=== PATIENT | female | born 1960 | race Caucasian/White ===

== ENCOUNTER 2016-07-09 10:57 | Inpatient (IN) | payer OTHER ==
[~2016-07-09] VITALS: Ht 170.2 cm; Wt 74.8 kg
[~2016-07-09 10:57] MED LIST: ALBUTEROL0.09 MG/A1 INH; AUGMENTIN 875 M1 TAB PO; FLAGYL500 MG PO; LEVSIN0.125 M1 PO; OMEPRAZOLE20 MG PO; PREDNISONE 20MG20 MG PO; REGLAN10 MG PO; ROBITUSSIN W/CO10 ML PO; SEREVENT D0.046 MG/A PO; ZITHROMAX Z-PA250 M1 PO; ZOFRAN ODT4 M1 SL; ZOFRAN ODT4 MG SL; ZOLPIDEM TARTRA10 MG PO
--- NOTE | 2016-07-09 11:02 | NUR ---
IN REGISTRATION PRIOR TO TRIAGE
--- NOTE | 2016-07-09 11:07 | NUR ---
55 Y/O FEMALE REQUESTING ALCOHOL DETOX; STATES SHE DRINKS "A LOT"; PER FAMILY, ? 1 LARGE BOTTLE VODKA A DAY. PT ADMITS TO DRINKING TODAY, "LESS THAN USUAL". PT DENIES EVER DETOXING BEFORE. DENIES HX SEIZURES BUT STATES SHE DOES GET TREMULOUS. HR 100-118 IN TRIAGE. HX BREAST CANCER, L ARM RESTRICTED.
--- NOTE | 2016-07-09 11:15 | NUR ---
care of patient assumed. pt helped out of the wheelchair into the stretcher with assist. pt is unsteady on her feet. pt states she wants help. Had alcohol (vodka) prior to arrival. sister and boyfriend are at the bedside. fall risk precations in place. Pt feels nauseous when she tried to eat and feverish. Waiting for MD negron.
--- NOTE | 2016-07-09 11:20 | ED GENERAL ADULT ---
History of Present Illness General Chief Complaint: General Adult Stated Complaint: "PER SISTER ALCOHOL DETOX " Source: patient Exam Limitations: no limitations Vital Signs & Intake/Output Vital Signs & Intake/Output Vital Signs Date Time Temp Pulse Resp B/P B/P Pulse O2 O2 Flow FiO2 Mean Ox Delivery Rate 07/09 1425 98.2 121 18 116/53 07/09 1339 98.4 104 18 118/74 99 Room Air 07/09 1125 115 126/71 07/09 1104 97.1 116 16 127/86 95 Room Air Allergies Coded Allergies: NO KNOWN ALLERGIES (07/10/14) Reconcile Medications Omeprazole 40 MG CAPSULE. 1 CAP PO DAILY GERD (Reported) Zolpidem Tartrate 10 MG TABLET 1 TAB PO QPMP FOR SLEEP (Reported) Triage Note: 55 Y/O FEMALE REQUESTING ALCOHOL DETOX; STATES SHE DRINKS "A LOT"; PER FAMILY, ? 1 LARGE BOTTLE VODKA A DAY. PT ADMITS TO DRINKING TODAY, "LESS THAN USUAL". PT DENIES EVER DETOXING BEFORE. DENIES HX SEIZURES BUT STATES SHE DOES GET TREMULOUS. HR 100-118 IN TRIAGE. HX BREAST CANCER, L ARM RESTRICTED. Triage Nurses Notes Reviewed? yes Onset: Gradual Duration: week(s): Timing: recent history HPI: 07/09/16 12:36 pm 55-year-old female presents to the emergency department for alcohol intoxication. According to the patient and the family the patient recently lost her job. Since that time she's been drinking every day for the past 4 weeks. No history of DTs or seizures. She is requesting help with her alcohol dependency. The onset of the symptoms of been abrupt, the duration has been for weeks, the severity significant; as her symptoms required her to come to the emergency department for care. Past History Travel History Traveled to [place] past 21 day No Medical History Any Pertinent Medical History? see below for history Neurological: NONE EENT: NONE Cardiovascular: NONE Respiratory: COPD Gastrointestinal: GERD Hepatic: ?GALLBLADDER PROBLEM Renal: NONE Musculoskeletal: L KNEE MENISCUS TEAR Psychiatric: insomnia Endocrine: NONE Blood Disorders: NONE Cancer(s): R BREAST CA DOUBLE MASTECTOMY ENGAGEMENT MANAGER/Reproductive: fibroid, UTERINE FIBROID TUMORS Surgical History Surgical History: non-contributory Psychosocial History What is your primary language Barbadian Tobacco Use: Quit >30 days ago Family History Hx Contributory? No Review of Systems Review of Systems Constitutional: Denies: fever. Physical Exam Physical Exam General Appearance: alert, awake, anxious, moderate distress Head: atraumatic, normal appearance Eyes: Bilateral: normal appearance, PERRL, EOMI. Ears, Nose, Throat: normal pharynx, normal ENT inspection Neck: normal inspection, supple Respiratory: normal breath sounds, chest non-tender Cardiovascular: regular rate/rhythm Peripheral Pulses: 4+ dorsalis pedis (R), 4+ dorsalis pedis (L) Gastrointestinal: soft, non-tender Back: normal range of motion Extremities: normal inspection, no edema Neurologic/Psych: awake, alert Skin: intact, normal color, warm/dry Core Measures ACS in differential dx? No CVA/TIA Diagnosis: No Severe Sepsis Present: No Septic Shock Present: No Progress Differential Diagnoses I considered the following diagnoses in my evaluation of the patient: [Alcohol withdrawal, delirium tremens, alcoholic hepatitis] Plan of Care: Orders Procedure Date/time Status Heart Healthy Diet 07/09 D Active Admit to inpatient 07/09 1650 Active Vital Signs 07/09 1547 Active Code Status 07/09 1547 Active Patient Data 07/09 1530 Active Pathway - chart 07/09 1433 Active CIWA 07/09 1433 Active CIWA 07/09 1230 Active URINE DRUG SCREEN FOR ER ONLY 07/09 1202 Active ETHANOL 07/09 1202 Complete COMPREHENSIVE METABOLIC PANEL 07/09 1202 Complete CBC WITHOUT DIFFERENTIAL 07/09 1202 Complete AMYLASE 07/09 1202 Complete Current Medications Sig/Connor Start time Last Medication Dose Stop Time Status Admin Lorazepam 0.5 MG ONCE 07/14 0000 AC (Ativan) 07/14 0001 Lorazepam 0.5 MG Q6H 07/13 0000 UNVr (Ativan) 07/13 1801 Lorazepam 0.5 MG ONCE ONE 07/12 1800 AC (Ativan) 07/12 1801 Lorazepam 1 MG Q6H 07/12 0000 UNVr (Ativan) 07/12 1201 Lorazepam 1.5 MG Q12H 07/11 0600 UNVr (Ativan) 07/11 1801 Lorazepam 1 MG Q12H 07/11 0000 UNVr (Ativan) 07/11 1201 Lorazepam 1.5 MG Q6 07/10 0600 UNVr (Ativan) 07/10 1801 Lorazepam 2 MG Q2P PRN 07/09 1445 UNVr 07/09 (Ativan) 1457 Lorazepam 1 MG Q2P PRN 07/09 1445 UNVr (Ativan) Folic Acid 1 MG DAILY 07/09 143 UNVr (Folic Acid) 07/11 1001 Lorazepam 2 MG Q6 07/09 143 UNVr (Ativan) 07/10 0001 Multivitamins 1 TAB DAILY 07/09 143 UNVr (Theragran Vitamins) Thiamine HCl 100 MG DAILY 07/09 143 UNVr (Vitamin B1) 07/11 1001 Laboratory Tests 07/09/16 1226: Anion Gap 24 H, Estimated GFR > 60, BUN/Creatinine Ratio 34.4 H, Glucose 70, Calcium 7.6 L, Total Bilirubin 9.2 H, AST 580 H, ALT 149 H, Alkaline Phosphatase 292 H, Total Protein 6.9, Albumin 4.0, Globulin 2.9, Albumin/ Globulin Ratio 1.4, Amylase 34, CBC w Diff MAN DIFF ORDERED, RBC 4.14 L, MCV 101.2 H, MCH 34.7 H, RDW 15.6 H, MPV 8.6, Segmented Neutrophils 61, Band Neutrophils 22 H, Lymphocytes 8 L, Monocytes 9, Platelet Estimate DECREASED, Poikilocytosis 1+, Anisocytosis 1+, Macrocytic Cells 1+, Target Cells 1+, Stomatocytes 1+, PUBS MCHC 34.3, Serum Alcohol 481.0 Initial ED EKG: none Departure Departure Disposition: STILL A PATIENT Condition: Stable Clinical Impression Primary Impression: Alcoholic hepatitis Secondary Impressions: Alcohol dependence with withdrawal Referrals: SEBAS PICKENS,SHANIKA Hernández (PCP/Family) Departure Forms: Customer Survey General Discharge Information Admission Note Spoke With: JOAQUIN FORTUNE MD Documentation of Exam: Documentation of any treatments & extenuating circumstances including Concerns Regarding Discharge (functional status, medication knowledge or non-compliance, living conditions, etc.) that warrant an admission rather than observation: [The patient needs admission for IV fluids, Ativan protocol, neurological evaluations every 6 hours] Alcohol Withdrawl Admission ED Alcohol Detox Admission d/t: CIWA Score >15, Acute MedCond D/T Alcohol Critical Care Note Critical Care Note Critical Care Time: non-applicable Comments: The patient has a bilirubin level greater than 9. Alcoholic hepatitis. She is having a CIWA score of greater than 15 with an initial alcohol level greater than 400.
[2016-07-09] MEDS ORDERED: ZOLPIDEM TARTRA10 M1 PO (11:21)
[2016-07-09] MEDS ORDERED: OMEPRAZOLE40 M1 PO (11:21)
--- NOTE | 2016-07-09 12:07 | NUR ---
SECURITY AT BEDSIDE FOR WANDING, PER RN CARLEE Bender PT WILL NOT BE CHANGED INTO PAPER SCRUBS.
--- NOTE | 2016-07-09 12:29 | NUR ---
LABS DRAWN AND SENT BY THIS MST, BLUE,SST,LAV
[2016-07-09 12:47] LABS: HEMATOCRIT 41.8 % (37-47); MEAN CORPUSCULAR HGB 34.7 PG (27.0-31.0); MEAN CORPUSCULAR HGB CONC 34.3 G/DL (33.0-37.0); MEAN CORPUSCULAR VOLUME 101.2 FL (81.0-99.0); MEAN PLATELET VOLUME 8.6 FL (7.4-10.4); RBC DISTRIBUTION WIDTH 15.6 % (11.5-14.5); RED BLOOD CELL CT 4.14 /CUMM (4.20-5.40); WHITE BLOOD CELL COUNT 5.9 /CUMM (4.8-10.8)
[2016-07-09 12:58] LABS: PLATELET COUNT 84 /CUMM (130-400)
[2016-07-09 14:25] VITALS: BP 116/53
--- NOTE | 2016-07-09 15:03 | NUR ---
CASE MANAGEMENT LM: ANDREW AND I MET WITH PATIENT. ASKED PATIENT IF SHE IS OK WITH US CALLING STATE TO GET A TEMPORARY ID, PT AGREEABLE WITH SAME. CALLED STATES AND OBTAINED TEMPORARY ID #[id number]. CASE MANAGEMENT CONTINUING TO FOLLOW.
--- NOTE | 2016-07-09 15:51 | History & Physical ---
IRAM PICKENS,ABDON 07/09/16 1379: General Information and [facility] MD Statement: I have seen and personally examined THEE MORTON and documented this H&P. The patient is a 55 year old F who was brought by her family members for alcohol detoxification. Source of Information: patient, family (sister), boyfriend Exam Limitations: intoxication History of Present Illness: 55-year-old female with past medical history of right sided breast cancer, status post mastectomy, COPD, GERD, was brought in by her sister for alcohol detoxification. Of note, during the whole course of interview, patient oftentimes appeared drowsy, confused. According to her sister, her boyfriend, and the patient herself, patient used to drink 1-3 shots of cocktails every day, but since June 10 when she lost her job , she started getting depressed and drinking more than usual to the point where she would finish one bottle of vodka every other day. She lives with her warfarin, who says that he also helps her finish her drink, but is concerned that recently she has been drinking more than usual, to the point where today she could not move from where she was. She has been very weak and has not been eating well since past few days. Denies any fever, chills, or seizure-like activity, nausea, vomiting, tremors, dark-colored stools. She admits to being anxious, but does not take anything for anxiety as such. Her last drink was this morning when she had 5-6 pegs of alcohol. She does not have any history of seizures, nor she has tried alcohol detoxification in the past. She mentions that she has been feeling depressed, has lost interest in regular activities, has been drinking more than usual, occasionally sees things that others don't see/visual hallucination, but does note suicidal or homicidal. Her boyfriend admitted to having a pistol at home which nobody uses, but was immediately counseled/notified that this can be a risk and has to be relocated somewhere else. Allergies/Medications Allergies: Coded Allergies: NO KNOWN ALLERGIES (07/10/14) Home Med list Albuterol Sulfate (Ventolin Hfa) 90 MCG HFA.AER.AD 2 PUF INH Q4-6 PRN PRN COPD (Reported) Omeprazole 40 MG CAPSULE. 1 CAP PO DAILY GERD (Reported) Zolpidem Tartrate 10 MG TABLET 1 TAB PO QPMP FOR SLEEP (Reported) Past History Travel History Traveled to [place] past 21 day No Medical History Neurological: NONE EENT: NONE Cardiovascular: NONE Respiratory: COPD Gastrointestinal: GERD Hepatic: ?GALLBLADDER PROBLEM Renal: NONE Musculoskeletal: L KNEE MENISCUS TEAR Psychiatric: insomnia Endocrine: NONE Blood Disorders: NONE Cancer(s): R BREAST CA DOUBLE MASTECTOMY ORTHOPEDIC RN/Reproductive: fibroid, UTERINE FIBROID TUMORS Surgical History Surgical History: non-contributory Past Family/Social History Psychosocial History Where do you live? Home Who Do You Live With? boyfriend Primary Language: Telugu Smoking Status: Former Smoker ETOH Use: heavy use Functional Ability ADLs Independent: dressing, eating, toileting, bathing. Ambulation: independent IADLs Independent: shopping, housework, finances, food prep, telephone, transportation , medication admin. Review of Systems Review of Systems Constitutional: Reports: see HPI, weakness. Denies: chills, diaphoresis, fever, unexplained weight loss. EENTM: Reports: no symptoms. Cardiovascular: Reports: no symptoms. Respiratory: Reports: no symptoms. GI: Reports: no symptoms. Genitourinary: Reports: no symptoms. Musculoskeletal: Reports: no symptoms. Skin: Reports: no symptoms. Neurological/Psychological: Reports: anxiety. Hematologic/Endocrine: Reports: no symptoms. All Other Systems: Reviewed and Negative Post Menopausal: Yes Exam & Diagnostic Data Last 24 Hrs of Vital Signs/I&O Vital Signs Date Time Temp Pulse Resp B/P B/P Pulse O2 O2 Flow FiO2 Mean Ox Delivery Rate 07/09 1915 98.5 124 18 119/81 94 Nasal 2.0L Cannula 07/09 1855 Nasal 2.0L Cannula 07/09 1835 98.4 125 18 114/64 95 Nasal 2.0L Cannula 07/09 1819 122 16 07/09 1717 98.6 124 17 168/84 93 Room Air 07/09 1658 98.8 122 18 172/139 07/09 1425 98.2 121 18 116/53 07/09 1339 98.4 104 18 118/74 99 Room Air 07/09 1125 115 126/71 07/09 1104 97.1 116 16 127/86 95 Room Air Intake & Output 07/09 1600 07/09 0800 07/09 0000 Intake Total 1000 Output Total Balance 1000 Intake, IV 1000 Patient 74.843 kg Weight Weight Reported by Patient Measurement Method Physical Exam General Appearance Alert, Cooperative, No Acute Distress, often times confused Skin Temp/Moisture Exam: Warm/Dry Sepsis Skin Exam (color): Normal for Ethnicity Sepsis Peripheral Pulse Location: Radial Sepsis Peripheral Pulse Exam: Normal Sepsis Cap Refill Exam: <2 Sec Last 24 Hrs of Labs/Naand: Laboratory Tests 07/09/16 1913: PT 13.2 H, INR 1.26 H 07/09/16 1226: Anion Gap 24 H, Estimated GFR > 60, BUN/Creatinine Ratio 34.4 H, Glucose 70, Calcium 7.6 L, Magnesium 2.3, Total Bilirubin 9.2 H, AST 580 H, ALT 149 H, Alkaline Phosphatase 292 H, Total Protein 6.9, Albumin 4.0, Globulin 2.9, Albumin/Globulin Ratio 1.4, Amylase 34, CBC w Diff MAN DIFF ORDERED, RBC 4.14 L , MCV 101.2 H, MCH 34.7 H, RDW 15.6 H, MPV 8.6, Segmented Neutrophils 61, Band Neutrophils 22 H, Lymphocytes 8 L, Monocytes 9, Platelet Estimate DECREASED, Poikilocytosis 1+, Anisocytosis 1+, Macrocytic Cells 1+, Target Cells 1+, Stomatocytes 1+, PUBS MCHC 34.3, Serum Alcohol 481.0 Diagnostic Data Other Results Physical examnination: General: well nourished patient, not in distress, appears intoxicated, but coherant Head: Normocephalic, atraumatic Eyes: Pupils normal in size, regular, reacting to light and accommodation, EOM normal, ICTERUS PRESENT B/L Ears: B/l normal on inspection Nose: Normal on inspection Throat/mouth: Dry mucosa Neck: Supple, full range of motion, no thyromegaly Heart: Regular rate, regular rhythm Lung: Decreased breath sound bilaterally Abd: Soft, non-tender, distention appreciated, BUT NOT TENDER Back: Normal range of motion Extremities: Normal knee exam bilaterally, [no] pedal edema, Distal neurovascular intact Neurologic: Alert, oriented x3, Cranial exam grossly intact, Speech is clear and coherent Skin: Warm and dry Psychiatric: Calm, cooperative, coherant, [no SI], [no HI] Assessment/Plan Assessment: 55-year-old female with past medical history of right sided breast cancer, status post mastectomy, COPD, GERD, was brought in by her sister for alcohol detoxification. Patient is currently being admitted in the general medical floor for for any issues: # Alcohol withdrawal, secondary to alcohol dependence, undergoing detoxification Patient seems to have chronic alcohol-related problems, has recently started drinking heavily, more than usual, but has the will to cut down on alcohol. The first 24 hours the most susceptible for seizures during withdrawal, and the first surgery 2 hours are the ones for delirium tremens. -Admit in general medical floor -Monitor vitals, see what parameters regularly -Patient is put in CIWA protocol -Patient will receive IV infusion of thiamine, folic acid, thiamine tablets and multivitamins -Patient will be given standing dose of [id number] oral Ativan and as needed IV Ativan -We'll monitor for improvement in scores, and will taper Ativan accordingly -Chlordiazepoxide can also be used -Social works consult has been placed, will follow -Psychiatry services have been requested as well #Clinical depression Patient has clear signs of depression, although is not suicidal or homicidal at this point, and has just started alcohol detoxification, but as she improves, psychiatry consultation for depression seems to be appropriate. #Possible chronic liver disease Patient's liver function test results are not normal. Total bilirubin is 9.2, AST 580, ALT 149, alkaline phosphatase 292, INR of 1.26. This is a nonspecific hand of chronic liver disease, given her history of heavy alcoholism. -We'll follow liver function tests in days to come -Have ordered a limited ultrasound of right upper quadrant to rule out cirrhosis /liver disease -Will reassess tmorrow #Diet: Regular diet #DVT prophylaxis: ALPS #CODE STATUS is full code As Ranked By This Provider Problem List: 1. Alcohol dependence with withdrawal 2. Jaundice 3. COPD (chronic obstructive pulmonary disease) 4. GERD (gastroesophageal reflux disease) Core Measures/Miscellaneous Acute Coronary Syndrome ACS Diagnosis: No Cerebrovascular Accident CVA/TIA Diagnosis: No Congestive Heart Failure CHF Diagnosis: No Venous Thromboembolism VTE Risk Factors: Age > 40, Cancer/chemo/oth therapy, Smoking [facility] prophylaxis d/t: No contraindications No VTE Pharm Prophylaxis d/t: No contraindications VTE Diagnosis: No VTE Type: NONE VTE Confirmed by (Test): NONE Severe Sepsis Severe Sepsis Present: No Septic Shock Septic Shock Present: No Miscellaneous Documentation Attending Case Discussed With: JOAQUIN FORTUNE MD Primary Care Physician: SHANIKA MULLEN MD Patient sees these Specialists Psychiatry; Social works. Level of Patient Care: General Medicine JOAQUIN FORTUNE MD 07/09/16 2204: Attending MD Review Statement Attending Statement Attending MD Statement: examined this patient, discuss w/resident/PA/SILVER CHASER, agreed w/resident/PA/SILVER CHASER, reviewed EMR data (avail) Attending Assessment/Plan: 55F PMH EtOH abuse with agitation and tremor in the setting of alcohol withdrawal with rising CIWA scores and impending worsening of symptoms, given EtOH level of 450. Labs also consistent with alcoholic hepatitis. Will start Ativan standing and PRN, IV hydration, GI consult tomorrow, montior LFTs and electrolytes, potential transfer to ICU if worsens. ROSEMARY PARISI [facility] 07/10/16 0600: Resident Review Statement Resident Statement: examined this patient, discussed with production intern, agreed with production intern Other Findings: 55-year-old woman with a past medical history of right sided breast cancer, status post mastectomy, COPD, GERD. She was brought in by her sister for alcohol detoxification. This is her first detox attempt. She consumes half a pint of liquor every day. She has been drinking more heavily since she lost her job on June 10. She denies seizures but has been seeing some "adriano objects" in her vision since this morning. Her labs are significant for thrombocytopenia of 84, Total bilirubin 9.2, AST 580, ALT 149, ALP 292, Amylase normal. Serum alcohol 481. Physical examnination: General: well nourished patient, not in distress, appears intoxicated, but coherant Head: Normocephalic, atraumatic Eyes: Pupils normal in size, regular, reacting to light and accommodation, EOM normal, ICTERUS PRESENT B/L Ears: B/l normal on inspection Nose: Normal on inspection Throat/mouth: Dry mucosa Neck: Supple, full range of motion, no thyromegaly Heart: Regular rate, regular rhythm Lung: Decreased breath sound bilaterally Abd: Soft, non-tender, distention appreciated, BUT NOT TENDER Back: Normal range of motion Extremities: Normal knee exam bilaterally, [no] pedal edema, Distal neurovascular intact Neurologic: Alert, oriented x3, Cranial exam grossly intact, Speech is clear and coherent Skin: Warm and dry Psychiatric: Calm, cooperative, coherant, [no SI], [no HI] Problem list 1. Alcohol withdrawal 2. Alcoholic liver disease 3. GERD 4. COPD Plan Admit to Gen Med IV Ativan as per [facility] protocol PO librium 25 mg Q6 hrs standing Watch for severe withdrawal and low threshhold for ativan drip IV banana bag 1L x 1, then continue with PO multivitamins, thiamine and folic acid daily Monitor electrolytes and liver function test and relplete accordingly Do baseline EKG TRC evaluation for nebulilzaer therapy for hx of COPD IV morphine 2 mg Q6 hrs for severe pain DVT ppx ALPS Patient is full code
--- NOTE | 2016-07-09 15:51 | NUR ---
REPORT RECEIVED. PT RESTING COMFORTABLY AT THIS TIME. O2 SATURATION 98%RA AND HEART RATE 87. FAMILY AT BEDSIDE.
--- NOTE | 2016-07-09 15:52 | NUR ---
AWAITING URINE SPECIMEN.
--- NOTE | 2016-07-09 16:25 | NUR ---
CASE MANAGEMENT LM: SUBMITTED [facility] REQUEST FOR AUTH. WILL CONTINUE TO CHECK FOR POSSIBLE APPROVAL.
--- NOTE | 2016-07-09 16:38 | NUR ---
HOUSE STAFF IN ROOM EVALUATING THE PT.
[2016-07-09 16:58] VITALS: BP 172/139
--- NOTE | 2016-07-09 17:00 | NUR ---
CASE MANAGEMENT LM: AUTHORIZATION RECEIVED #[id number], DATES OF SERVICE 07/09/2016-07/14/2016. [address] BADILLO AND ADMITTING AWARE OF SAME.
--- NOTE | 2016-07-09 17:01 | NUR ---
VITAL SIGNS OBTAINED. CIWA SCORE OF 10. ADMINISTERED SCHEDULE ATIVAN ORDERED.
--- NOTE | 2016-07-09 17:14 | NUR ---
PT ADMITTED TO ROOM 204-1
--- NOTE | 2016-07-09 17:27 | NUR ---
ATTEMPTED TO CALL REPORT. RN WILL CALL BACK.
--- NOTE | 2016-07-09 17:47 | NUR ---
REPORT CALLED. PAGED HOUSE STAFF FOR PT'S HEART RATE OCCASIONALLY IN 130'S. HEART RATE 123 AT THIS TIME.
--- NOTE | 2016-07-09 17:49 | NUR ---
O2 OCCASIONALLY IN 80'S. PLACED ON O2 2L NC PER MOD'S ORDER. PT TO GET AN EKG PRIOR TO ADMISSION TO THE FLOOR.
[2016-07-09] MEDS ORDERED: VENTOLIN HFA18 GM INH (17:50)
--- NOTE | 2016-07-09 18:28 | NUR ---
PT'S EKG NOTED ST 122. REMAINS ALERT AND ORIENTED X 3. UPDATED FLOOR NURSE. PT READY TO BE TRANSFERED.
--- NOTE | 2016-07-09 18:41 | NUR ---
THEE MORTON Nurse Note by: COLIN BOLTON I agree with the FINANCE ADMIN findings/evaluation of this patient's condition. Entered by: COLIN BOLTON Date: 07/09/16 Time: 1840
[2016-07-09 19:15] VITALS: BP 119/81
[2016-07-09 19:37] LABS: PT 13.2 SEC (9.4-12.5)
--- NOTE | 2016-07-09 20:12 | NUR ---
NURSING NOTE; LATE ENTRY; PT ADMITTED TO ROOM 204-01 FROM THE ER VIA STRETCHER AT 1855, PT ALERT AND FORGETFUL AT TIMES, ON 2LNC, SKIN INTACT, FAMILY AT BEDISIDE, ORIENTED TO ROOM AND CALL GONZALEZ, SAFETY PRECAUTIONS IN PLACE
--- NOTE | 2016-07-09 22:04 | Admission Certification ---
Admission Certification Certification Statement - As attending physician, I certify that at the time of - admission, based on clinical presentation, severity of - symptoms, need for further diagnostic testing and - therapeutic interventions, and risk of adverse outcomes - without in-hospital treatment, in my clinical assessment, - this patient requires an acute hospital stay for a minimum - of two nights or longer. I have also considered psychsocial - factors such as support system, advanced age, financial - issues, cognitive issues, and failed out-patient treatments, - past re-admission history, safety of patient, and lack of - compliance as applicable. Specific rationale supporting this admission is: Alcohol withdrawal with alcoholic hepatitis
[2016-07-09 22:42] VITALS: BP 120/80
[2016-07-10 02:00] VITALS: BP 140/80
[2016-07-10 06:00] VITALS: BP 140/66
[2016-07-10 07:17] VITALS: BP 140/66
--- NOTE | 2016-07-10 07:43 | Cons- Gastroenterology ---
General Information and HPI Consulting Request Date of Consult: 07/10/16 Requested By: JOAQUIN FORTUNE MD Reason for Consult: Increased LFTs, etoh hepatitis. Source of Information: patient, family, old records Exam Limitations: no limitations History of Present Illness: Ms. Villatoro is a 55 year old female with a history of heavy etoh use and diarrhea predominant IBS who presented to yesterday for etoh detox. She has been followed by me for diarrhea and GERD for the past sevearl years during which times she has been noted to have moderately elevated LFTs for which etoh was the suspecting offender, but she always minimized how much she drank. She lost her job in late May and since that time she has been drinking more heavily. This has been associated with depression and progressive weakness. She has not been having any significant abdominal pain or vomiting, but she has not been eating very well. Her heartburn is under good control with a ppi and she is without any significant dysphagia. She continues to have some non-bloody diarrhea which is not significantly changed from her baseline. She has not noticed herself to be jaundiced. On arrival to the ER she was noted to be a bit confused, but she was hemodynamically stable and afebrile. She was admitted to the medical service and started on a CIWA protocol and given MVI/thiamine/folate. Of note her last drink was morning of admission. Allergies/Medications Allergies: Coded Allergies: NO KNOWN ALLERGIES (07/10/14) Home Med List: Albuterol Sulfate (Ventolin Hfa) 90 MCG HFA.AER.AD 2 PUF INH Q4-6 PRN PRN COPD (Reported) Omeprazole 40 MG CAPSULE.DR 1 CAP PO DAILY GERD (Reported) Zolpidem Tartrate 10 MG TABLET 1 TAB PO QPMP FOR SLEEP (Reported) Current Medications: Current Medications Sig/Connor Start time Last Medication Dose Route Stop Time Status Admin Albuterol Sulfate 3 ML Q4-PRN PRN 07/09 2129 AC INH Chlordiazepoxide HCl 0 .STK-MED ONE 07/09 1826 DC PO Chlordiazepoxide HCl 25 MG Q6 07/09 1803 AC 07/10 PO 0625 Cyanocobalamin/ 1 BAG ONCE ONE 07/09 1800 DC 07/09 Thiamine/Pyridoxine IV 07/10 Dextrose/Water 1,000 ML Folic Acid 1 MG DAILY 07/09 1433 AC 07/09 PO 07/11 1001 1657 Lorazepam 0.5 MG ONCE 07/14 0000 DC PO 07/14 0001 Lorazepam 0.5 MG Q6H 07/13 0000 DC PO 07/13 1801 Lorazepam 0.5 MG ONCE ONE 07/12 1800 DC PO 07/12 1801 Lorazepam 1 MG Q6H 07/12 0000 DC PO 07/12 1201 Lorazepam 1.5 MG Q12H 07/11 0600 DC PO 07/11 1801 Lorazepam 1 MG Q12H 07/11 0000 DC PO 07/11 1201 Lorazepam 1.5 MG Q6 07/10 0600 DC PO 07/10 1801 Lorazepam 0 Q1P PRN 07/09 1830 AC IV Lorazepam 0 .STK-MED ONE 07/09 1827 DC PO Lorazepam 0 .STK-MED ONE 07/09 1652 DC PO Lorazepam 0 .STK-MED ONE 07/09 1501 DC PO Lorazepam 2 MG ONCE ONE 07/09 1445 DC 07/09 PO 07/09 1446 1657 Lorazepam 2 MG Q2P PRN 07/09 1445 DC 07/09 PO 1457 Lorazepam 1 MG Q2P PRN 07/09 1445 DC PO Lorazepam 2 MG Q6 07/09 1433 DC 07/09 PO 07/10 0001 1820 Morphine Sulfate 2 MG Q6PRN PRN 07/10 0630 AC IV Multivitamins 1 TAB DAILY 07/09 1433 AC 07/09 PO 1657 Sodium Chloride 1,000 ML Q10H 07/10 0615 AC 07/10 IV 0630 Sodium Chloride 1,000 ML BOLUS ONE 07/09 1215 DC 07/09 IV 07/09 1314 1245 Thiamine HCl 100 MG DAILY 07/09 1433 AC 07/09 PO 07/11 1001 1657 Past History Travel History Traveled to [place] past 21 day No Medical History Blood Transfusion Hx: No Neurological: NONE EENT: NONE Cardiovascular: NONE Respiratory: COPD Gastrointestinal: GERD Hepatic: ?GALLBLADDER PROBLEM Renal: NONE Musculoskeletal: L KNEE MENISCUS TEAR Psychiatric: insomnia Endocrine: NONE Blood Disorders: NONE Cancer(s): R BREAST CA DOUBLE MASTECTOMY CABINET PROFESSIONAL/Reproductive: fibroid, UTERINE FIBROID TUMORS Surgical History Surgical History: R MASTECTOMY HYSTERECTOMY L KNEE SURGERY Psychosocial History Where Do You Live? Home Who Do You Live With? boyfriend Primary Language: Turkmen Smoking Status: Former Smoker ETOH Use: heavy use Functional Ability ADLs Independent: dressing, eating, toileting, bathing. Ambulation: independent IADLs Independent: shopping, housework, finances, food prep, telephone, transportation , medication admin. Review of Systems Review of Systems Constitutional: Reports: malaise, weakness. Denies: chills, diaphoresis, fever. EENTM: Denies: no symptoms. Cardiovascular: Denies: no symptoms. Respiratory: Denies: no symptoms. GI: Reports: see HPI. Genitourinary: Denies: no symptoms. Musculoskeletal: Denies: no symptoms. Skin: Denies: no symptoms. Neurological/Psychological: Reports: anxiety, depressed. Hematologic/Endocrine: Denies: no symptoms. Immunologic/Allergic: Denies: no symptoms. All Other Systems: Reviewed and Negative Exam & Diagnostic Data Vital Signs and I&O Vital Signs Date Time Temp Pulse Resp B/P B/P Pulse O2 O2 Flow FiO2 Mean Ox Delivery Rate 07/10 0717 98.3 124 20 140/66 94 Nasal 2.0L Cannula 07/10 0200 99.7 125 24 140/80 93 Nasal 1.0L Cannula 07/09 2242 97.8 124 18 120/80 94 Nasal 2.0L Cannula 07/09 2122 Nasal 2.0L Cannula 07/09 1915 98.5 124 18 119/81 94 Nasal 2.0L Cannula 07/09 1855 Nasal 2.0L Cannula 07/09 1835 98.4 125 18 114/64 95 Nasal 2.0L Cannula 07/09 1819 122 16 07/09 1717 98.6 124 17 168/84 93 Room Air 07/09 1658 98.8 122 18 172/139 07/09 1425 98.2 121 18 116/53 07/09 1339 98.4 104 18 118/74 99 Room Air 07/09 1125 115 126/71 07/09 1104 97.1 116 16 127/86 95 Room Air Intake & Output 07/10 1600 07/10 0400 07/09 1600 07/09 0400 07/08 1600 07/08 0400 Intake Total 1850 1000 Output Total 400 Balance -400 1850 1000 Intake, IV 1500 1000 Intake, Oral 350 Number 3 2 Bowel Movements Output, Urine 400 Patient 165 lb 165 lb Weight Weight Reported by Patient Reported by Patient Measurement Method Physical Exam General Appearance: well developed/nourished, no apparent distress, lethargic Head: atraumatic, normal appearance Eyes: Bilateral: other (scleral icterus). Ears, Nose, Throat: normal pharynx, normal ENT inspection Neck: normal inspection, supple, full range of motion Respiratory: normal breath sounds, chest non-tender, decreased breath sounds Cardiovascular: regular rate/rhythm Gastrointestinal: normal bowel sounds, soft, non-tender Rectal: deferred Back: normal inspection, normal range of motion Results Pertinent Lab Results: Laboratory Tests 07/10 07/09 07/09 0626 1913 1226 Chemistry Sodium (137 - 145 mmol/L) Pending 135 L Potassium (3.5 - 5.1 mmol/L) Pending 3.8 Chloride (98 - 107 mmol/L) Pending 91 L Carbon Dioxide (22 - 30 mmol/L) Pending 21 L Anion Gap (5 - 16) Pending 24 H BUN (7 - 17 mg/dL) Pending 31 H Creatinine (0.5 - 1.0 mg/dL) Pending 0.9 Estimated GFR (>60 ml/min) > 60 BUN/Creatinine Ratio (7 - 25 %) Pending 34.4 H Glucose (65 - 99 mg/dL) 70 Calcium (8.4 - 10.2 mg/dL) 7.6 L Magnesium (1.6 - 2.3 mg/dL) Pending 2.3 Total Bilirubin (0.2 - 1.3 mg/dL) Pending 9.2 H Direct Bilirubin Pending AST (14 - 36 U/L) Pending 580 H ALT (9 - 52 U/L) Pending 149 H Alkaline Phosphatase (<127 U/L) Pending 292 H Total Protein (6.3 - 8.2 g/dL) Pending 6.9 Albumin (3.5 - 5.0 g/dL) Pending 4.0 Globulin (1.9 - 4.2 gm/dL) 2.9 Albumin/Globulin Ratio (1.1 - 2.2 %) 1.4 Amylase (30 - 110 U/L) 34 Coagulation PT (9.4 - 12.5 SEC) 13.2 H INR (0.90 - 1.19) 1.26 H Hematology CBC w Diff Pending MAN DIFF ORDERED WBC (4.8 - 10.8 /CUMM) Pending 5.9 RBC (4.20 - 5.40 /CUMM) Pending 4.14 L Hgb (12.0 - 16.0 G/DL) Pending 14.4 Hct (37 - 47 %) Pending 41.8 MCV (81.0 - 99.0 FL) Pending 101.2 H MCH (27.0 - 31.0 PG) Pending 34.7 H RDW (11.5 - 14.5 %) Pending 15.6 H Plt Count (130 - 400 /CUMM) Pending 84 L MPV (7.4 - 10.4 FL) Pending 8.6 Segmented Neutrophils (42.2 - 75.2 %) 61 Band Neutrophils (0.0 - 5.0 %) 22 H Lymphocytes (20.5 - 51.1 %) 8 L Monocytes (1.7 - 9.3 %) 9 Platelet Estimate (ADEQUATE) DECREASED Poikilocytosis 1+ Anisocytosis 1+ Macrocytic Cells 1+ Target Cells 1+ Stomatocytes 1+ PUBS MCHC (33.0 - 37.0 G/DL) Pending 34.3 Toxicology Serum Alcohol (<10 MG/DL) 481.0 07/09 1202 Toxicology Methadone Screen Cancelled Barbiturate Screen Cancelled Ur Phencyclidine Scrn Cancelled Amphetamines Screen Cancelled U Benzodiazepines Scrn Cancelled Urine Cocaine Screen Cancelled Urine Cannabis Screen Cancelled Maddrey score : 14.7 (using a control PT of 12 and it goes to 26.7 if a PT control of 9.4 is used) Imaging/Other Studies: 12/17/15 US: SERVICE DATE: 12/17/15 EXAM TYPE: US - US-LIMITED ABDOMEN EXAMINATION: ABDOMINAL ULTRASOUND LIMITED CLINICAL INFORMATION: Right upper quadrant pain. COMPARISON: None. TECHNIQUE: Real-time imaging of the right upper quadrant abdominal viscera. FINDINGS: PANCREAS: The visualized pancreatic head and body are normal in appearance. The remainder of the pancreas is obscured from visualization by the overlying bowel gas. LIVER: The liver is of normal size and diffuse increased echogenicity without focal lesions nor intrahepatic biliary ductal dilation. GALLBLADDER: The gallbladder is not visualized. COMMON BILE DUCT: The common duct measures 3 mm. RIGHT KIDNEY: Normal. No hydronephrosis. No renal calculi or focal parenchymal lesions. The kidney measures 10.5 cm in maximum dimension. FREE FLUID: None. IMPRESSION: Liver of diffuse increased echogenicity without focal lesions. The appearance is nonspecific, but consistent with fatty infiltration. Gallbladder not visualized. Penetration through the fatty liver is limited. SERVICE DATE: 12/17/15 EXAM TYPE: CAT - CT ABD & PELVIS W IV CONTRAST EXAMINATION: CT ABDOMEN AND PELVIS WITH CONTRAST CLINICAL INFORMATION: Diarrhea. COMPARISON: CT abdomen and pelvis 01/24/2012. TECHNIQUE: Multidetector volumetric imaging was performed of the abdomen and pelvis before and after the IV administration of 95 mL of Optiray 320 intravenous contrast. Sagittal and coronal reformatted images were obtained on the technologist's workstation. DLP: 347 mGy-cm. FINDINGS: LUNG BASES: The visualized lung bases are unremarkable. LIVER, GALLBLADDER, AND BILIARY TREE: There is diffuse low-attenuation of the liver parenchyma, indicative of diffuse hepatic steatosis. The liver is mildly enlarged and is visualized measuring 19 cm in length. No focal hepatic lesions are identified and there is no appreciable biliary ductal dilatation. There are several calcified stones within the gallbladder lumen. The gallbladder is contracted, limiting evaluation. No pericholecystic inflammatory changes are identified. PANCREAS: Unremarkable. SPLEEN: Unremarkable. ADRENAL GLANDS: Unremarkable. KIDNEYS AND URETERS: The kidneys are normal in size and enhance homogeneously, without focal lesions. There is no appreciable nephrolithiasis or hydroureteronephrosis of either kidney or renal collecting system. No ureteral stones are identified. BLADDER: Unremarkable. GASTROINTESTINAL TRACT: Normal anatomic orientation of the stomach relative to the duodenum. Normal caliber of abdominal and pelvic bowel loops, without evidence of obstruction or ileus. No circumferential bowel wall thickening with surrounding inflammatory changes to suggest an underlying infectious or inflammatory enterocolitis. Normal-appearing appendix within the right lower quadrant of the abdomen. Scattered colonic diverticulosis, notably involving the cecum, ascending and transverse colon, without secondary signs of acute diverticulitis. There is questionable mild circumferential thickening of the cecum and ascending colon as well as the proximal segment of the transverse colon. This finding is nonspecific and may be secondary to colonic underdistention although a superimposed mild colitis cannot be excluded in the appropriate clinical setting. There is also submucosal deposition of fat within the aforementioned segments of the colon, which can be seen as a sequela of chronic infection or inflammation of the bowel. No organizing intra-abdominal fluid collections or free intraperitoneal air. ABDOMINAL WALL: No significant hernia is appreciated. LYMPH NODES: No significant abdominal or pelvic adenopathy. VASCULAR: Evaluation of the abdominal vasculature is notable for significant narrowing involving the intrahepatic and extrahepatic segments of the IVC. This finding is indeterminate and of uncertain etiology. The abdominal aorta and its branching vessels are patent and opacified by intravenous contrast. PELVIC VISCERA: Unremarkable. OSSEOUS STRUCTURES: No acute osseous abnormality. Normal alignment of the imaged thoracolumbar spine. No acute osseous abnormality. No destructive osseous lesions are identified. IMPRESSION: 1. Questionable mild circumferential thickening of the cecum, ascending and transverse colon without significant pericolonic inflammatory changes. This finding is nonspecific and may be secondary to colonic underdistention although a superimposed mild colitis cannot be excluded in the appropriate clinical setting. Correlate with patient symptomatology, lab values and stool culture. 2. Significant narrowing involving the intrahepatic and extrahepatic segments of the IVC. This finding is indeterminate and of uncertain etiology. Narrowing of the IVC may be iatrogenic, angiopathic or may represent sequela of prior thrombus or inflammation of the IVC. 3. Mild hepatomegaly and diffuse hepatic steatosis. Assessment/Plan Assessment/Recommendations: Assessment: Ms. Villatoro is a 55 year old female with D-IBS, GERD and etoh abuse who has been drinking more heavily over the past month and now has laboratory evidence of alcoholic hepatitis which I am hopeful will improve with abstinence from etoh. She did not have any evidence of a cirrhotic appearing liver on an US last December so I am hopeful that she doesn't have cirrhosis, but her platelet count is depressed, which could just be secondary to bone marrow suppression from etoh, and this could be indicative of underlying portal hypertension. Her discriminant function doesn't meet criteria for steroids (regardless of the PT control time that is used) and even if it did using steroids for alcoholic hepatitis is controversial at best. She has good renal function and while she is requiring some benzodiazepenes for etoh withdrawal symptoms she is currently without obvious DTs or hepatic encephalopathy. Of note, she continues to complain of diarrhea which has been a chronic problem for her and a work up in the past has been unremarkable including negative celiac serologies and a negative small bowel biopsy, negative stool studies, and a negative colonoscopy with negative random biopsies which were all done in 2013. I have attributed it to IBS in the past and I also feel it is possible some of the diarrhea may be related to her etoh intake. I would recommend checking stool studies to rule out infectious causes of diarrhea and if this is negative would start imodium as needed which is what she has been using at home for the past several years. Recommendations: 1. Follow daily LFTs and INR and would continue to observe off of steroids 2. Use benzodiazepenes as needed for etoh withdrawal symptoms 3. Social service consult for etoh abuse 4. Check stool studies to rule out infectious causes of diarrhea and if they are negative would then recommend using imodium as needed. 5. Continue omeprazole as needed for heartburn. 6. Consideration will be given to repeat an EGD as an outpatient to assess for varices 7. Follow up US to assess for ascites and/or radiographic evidence of cirrhosis. 8. Low sodium diet as tolerated. I will continue to follow this patient and make further recommendations based on her clinical course and results of repeat blood work, US and stool testing. Copies To: SEBAS PICKENS,SHANIKA Hernández Consult Acknowledgment - Thank you for your consult request.
--- NOTE | 2016-07-10 08:10 | PN- Housestaff ---
Subjective Follow-up For: EtOH detox; Anxiety; Alcoholic liver disease. Complaints: no complaints Subjective: Patient followed up by me this morning. She was resting comfortably in bed, not in distress, was calm, coherent, offered no complaints, vital signs were stable, no overnight issues. Her CIWA scores overnight has been consistently low. No SI /HI. She was started on a tapered lorazepam dose since her admission, which needs reassessment daily. Review of Systems Constitutional: Reports: no symptoms. Objective Last 24 Hrs of Vital Signs/I&O Vital Signs Date Time Temp Pulse Resp B/P B/P Pulse O2 O2 Flow FiO2 Mean Ox Delivery Rate 07/10 0717 98.3 124 20 140/66 94 Nasal 2.0L Cannula 07/10 0200 99.7 125 24 140/80 93 Nasal 1.0L Cannula 07/09 2242 97.8 124 18 120/80 94 Nasal 2.0L Cannula 07/09 2122 Nasal 2.0L Cannula 07/09 1915 98.5 124 18 119/81 94 Nasal 2.0L Cannula 07/09 1855 Nasal 2.0L Cannula 07/09 1835 98.4 125 18 114/64 95 Nasal 2.0L Cannula 07/09 1819 122 16 07/09 1717 98.6 124 17 168/84 93 Room Air 07/09 1658 98.8 122 18 172/139 07/09 1425 98.2 121 18 116/53 07/09 1339 98.4 104 18 118/74 99 Room Air 07/09 1125 115 126/71 07/09 1104 97.1 116 16 127/86 95 Room Air Intake & Output 07/10 1600 07/10 0800 07/10 0000 Intake Total 1850 Output Total 400 Balance -400 1850 Intake, IV 1500 Intake, Oral 350 Number 3 2 Bowel Movements Output, Urine 400 Patient 74.843 kg Weight Weight Reported by Patient Measurement Method Physical Exam General Appearance: Alert, Oriented X3, Cooperative, No Acute Distress Other Physical Findings: General: well nourished patient, not in distress, appears intoxicated, but coherant Head: Normocephalic, atraumatic Eyes: Pupils normal in size, regular, reacting to light and accommodation, EOM normal, ICTERUS PRESENT B/L Ears: B/l normal on inspection Nose: Normal on inspection Throat/mouth: Dry mucosa Neck: Supple, full range of motion, no thyromegaly Heart: Regular rate, regular rhythm Lung: Decreased breath sound bilaterally Abd: Soft, non-tender, distention appreciated, BUT NOT TENDER Back: Normal range of motion Extremities: Normal knee exam bilaterally, no pedal edema, Distal neurovascular intact Neurologic: Alert, oriented x3, Cranial exam grossly intact, Speech is clear and coherent Skin: Warm and dry Psychiatric: Calm, cooperative, coherant, no SI, no HI Current Medications: Current Medications Sig/Connor Start time Last Medication Dose Route Stop Time Status Admin Albuterol Sulfate 3 ML Q4-PRN PRN 07/09 2130 AC INH Chlordiazepoxide HCl 0 .STK-MED ONE 07/09 1826 DC PO Chlordiazepoxide HCl 25 MG Q6 07/09 1803 AC 07/10 PO 0625 Cyanocobalamin/ 1 BAG ONCE ONE 07/09 1800 DC 07/09 Thiamine/Pyridoxine IV 07/10 0159 2022 Dextrose/Water 1,000 ML Folic Acid 1 MG DAILY 07/09 1433 AC 07/09 PO 07/11 1001 1657 Lorazepam 0.5 MG ONCE 07/14 0000 DC PO 07/14 0001 Lorazepam 0.5 MG Q6H 07/13 0000 DC PO 07/13 1801 Lorazepam 0.5 MG ONCE ONE 07/12 1800 DC PO 07/12 1801 Lorazepam 1 MG Q6H 07/12 0000 DC PO 07/12 1201 Lorazepam 1.5 MG Q12H 07/11 0600 DC PO 07/11 1801 Lorazepam 1 MG Q12H 07/11 0000 DC PO 07/11 1201 Lorazepam 1.5 MG Q6 07/10 0600 DC PO 07/10 1801 Lorazepam 0 Q1P PRN 07/09 1830 AC IV Lorazepam 0 .STK-MED ONE 07/09 1827 DC PO Lorazepam 0 .STK-MED ONE 07/09 1652 DC PO Lorazepam 0 .STK-MED ONE 07/09 1501 DC PO Lorazepam 2 MG ONCE ONE 07/09 1445 DC 07/09 PO 07/09 1446 1657 Lorazepam 2 MG Q2P PRN 07/09 1445 DC 07/09 PO 1457 Lorazepam 1 MG Q2P PRN 07/09 1445 DC PO Lorazepam 2 MG Q6 07/09 1433 DC 07/09 PO 07/10 0001 1820 Morphine Sulfate 2 MG Q6PRN PRN 07/10 0630 IV Multivitamins 1 TAB DAILY 07/09 1433 07/09 PO 1657 Sodium Chloride 1,000 ML Q10H 07/10 0615 AC 07/10 IV 0630 Sodium Chloride 1,000 ML BOLUS ONE 07/09 1215 DC 07/09 IV 07/09 1314 1245 Thiamine HCl 100 MG DAILY 07/09 1433 07/09 PO 07/11 1001 1657 Last 24 Hrs of Lab/Anand Results Last 24 Hrs of Labs/Mics: Laboratory Tests 07/10/16 0626: Sodium Pending, Potassium Pending, Chloride Pending, Carbon Dioxide Pending, Anion Gap Pending, BUN Pending, Creatinine Pending, BUN/Creatinine Ratio Pending , Magnesium Pending, Total Bilirubin Pending, Direct Bilirubin Pending, AST Pending, ALT Pending, Alkaline Phosphatase Pending, Total Protein Pending, Albumin Pending, CBC w Diff Pending, WBC Pending, RBC Pending, Hgb Pending, Hct Pending, MCV Pending, MCH Pending, RDW Pending, Plt Count Pending, MPV Pending, PUBS MCHC Pending 07/09/16 1913: PT 13.2 H, INR 1.26 H 07/09/16 1226: Anion Gap 24 H, Estimated GFR > 60, BUN/Creatinine Ratio 34.4 H, Glucose 70, Calcium 7.6 L, Magnesium 2.3, Total Bilirubin 9.2 H, AST 580 H, ALT 149 H, Alkaline Phosphatase 292 H, Total Protein 6.9, Albumin 4.0, Globulin 2.9, Albumin/Globulin Ratio 1.4, Amylase 34, CBC w Diff MAN DIFF ORDERED, RBC 4.14 L , MCV 101.2 H, MCH 34.7 H, RDW 15.6 H, MPV 8.6, Segmented Neutrophils 61, Band Neutrophils 22 H, Lymphocytes 8 L, Monocytes 9, Platelet Estimate DECREASED, Poikilocytosis 1+, Anisocytosis 1+, Macrocytic Cells 1+, Target Cells 1+, Stomatocytes 1+, PUBS MCHC 34.3, Serum Alcohol 481.0 07/09/16 1202: Methadone Screen Cancelled, Barbiturate Screen Cancelled, Ur Phencyclidine Scrn Cancelled, Amphetamines Screen Cancelled, U Benzodiazepines Scrn Cancelled, Urine Cocaine Screen Cancelled, Urine Cannabis Screen Cancelled Microbiology 07/10 4597 STOOL: Clostridium difficile Toxin A & B - RECD Assessment/Plan Assessment: 55-year-old female with past medical history of right sided breast cancer, status post mastectomy, COPD, GERD, was brought in by her sister for alcohol detoxification. Patient is currently being admitted in the general medical floor for for any issues: # Alcohol withdrawal, secondary to alcohol dependence, undergoing detoxification Patient seems to have chronic alcohol-related problems, has recently started drinking heavily, more than usual, but has the will to cut down on alcohol. The first 24 hours the most susceptible for seizures during withdrawal, and the first surgery 2 hours are the ones for delirium tremens. -Continue in general medical floor -Monitor vitals, CIWA parameters regularly -Patient is put in CIWA protocol -Continue thiamine, folic acid, and multivitamins, increased duration to daily today from 3 doses per Psych consult. -Patient will be given standing dose of [id number] oral Ativan and as needed IV Ativan. Monitoring for improvement in scores, and tapering Ativan accordingly. her CIWA scores have improved, mostly 0 this morning, will taper accordingly. Since automatic taper was ordered at admission, will revise the orders daily. -Given her liver sysfunction currently, Chlordiazepoxide was stopped. -After her detox is over, she might be started on acamprosate 666 mg 3 times daily per Psychiatry consult. -Social works consult has been placed, will follow. -Appreciate Psychiatry services consult. #Clinical depression/Major Depressive Disorder, no SI/HI Patient has clear signs of depression, although is not suicidal or homicidal at this point, and has just started alcohol detoxification, but as she improves, psychiatry consultation for depression seems to be appropriate. Not starting any psychotropics per Psychiatric consult currently. Will reassess as she is detoxified. #Alcoholic liver liver disease, hepatitis Patient's Total bilirubin was 9.2, AST 580, ALT 149, alkaline phosphatase 292, INR of 1.26 on admission. Her discriminant factor was calculated with attending today, which is 19.3, so does not have a poor prognosis, and will not need steroids. GI service on board, appreciate consultation. Will follow LFT, BEP, and CBC as her platelets are also low. - Will also follow limited ultrasound of right upper quadrant. #Hypokalemia K was 3.3 today, repleted with 40meq PO. Will recheck BEP tomorrow. #IBS Patient's complaint is much reduced today. Following GI consultation. #Diet: Regular diet #DVT prophylaxis: ALPS #CODE STATUS is full code Problem List: 1. Alcohol dependence with withdrawal 2. Alcoholic hepatitis 3. COPD (chronic obstructive pulmonary disease) 4. GERD (gastroesophageal reflux disease) 5. Diarrhea 6. IBS (irritable bowel syndrome) Pain Ratin Pain Location: - Pain Goal: Pain 4 or less Pain Plan: prn Tomorrow's Labs & Rationales: BEP, LFT, CBC to follow hepatitis, and plt
[2016-07-10 08:35] LABS: MEAN CORPUSCULAR HGB 34.5 PG (27.0-31.0); MEAN CORPUSCULAR HGB CONC 33.7 G/DL (33.0-37.0); MEAN CORPUSCULAR VOLUME 102.3 FL (81.0-99.0); MEAN PLATELET VOLUME 9.2 FL (7.4-10.4); RBC DISTRIBUTION WIDTH 15.6 % (11.5-14.5); RED BLOOD CELL CT 3.48 /CUMM (4.20-5.40); WHITE BLOOD CELL COUNT 3.9 /CUMM (4.8-10.8)
[2016-07-10 10:03] LABS: HEMATOCRIT 35.6 % (37-47); PLATELET COUNT 72 /CUMM (130-400)
--- NOTE | 2016-07-10 11:22 | NUR ---
NURSING NOTE: PATIENT LEFT FLOOR VIA STRETCHER WITH DISTRIBUTION FOR ULTRASOUND. PATIENT ON O2@1L NC. PATIENT A/OX3, CIWA SCORE 3. WILL AWAIT RETURN. PATIENT NPO FOR TEST SINCE MIDNIGHT.
--- NOTE | 2016-07-10 12:15 | NUR ---
NURSING NOTE: PATIENT RETURNED TO FLOOR VIA STRETCHER WITH DISTRIBUTION. PATIENT A/OX3. CIWA SCORE UNCHANGED. WILL CONTINUE TO MONITOR. DIET STATUS CHANGED.
--- NOTE | 2016-07-10 13:48 | Cons- Psychiatry ---
Psychiatric Consult Date of Consult: 07/10/16 Reason for Consult: Alcohol withdrawal, concern for depression Allergies: Coded Allergies: NO KNOWN ALLERGIES (07/10/14) Past History Past Medical History Neurological: NONE EENT: NONE Cardiovascular: NONE Respiratory: COPD Gastrointestinal: GERD Hepatic: ?GALLBLADDER PROBLEM Renal: NONE Musculoskeletal: L KNEE MENISCUS TEAR Psychiatric: insomnia Endocrine: NONE Blood Disorders: NONE Cancer(s): R BREAST CA DOUBLE MASTECTOMY INSULATION HOSEMAN/Reproductive: fibroid, UTERINE FIBROID TUMORS Past Surgical History Surgical History: R MASTECTOMY HYSTERECTOMY L KNEE SURGERY Assessment/Plan Impression: Chief complaint: "Weren't you here before?" Brief HPI: 55-year-old domiciled, recently unemployed female living with her boyfriend in [place], history of chronic off-and-on alcohol use over the past 6 years which has worsened significantly in the past 3 weeks 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 Reports drinking upwards of 1 bottle of vodka daily, complicated by numerous depressive symptoms including poor mood, anergia, anhedonia, poor concentration, impaired sleep and appetite. She denies any suicidal or homicidal ideation. Denies any psychotic symptoms manic symptoms or severely anxious symptoms. When I asked her why she came into the hospital to get help, she says "I just couldn't do it anymore ", so that she was getting sick and vomiting on a daily basis. Of note, her labs on admission were consistent with severe chronic alcohol use including macrocytosis, elevated INR, increased AST and ALT in a chronic alcohol use pattern, increased alkaline phosphatase. Past psychiatric history: Patient largely denies any previous psychiatric treatment or diagnoses. No psychiatric hospitalizations, suicide attempts, history of violence, medications. She denies previous use of alcohol use disorder pharmacotherapy. Denies any formal alcohol use treatment such as AA or other outpatient or inpatient treatments. Past medical history: right sided breast cancer, status post mastectomy, COPD, GERD, IBS Outpatient medications: No psychotropics Family history: Unknown Social history: As above Mental status exam: Overweight, adequately groomed female resting contraband hospital bed, moderate intention tremor, cooperative with interview with fair eye contact, speech was largely within normal limits, mood was "really bad ", affect was constricted, tearful, mildly labile, congruent, thought process was largely linear, content: Denies SI/HI/AVH, cognition: She is alert, she is oriented to name, place, month, did not know the exact date however knows that is coming up in 2 days, her immediate and delayed recall were mildly impaired her insight and judgment were fair Pertinent labs and studies labs on admission were consistent with severe chronic alcohol use including macrocytosis, elevated INR, increased AST and ALT in a chronic alcohol use pattern, increased alkaline phosphatase Vitals and CIWA Afebrile, pulse is been elevated in the 120s over the last 24 hours with intermittent hypertensive readings. 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 On examination she is mildly confused though not overtly delirious. Recommendations -Does not evidence any imminent risk to self or others. No indication for acute psychiatric hospitalization -Would suggest use of Ativan for detox given her liver dysfunction rather than Librium -Would suggest aggressive repletion of thiamine -Suggest social work consult for aftercare options, which should include 12-step program and outpatient or inpatient alcohol use treatment -Would defer psychotropic initiation for depressed mood at this time given the likely adjustment etiology as well as the likelihood that alcohol is playing a significant role in her depressive pathology -Once no longer in acute alcohol withdrawal might suggest initiation of acamprosate 666 mg 3 times daily. Would not recommend naltrexone at this time given the patient's liver dysfunction. -Thank you for this consult
[2016-07-10 14:59] VITALS: BP 147/78
--- NOTE | 2016-07-10 15:17 | PN- Att Addend ---
Attending Addendum Attending Brief Note Laboratory Tests 07/10/16 0626: Anion Gap 24 H, Estimated GFR > 60, BUN/Creatinine Ratio 41.4 H, Magnesium 2.2 , Total Bilirubin 8.5 H, Direct Bilirubin 7.6 H, AST 467 H, ALT 120 H, Alkaline Phosphatase 288 H, Total Protein 5.9 L, Albumin 3.2 L, CBC w Diff MAN DIFF ORDERED, RBC 3.48 L, MCV 102.3 H, MCH 34.5 H, RDW 15.6 H, MPV 9.2, Segmented Neutrophils 62, Band Neutrophils 9 H, Lymphocytes 18 L, Monocytes 11 H, Hypochromic-Microcytic 1+, Anisocytosis 1+, Macrocytic Cells 3+, Target Cells FEW, Stomatocytes FEW, PUBS MCHC 33.7 07/09/161912: PT 13.2 H, INR 1.26 H Microbiology 07/10 044 STOOL: Clostridium difficile Toxin A & B - COMP Vital Signs Date Time Temp Pulse Resp B/P B/P Pulse O2 O2 Flow FiO2 Mean Ox Delivery Rate 07/10 1459 97.7 120 20 147/78 95 Nasal 1.0L Cannula 07/10 0800 Nasal 1.0L Cannula 07/10 0717 98.3 124 20 140/66 94 Nasal 2.0L Cannula 07/10 0600 98.3 124 20 140/66 07/10 0200 99.7 125 24 140/80 07/10 0200 99.7 125 24 140/80 93 Nasal 1.0L Cannula 07/10 0000 93 Nasal 1.0L Cannula 07/09 2242 97.8 124 18 120/80 94 Nasal 2.0L Cannula 07/09 2122 Nasal 2.0L Cannula 07/09 1915 98.5 124 18 119/81 94 Nasal 2.0L Cannula 07/09 1855 Nasal 2.0L Cannula 07/09 1835 98.4 125 18 114/64 95 Nasal 2.0L Cannula 07/09 1819 122 16 07/09 1717 98.6 124 17 168/84 93 Room Air 07/09 1658 98.8 122 18 172/139 Patient seen and examined at bedside. Discussed with patient the care plan. Patient admitted with alcohol intoxication with alcohol level of 481. Patient has been drinking vodka one bottle a day for the last 3-4 weeks since being laid off. Patient was admitted with alcoholic hepatitis and alcoholic intoxication at admission. Hypertension today is low at 3.3 we will replace that. Her total bili is down to 8.5 from 9.2 yesterday. Her LFTs are also improving . We calculated her discriminant factor and it came out to be 19.3 which is not high enough to require steroids. We will continue to monitor her platelets as well as white count as well as LFTs closely.
--- NOTE | 2016-07-10 15:24 | ULTRASOUND REPORT ---
EXAMINATION: US ABDOMEN LIMITED CLINICAL INFORMATION: Lethargy, jaundice. Assess for cirrhosis and ascites. COMPARISON: Multiple priors, most recent CT abdomen/pelvis dated 12/17/2015. TECHNIQUE: Real-time imaging of the right upper quadrant abdominal viscera. FINDINGS: PANCREAS: Not well visualized. LIVER: The liver is enlarged and diffusely hyperechoic, consistent with fatty infiltration as seen on the prior examinations. No definite focal lesion or intrahepatic biliary ductal dilatation is identified. GALLBLADDER: Poorly visualized and contracted. There are multiple gallbladder stones. There is no definite gallbladder wall thickening or pericholecystic free fluid. COMMON BILE DUCT: Normal in caliber measuring 0.3 cm in diameter. RIGHT KIDNEY: Normal. No hydronephrosis. No renal calculi or focal parenchymal lesions. The kidney measures 13.5 cm in maximum dimension. FREE FLUID: Free fluid is noted within the right upper quadrant. IMPRESSION: 1. Free fluid within the right upper quadrant. 2. Diffusely enlarged and hyperechoic liver, consistent with fatty infiltration as seen on the prior examinations. 3. Poorly visualized gallbladder with multiple stones. No definite wall thickening or pericholecystic free fluid. No common bile duct dilatation. 4. Poor visualization of the pancreas.
[2016-07-10 16:00] VITALS: BP 147/78
[2016-07-11 01:13] VITALS: BP 130/90
[2016-07-11 05:05] VITALS: BP 166/80
[2016-07-11 08:00] LABS: MEAN CORPUSCULAR HGB 34.5 PG (27.0-31.0); MEAN CORPUSCULAR HGB CONC 33.7 G/DL (33.0-37.0); MEAN CORPUSCULAR VOLUME 102.6 FL (81.0-99.0); MEAN PLATELET VOLUME 9.2 FL (7.4-10.4); RBC DISTRIBUTION WIDTH 16.3 % (11.5-14.5); RED BLOOD CELL CT 3.61 /CUMM (4.20-5.40); WHITE BLOOD CELL COUNT 3.9 /CUMM (4.8-10.8)
[2016-07-11 10:09] LABS: PLATELET COUNT 58 /CUMM (130-400)
[2016-07-11 11:00] VITALS: BP 160/94
--- NOTE | 2016-07-11 13:58 | PN- Att Addend ---
Attending MD Review Statement Attending Statement Attending MD Statement: examined this patient, discuss w/resident/PA/ORDER PACKER OR PACKAGER, agreed w/resident/PA/ORDER PACKER OR PACKAGER, reviewed EMR data (avail), discussed w/nursing Attending Assessment/Plan: Laboratory Tests 07/11/16 0622: Anion Gap 20 H, Estimated GFR > 60, BUN/Creatinine Ratio 24.0, Phosphorus 0.6 * L, Total Bilirubin 10.1 H, Direct Bilirubin 9.0 H, AST 475 H, ALT 123 H, Alkaline Phosphatase 313 H, Total Protein 6.2 L, Albumin 3.4 L, CBC w Diff MAN DIFF ORDERED, RBC 3.61 L, MCV 102.6 H, MCH 34.5 H, RDW 16.3 H, MPV 9.2, Segmented Neutrophils 67, Band Neutrophils 8 H, Lymphocytes 12 L, Monocytes 9, Eosinophils 2, Basophils 1, Metamyelocytes 1, Anisocytosis 2+, Macrocytic Cells 3+, Stomatocytes 2+, PUBS MCHC 33.7, Hepatitis A IgM Ab NONREACTIVE, Hep Bs Antigen NONREACTIVE, Hep B Core IgM Ab Conf NONREACTIVE, Hepatitis C Antibody NONREACTIVE Vital Signs Date Time Temp Pulse Resp B/P B/P Pulse O2 O2 Flow FiO2 Mean Ox Delivery Rate 07/11 1100 98.1 109 18 160/94 95 Nasal 1.0L Cannula 07/11 0800 Nasal 1.0L Cannula 07/11 0531 95 Nasal 1.0L Cannula 07/11 0505 99.7 110 20 166/80 97 Nasal 2.0L Cannula 07/11 0113 99.3 117 18 130/90 94 Room Air 07/10 1600 97.7 120 20 147/78 07/10 1600 95 Nasal 1.0L Cannula 07/10 1459 97.7 120 20 147/78 95 Nasal 1.0L Cannula Patient seen and examined at bedside. Discussed with patient the care plan. Patient admitted with alcohol intoxication with alcohol level of 481. Patient has been drinking vodka one bottle a day for the last 3-4 weeks since being laid off. Patient was admitted with alcoholic hepatitis and alcoholic intoxication at admission. LFTs are stable but slightly worse than yesterday and total bili is up to 10.1 from 8.5 yesterday. Her potassium today is low at 2.8 and she got 80 mg by mouth potassium. Patient continues to have some diarrhea likely secondary to alcoholic gastritis. We checked her phosphorus level today and it came down very low at 0.6 so we have replaced it IV and also we're giving her by mouth supplementation. Her CIWA scores are ranging from 0-10 and we will start her on Ativan 1 mg every 8 hours scheduled dose along with when necessary dose of Ativan. Her acute hepatitis serology is negative and we will continue to follow -up on her platelets as well as INR to make sure her discriminant function is not rising.
[2016-07-11 15:06] VITALS: BP 142/82
--- NOTE | 2016-07-11 15:53 | PN- Housestaff ---
Subjective Follow-up For: Alcohol withdrawl Alcholic liver disease Subjective: I saw and examined the patient today morning She is feeling very weak, reports burning pain with urination. Back pain with prolonged sitting. Reports lack of sleep, hard of breathing. She is having loose watery bowel movements with low grade fever. Review of Systems Constitutional: Reports: see HPI. Comments: ROS negative except the above Objective Last 24 Hrs of Vital Signs/I&O Vital Signs Date Time Temp Pulse Resp B/P B/P Pulse O2 O2 Flow FiO2 Mean Ox Delivery Rate 07/11 1506 98.6 112 20 142/82 95 Nasal 1.0L Cannula 07/11 1100 98.1 109 18 160/94 95 Nasal 1.0L Cannula 07/11 0800 Nasal 1.0L Cannula 07/11 0531 95 Nasal 1.0L Cannula 07/11 0505 99.7 110 20 166/80 97 Nasal 2.0L Cannula 07/11 0113 99.3 117 18 130/90 94 Room Air 07/10 1600 97.7 120 20 147/78 07/10 1600 95 Nasal 1.0L Cannula Intake & Output 07/11 1600 07/11 0800 07/11 0000 Intake Total 1600 700 100 Output Total Balance 1600 700 100 Intake, IV 700 700 100 Intake, Oral 900 Number 7 2 Bowel Movements Physical Exam General Appearance: Alert, Oriented X3, Cooperative, Mild Distress Skin: No Rashes, No Breakdown HEENT: Atraumatic, PERRLA, EOMI Neck: Supple Cardiovascular: Normal S1, Normal S2 Lungs: Clear to Auscultation, Normal Air Movement Abdomen: Normal Bowel Sounds, Soft, No Tenderness Neurological: Strength at 5/5 X4 Ext, Normal Tone Extremities: No Clubbing, No Cyanosis Current Medications: Current Medications Sig/Connor Start time Last Medication Dose Route Stop Time Status Admin Albuterol Sulfate 3 ML Q4-PRN PRN 07/09 2130 AC 07/11 INH 0516 Chlordiazepoxide HCl 25 MG Q6 07/09 1803 DC 07/10 PO 1232 Folic Acid 1 MG DAILY 07/09 1433 AC 07/11 PO 0939 Lorazepam 0.5 MG ONCE 07/14 0000 DC PO 07/14 0001 Lorazepam 0.5 MG Q6H 07/13 0000 DC PO 07/13 1801 Lorazepam 0.5 MG ONCE ONE 07/12 1800 DC PO 07/12 1801 Lorazepam 1 MG Q6H 07/12 0000 DC PO 07/12 1201 Lorazepam 1 MG Q8 07/11 1400 AC 07/11 PO 1346 Lorazepam 1 MG ONE ONE 07/11 0930 DC 07/11 PO 07/11 0931 0938 Lorazepam 1.5 MG Q12H 07/11 0600 DC PO 07/11 1801 Lorazepam 1 MG Q12H 07/11 0000 DC PO 07/11 1201 Lorazepam 0 Q1P PRN 07/09 1830 AC 07/10 IV 1508 Morphine Sulfate 2 MG Q6PRN PRN 07/10 0630 AC IV Multivitamins 1 TAB DAILY 07/09 1433 AC 07/11 PO 0939 Ondansetron HCl 4 MG ONCE ONE 07/10 1645 DC 07/10 IV 07/10 1646 1641 Phosphate 250 MG PC AND AT BEDTIME 07/11 1300 AC 07/11 PO 1447 Potassium Chloride 40 MEQ ONCE ONE 07/11 1100 DC 07/11 PO 07/11 1101 1125 Potassium Chloride 40 MEQ ONCE ONE 07/11 1000 DC 07/11 PO 07/11 1001 1030 Potassium Chloride 40 MEQ ONCE ONE 07/11 0930 CAN PO 07/11 1030 Potassium Chloride 40 MEQ ONCE ONE 07/10 1745 DC 07/10 PO 07/10 1746 1839 Potassium Chloride 40 MEQ ONCE ONE 07/10 1715 CAN PO 07/10 1716 Sodium Chloride 1,000 ML Q10H 07/10 0615 AC 07/11 IV 1345 Sodium Phosphate 15 mMol ONE ONE 07/11 1130 AC Sodium Chloride 250 ML IV 07/11 1600 Thiamine HCl 100 MG DAILY 07/09 1433 AC 07/11 PO 0939 Last 24 Hrs of Lab/Anand Results Last 24 Hrs of Labs/Mics: Laboratory Tests 07/11/16 1500: Potassium Pending, PT Pending, INR Pending 07/11/16 0622: Anion Gap 20 H, Estimated GFR > 60, BUN/Creatinine Ratio 24.0, Phosphorus 0.6 * L, Total Bilirubin 10.1 H, Direct Bilirubin 9.0 H, AST 475 H, ALT 123 H, Alkaline Phosphatase 313 H, Total Protein 6.2 L, Albumin 3.4 L, CBC w Diff MAN DIFF ORDERED, RBC 3.61 L, MCV 102.6 H, MCH 34.5 H, RDW 16.3 H, MPV 9.2, Segmented Neutrophils 67, Band Neutrophils 8 H, Lymphocytes 12 L, Monocytes 9, Eosinophils 2, Basophils 1, Metamyelocytes 1, Anisocytosis 2+, Macrocytic Cells 3+, Stomatocytes 2+, PUBS MCHC 33.7, Hepatitis A IgM Ab NONREACTIVE, Hep Bs Antigen NONREACTIVE, Hep B Core IgM Ab Conf NONREACTIVE, Hepatitis C Antibody NONREACTIVE Microbiology 07/11 928 STOOL: Stool Culture - COLB Assessment/Plan Assessment: 55-year-old female with past medical history of right sided breast cancer, status post mastectomy, COPD, GERD, was brought in by her sister for alcohol detoxification. Patient is currently being admitted in the general medical floor for for any issues: # Alcohol withdrawal, secondary to alcohol dependence, undergoing detoxification Patient seems to have chronic alcohol-related problems, has recently started drinking heavily, more than usual, but has the will to cut down on alcohol. The first 24 hours the most susceptible for seizures during withdrawal, and the first surgery 2 hours are the ones for delirium tremens. * Monitor vitals, CIWA parameters regularly * Continue thiamine, folic acid, and multivitamins, increased duration to daily today from 3 doses per Psych consult. * Ativan 1mg TID with Ativan PRN doses. No Librium in the setting of abnormal LFTs * After her detox is over, she might be started on acamprosate 666 mg 3 times daily per Psychiatry consult. * Social works consult has been placed, will follow. * Appreciate Psychiatry services consult. Refeeding syndrome Patient has a K of 2.8 with phosphorous of 0.6 today after feeding. Reports intense tiredness. * She was aggressively repleted with oral KDur 40mEq X3, Na Phos IV X2, Neutraphos powder before meals. * Repeat BEP, Phos and Mag tomorrow.l Clinical depression/Major Depressive Disorder, no SI/HI Patient has clear signs of depression, although is not suicidal or homicidal at this point, and has just started alcohol detoxification, but as she improves, psychiatry consultation for depression seems to be appropriate. Not starting any psychotropics per Psychiatric consult currently. Will reassess as she is detoxified. Alcoholic liver liver disease, hepatitis Patient's Total bilirubin was 9.2, AST 580, ALT 149, alkaline phosphatase 292, INR of 1.26 on admission. Her discriminant factor was calculated with attending today, which is 19.3, so does not have a poor prognosis, and will not need steroids. * Total bilirubin is increasing daily - today 10.0 * Usg of liver suggestive of hepatic steatosis with free fluid in the RUQ. * Olvineys discrimination score is 10 with repeat PT Hypokalemia K was 2.8 today, repleted with 40meq twice - repeat at 3pm is 3.2 (repleted again with K -40mEq) Will recheck BEP tomorrow. IBS Patient's complaint is much reduced today. Following GI consultation. She had an episode of loose watery bowel movemnt today, possibly alcoholic gastritis. #Diet: Regular diet #DVT prophylaxis: ALPS #CODE STATUS is full code Problem List: 1. Bronchitis 2. Abdominal pain 3. Diarrhea 4. Alcohol dependence with withdrawal Pain Ratin Pain Location: n/a Pain Goal: Pain 4 or less Pain Plan: Morphine sulphate IV NO TYLENOL Tomorrow's Labs & Rationales: LFT's - to monitor transaminitis bep - to monitor cr mag and phos - refeeding syndrome
[2016-07-11 16:00] VITALS: BP 142/82
[2016-07-11 16:46] LABS: PT 11.9 SEC (9.4-12.5)
--- NOTE | 2016-07-11 22:32 | RADIOLOGY REPORT ---
EXAMINATION: XR CHEST PORTABLE CLINICAL INFORMATION: Shortness of breath and crackles. Pulmonary edema. COMPARISON: Chest radiographs dated 12/05/2008. TECHNIQUE: Portable frontal view of the chest was obtained. FINDINGS: Mild bibasilar atelectasis. No focal airspace consolidation. No pleural effusion or pneumothorax. No cardiomediastinal silhouette enlargement. No acute osseous abnormality. Surgical clips redemonstrated within the right axilla. IMPRESSION: Mild bibasilar atelectasis.
[2016-07-11 23:29] VITALS: BP 140/81
[2016-07-12 07:46] VITALS: BP 142/85
[2016-07-12 09:01] LABS: HEMATOCRIT 39.4 % (37-47); MEAN CORPUSCULAR HGB 34.4 PG (27.0-31.0); MEAN CORPUSCULAR HGB CONC 33.2 G/DL (33.0-37.0); MEAN CORPUSCULAR VOLUME 103.5 FL (81.0-99.0); MEAN PLATELET VOLUME 9.6 FL (7.4-10.4); PLATELET COUNT 57 /CUMM (130-400); RBC DISTRIBUTION WIDTH 15.9 % (11.5-14.5); RED BLOOD CELL CT 3.81 /CUMM (4.20-5.40); WHITE BLOOD CELL COUNT 5.1 /CUMM (4.8-10.8)
--- NOTE | 2016-07-12 09:14 | PN- Housestaff ---
See Addendum Subjective Follow-up For: Alcohol withdrawal Alcoholic liver disease Complaints: complains of weakness and diarrhea Review of Systems Constitutional: Reports: see HPI. Gastrointestinal: Reports: bloating, diarrhea. Objective Last 24 Hrs of Vital Signs/I&O Vital Signs Date Time Temp Pulse Resp B/P B/P Pulse O2 O2 Flow FiO2 Mean Ox Delivery Rate 07/12 0822 104 07/12 0746 99.0 117 20 142/85 96 Nasal 1.0L Cannula 07/12 0743 96 Nasal 1.0L Cannula 07/12 0740 94 Nasal 1.0L Cannula 07/12 0000 Nasal 1.0L Cannula 07/11 2329 98.5 119 20 140/81 93 Nasal 1.0L Cannula 07/11 2125 98 Nasal 1.0L Cannula 07/11 1612 96 Nasal 1.0L Cannula 07/11 1600 98.6 112 20 142/82 07/11 1600 96 Nasal 1.0L Cannula 07/11 1506 98.6 112 20 142/82 95 Nasal 1.0L Cannula Intake & Output 07/12 1600 07/12 0800 07/12 0000 Intake Total 480 1290 Output Total 600 Balance 480 690 Intake, IV 450 Intake, Oral 480 840 Number 1 1 2 Bowel Movements Output, Urine 600 Physical Exam General Appearance: Alert, Oriented X3, Cooperative, No Acute Distress Skin: jaundice Neck: Supple, No JVD Cardiovascular: Regular Rate, Normal S1, Normal S2 Lungs: Clear to Auscultation Abdomen: diminished bowel sounds, distended Extremities: No Edema, Normal Pulses Current Medications: Current Medications Sig/Connor Start time Last Medication Dose Route Stop Time Status Admin Albuterol Sulfate 3 ML Q4-PRN PRN 07/09 2130 AC 07/12 INH 0742 Folic Acid 1 MG DAILY 07/09 1433 AC 07/12 PO 0839 Lorazepam 0.5 MG ONCE 07/14 0000 DC PO 07/14 0001 Lorazepam 0.5 MG Q6H 07/13 0000 DC PO 07/13 1801 Lorazepam 0.5 MG ONCE ONE 07/12 1800 DC PO 07/12 1801 Lorazepam 1 MG Q6H 07/12 0000 DC PO 07/12 1201 Lorazepam 1 MG Q8 07/11 1400 AC 07/12 PO 0551 Lorazepam 0 Q1P PRN 07/09 1830 AC 05/27 IV 1508 Morphine Sulfate 2 MG Q6PRN PRN 07/10 0630 IV Multivitamins 1 TAB DAILY 07/09 1433 AC 07/12 PO 0839 Phosphate 250 MG PC AND AT BEDTIME 07/11 1300 AC 07/12 PO 0839 Potassium Chloride 40 MEQ BID 07/12 1000 AC 07/12 PO 07/13 2201 0919 Potassium Chloride 40 MEQ Q10H 07/12 0945 AC 07/12 Sodium Chloride 1,000 ML IV 1025 Potassium Chloride 40 MEQ ONCE ONE 07/11 1915 DC 07/11 PO 07/11 191 2056 Potassium Phosphate 15 mMol ONE ONE 07/11 1600 CAN Dextrose/Water 250 ML IV 07/11 2002 Potassium Phosphate 15 mMol ONE ONE 07/11 1600 CAN Dextrose/Water 250 ML IV 07/11 2002 Sodium Chloride 1,000 ML Q10H 07/10 0615 DC 07/12 IV 0559 Sodium Phosphate 15 mMol ONE 07/11 2000 CAN Dextrose/Water 250 ML IV 07/11 2359 Sodium Phosphate 15 mMol ONE ONE 07/11 2000 DC 07/11 Dextrose/Water 250 ML IV 07/12 0003 2056 Sodium Phosphate 15 mMol ONE ONE 07/11 1130 DC 07/11 Sodium Chloride 250 ML IV 07/11 1600 1633 Thiamine HCl 100 MG DAILY 07/09 1433 07/12 PO 0839 Last 24 Hrs of Lab/Anand Results Last 24 Hrs of Labs/Mics: Laboratory Tests 07/12/16 0605: Anion Gap 14, Estimated GFR > 60, BUN/Creatinine Ratio 15.0, Phosphorus 1.2 L, Magnesium 1.5 L, Total Bilirubin 11.3 H, Direct Bilirubin 9.8 H, AST 384 H, ALT 122 H, Alkaline Phosphatase 301 H, Total Protein 5.9 L, Albumin 3.1 L, CBC w Diff MAN DIFF ORDERED, RBC 3.81 L, MCV 103.5 H, MCH 34.4 H, RDW 15.9 H , MPV 9.6, Segmented Neutrophils 60, Band Neutrophils 5, Lymphocytes 21, Monocytes 11 H, Eosinophils 3, Platelet Estimate DECREASED, Anisocytosis 1+, Macrocytic Cells 1+, Stomatocytes 2+, PUBS MCHC 33.2 07/11/16 1830: Urinalysis MOD H, Urine Color YEL, Urine Clarity CLEAR, Urine pH 6.0, Ur Specific [place] 1.020, Urine Protein 30 H, Urine Ketones 40 H, Urine Nitrite NEG, Urine Bilirubin NEG@ICTO, Urine Urobilinogen 0.2, Ur Leukocyte Esterase NEG , Ur Microscopic SEDIMENT EXAMINED, Urine Bacteria MANY H, Urine Hemoglobin NEG , Urine Glucose NEG 07/11/16 1500: PT 11.9, INR 1.13 Microbiology 07/12 1050 STOOL: Stool Culture - RECD Orders CIWA Score (last 24 hrs): 0-7 Lines/Diet/Fluids Lines: peripheral lines Assessment/Plan Assessment: 55-year-old female with past medical history of right sided breast cancer, status post mastectomy, COPD, GERD, was brought in by her sister for alcohol detoxification. Patient is currently being admitted in the general medical floor: * Alcohol withdrawal, secondary to alcohol dependence, undergoing detoxification Patient seems to have chronic alcohol-related problems, has recently started drinking heavily, more than usual, but has the will to cut down on alcohol. * CIWA is improving * Continue thiamine, folic acid, and multivitamins * Ativan 1mg TID with Ativan PRN doses. No Librium in the setting of abnormal LFTs * After her detox is over, she might be started on acamprosate 666 mg 3 times daily per Psychiatry consult. * Social works consult has been placed, will follow. * Appreciate Psychiatry services consult. Refeeding syndrome with hypokalemia, hypophosphatemia and hypomagnesemia Reports intense tiredness. Persistently low potassium, phos and Mag * She was aggressively repleted orally and intravenously * Will closely monitor * Continue Neutraphos powder before meals. * Repeat BEP today, Phos and Mag tomorrow. Thrombocytopenia * Platelet count trending down; 57 today from 84 at admission * Likely due to alcohol * No active bleeding * Will continue to monitor Clinical depression/Major Depressive Disorder, no SI/HI * Not starting any psychotropics per Psychiatric consult currently. They will reassess once she is detoxified. Alcoholic liver disease, hepatitis * Patient's Total bilirubin is rising, 11.3 today but AST, ALT, alkaline phosphatase are starting to trend down. * Usg of liver suggestive of hepatic steatosis with free fluid in the RUQ. IBS * Continues to have diarrhea; stool culture sent, if negative, start imodium per GI * C.diff neg #Diet: Regular diet #DVT prophylaxis: ALPS #CODE STATUS is full code Problem List: 1. Alcohol dependence with withdrawal 2. Alcoholic hepatitis 3. IBS (irritable bowel syndrome) Pain Ratin Pain Location: n/a Pain Goal: n/a Pain Plan: n/a Tomorrow's Labs & Rationales: CBC, BEP, LFT, INR, MG, Phos
--- NOTE | 2016-07-12 09:53 | NUR ---
NURSING NOTE: K+ 2.8 THIS AM, REPORTED TO UNIQUE POLANCO MD; KCL 40MEQ PACKETS MIXED WITH OJ AND CARISSA COSMO PER PT REQUEST, PT DRANK IT ALL, AWAITING IVF WITH KCL FROM PHARMACY AND WILL HANG, PT AWAKE, FORGETFUL AT TIMES, BED ALARM IN USE, FAMILY AT BEDSIDE.
--- NOTE | 2016-07-12 10:18 | NUR ---
NURSING NOTE: BLACHABLE REDNESS NOTED TO BOTTOM, SIZEWISE MATTRESS ORDERED BY MOTOR GRADER OPERATOR. BARRIER CREAM APPLIED. PT HAS BEEN INCONTINENT OF URINE AND STOOL SINCE ADMISSION PER PT. PT STATES "SOMETIMES I KNOW WHEN I HAVE TO GO." PT ENCOURAGED TO CALL FOR BEDPAN OT BSC, PT REFUSING TO GET OOB, STATES "I DONT THINK I CAN." HUNTING SALES LEADER AWARE. BED ALARM IN PLACE, PT ENCORAGED TO REPOSITION SELF IN BED.
--- NOTE | 2016-07-12 11:12 | PN- Gastroenterology ---
Assessment/Plan Assessment/Recommendations: Assessment: Ms. Villatoro is a 55 year old female with D-IBS, GERD and etoh abuse admitted a few days ago with etoh hepatitis. Her LFTs have been stable and her INR was not significantly elevated on admission and I therefore feel she should continue to be followed off of steroids. She continues to complain of diarrhea which has been worked up previously and which I feel is secondary to IBS as she has had a negative colonoscopy for this. If her stool studies are negative for infectious causes of diarrhea would therefore recommend restarting imodium which is what she takes for diarrhea at home. Recommendations: 1. Follow daily LFTs and INR 2. Continue ativan as needed for etoh withdrawal symptoms 3. Monitor off of steroids 4. Social service consult to consider continued inpt vs outpt etoh detox/rehab 5. Diet as tolerated 6. Follow stool studies and if they are negative for infectious causes of diarrhea would start imodium as needed. I will continue to follow this patient and make further recommendations based on her clinical course and results of repeat blood work and stool testing. Subjective Subjective: Pt continues to complain of some loose stool. Has been getting ativan for etoh withdrawal symptoms. Denies abd pain, vomiting or bloody diarrhea. Review of Systems Constitutional: Reports: malaise, weakness. EENTM: Denies: no symptoms. Cardiovascular: Denies: no symptoms. Respiratory: Denies: no symptoms. Gastrointestinal: Reports: see HPI. Skin: Reports: jaundice. Neurological/Psychological: Denies: confusion, tremors. Objective Vital Signs and I&Os Vital Signs Date Time Temp Pulse Resp B/P B/P Pulse O2 O2 Flow FiO2 Mean Ox Delivery Rate 07/12 0822 104 07/12 0746 99.0 117 20 142/85 96 Nasal 1.0L Cannula 07/12 0743 96 Nasal 1.0L Cannula 07/12 0740 94 Nasal 1.0L Cannula 07/12 0000 Nasal 1.0L Cannula 07/11 2329 98.5 119 20 140/81 93 Nasal 1.0L Cannula 07/11 2125 98 Nasal 1.0L Cannula 07/11 1612 96 Nasal 1.0L Cannula 07/11 1600 98.6 112 20 142/82 07/11 1600 96 Nasal 1.0L Cannula 07/11 1506 98.6 112 20 142/82 95 Nasal 1.0L Cannula Intake & Output 07/12 1600 07/12 0400 07/11 1600 07/11 0400 07/10 1600 07/10 0400 Intake Total 480 1290 2300 100 2150 1850 Output Total 600 400 Balance 011 613 1515 100 1750 1850 Intake, IV 450 9834 712 3570 1500 Intake, Oral 480 840 900 450 350 Number 2 2 8 1 107 2 Bowel Movements Output, Urine 600 400 Patient 165 lb Weight Weight Reported by Patient Measurement Method Physical Exam General Appearance: well developed/nourished, no apparent distress, comfortable Head: atraumatic, normal appearance Neck: normal inspection, supple, full range of motion Respiratory: normal breath sounds, chest non-tender Cardiovascular: regular rate/rhythm Abdomen: normal bowel sounds, soft, non-tender Back: normal inspection, normal range of motion Skin: jaundice Current Medications: Current Medications Sig/Connor Start time Last Medication Dose Route Stop Time Status Admin Albuterol Sulfate 3 ML Q4-PRN PRN 07/09 2130 AC 07/12 INH 0742 Folic Acid 1 MG DAILY 07/09 1433 AC 07/12 PO 0839 Lorazepam 0.5 MG ONCE 07/14 0000 DC PO 07/14 0001 Lorazepam 0.5 MG Q6H 07/13 0000 DC PO 07/13 1801 Lorazepam 0.5 MG ONCE ONE 07/12 1800 DC PO 07/12 1801 Lorazepam 1 MG Q6H 07/12 0000 DC PO 07/12 1201 Lorazepam 1 MG Q8 07/11 1400 AC 07/12 PO 0551 Lorazepam 0 Q1P PRN 07/09 1830 AC 07/10 IV 1508 Morphine Sulfate 2 MG Q6PRN PRN 07/10 0630 AC IV Multivitamins 1 TAB DAILY 07/09 1433 AC 07/12 PO 0839 Phosphate 250 MG PC AND AT BEDTIME 07/11 1300 AC 07/12 PO 0839 Potassium Chloride 40 MEQ BID 07/12 1000 AC 07/12 PO 07/13 2201 0919 Potassium Chloride 40 MEQ Q10H 07/12 0945 AC 07/12 Sodium Chloride 1,000 ML IV 1025 Potassium Chloride 40 MEQ ONCE ONE 07/11 1915 DC 07/11 PO 07/11 1916 2056 Potassium Phosphate 15 mMol ONE ONE 07/11 1600 CAN Dextrose/Water 250 ML IV 07/11 2002 Potassium Phosphate 15 mMol ONE ONE 07/11 1600 CAN Dextrose/Water 250 ML IV 07/11 2002 Sodium Chloride 1,000 ML Q10H 07/10 0615 DC 07/12 IV 0559 Sodium Phosphate 15 mMol ONE 07/12 1999 CAN Dextrose/Water 250 ML IV 07/11 235 Sodium Phosphate 15 mMol ONE ONE 07/12 1999 DC 07/11 Dextrose/Water 250 ML IV 07/12 0003 2056 Sodium Phosphate 15 mMol ONE ONE 07/11 1130 DC 07/11 Sodium Chloride 250 ML IV 07/11 1600 1633 Thiamine HCl 100 MG DAILY 07/09 1433 AC 07/12 PO 0839 Results Pertinent Lab Results: Laboratory Tests 07/12 07/11 0605 1830 Chemistry Sodium (137 - 145 mmol/L) 139 Potassium (3.5 - 5.1 mmol/L) 2.8 *L Chloride (98 - 107 mmol/L) 100 Carbon Dioxide (22 - 30 mmol/L) 25 Anion Gap (5 - 16) 14 BUN (7 - 17 mg/dL) 6 L Creatinine (0.5 - 1.0 mg/dL) 0.4 L Estimated GFR (>60 ml/min) > 60 BUN/Creatinine Ratio (7 - 25 %) 15.0 Phosphorus (2.5 - 4.5 mg/dL) 1.2 L Magnesium (1.6 - 2.3 mg/dL) 1.5 L Total Bilirubin (0.2 - 1.3 mg/dL) 11.3 H Direct Bilirubin (< 0.4 mg/dL) 9.8 H AST (14 - 36 U/L) 384 H ALT (9 - 52 U/L) 122 H Alkaline Phosphatase (<127 U/L) 301 H Total Protein (6.3 - 8.2 g/dL) 5.9 L Albumin (3.5 - 5.0 g/dL) 3.1 L Hematology CBC w Diff MAN DIFF ORDERED WBC (4.8 - 10.8 /CUMM) 5.1 RBC (4.20 - 5.40 /CUMM) 3.81 L Hgb (12.0 - 16.0 G/DL) 13.1 Hct (37 - 47 %) 39.4 MCV (81.0 - 99.0 FL) 103.5 H MCH (27.0 - 31.0 PG) 34.4 H RDW (11.5 - 14.5 %) 15.9 H Plt Count (130 - 400 /CUMM) 57 L MPV (7.4 - 10.4 FL) 9.6 Segmented Neutrophils (42.2 - 75.2 %) 60 Band Neutrophils (0.0 - 5.0 %) 5 Lymphocytes (20.5 - 51.1 %) 21 Monocytes (1.7 - 9.3 %) 11 H Eosinophils (0 - 5.0 %) 3 Platelet Estimate (ADEQUATE) DECREASED Anisocytosis 1+ Macrocytic Cells 1+ Stomatocytes 2+ PUBS MCHC (33.0 - 37.0 G/DL) 33.2 Urines Urinalysis MOD H Urine Color (YEL,AMB,STR) YEL Urine Clarity (CLEAR) CLEAR Urine pH (5.0 - 8.0) 6.0 Ur Specific [place] (1.001 - 1.035) 1.020 Urine Protein (NEG,<30 MG/DL) 30 H Urine Ketones (NEG) 40 H Urine Nitrite (NEG) NEG Urine Bilirubin (NEG) NEG@ICTO Urine Urobilinogen (0.1 - 1.0 EU/dl) 0.2 Ur Leukocyte Esterase (NEG) NEG Ur Microscopic SEDIMENT EXAMINED Urine Bacteria (NEG/NONE) MANY H Urine Hemoglobin (NEG) NEG Urine Glucose (N MG/DL) NEG 07/11 07/11 1500 0622 Chemistry Sodium (137 - 145 mmol/L) 138 Potassium (3.5 - 5.1 mmol/L) 3.2 L 2.8 *L Chloride (98 - 107 mmol/L) 98 Carbon Dioxide (22 - 30 mmol/L) 20 L Anion Gap (5 - 16) 20 H BUN (7 - 17 mg/dL) 12 Creatinine (0.5 - 1.0 mg/dL) 0.5 Estimated GFR (>60 ml/min) > 60 BUN/Creatinine Ratio (7 - 25 %) 24.0 Phosphorus (2.5 - 4.5 mg/dL) 0.6 *L Total Bilirubin (0.2 - 1.3 mg/dL) 10.1 H Direct Bilirubin (< 0.4 mg/dL) 9.0 H AST (14 - 36 U/L) 475 H ALT (9 - 52 U/L) 123 H Alkaline Phosphatase (<127 U/L) 313 H Total Protein (6.3 - 8.2 g/dL) 6.2 L Albumin (3.5 - 5.0 g/dL) 3.4 L Coagulation PT (9.4 - 12.5 SEC) 11.9 INR (0.90 - 1.19) 1.13 Hematology CBC w Diff MAN DIFF ORDERED WBC (4.8 - 10.8 /CUMM) 3.9 L RBC (4.20 - 5.40 /CUMM) 3.61 L Hgb (12.0 - 16.0 G/DL) 12.5 Hct (37 - 47 %) 37.0 MCV (81.0 - 99.0 FL) 102.6 H MCH (27.0 - 31.0 PG) 34.5 H RDW (11.5 - 14.5 %) 16.3 H Plt Count (130 - 400 /CUMM) 58 L MPV (7.4 - 10.4 FL) 9.2 Segmented Neutrophils (42.2 - 75.2 %) 67 Band Neutrophils (0.0 - 5.0 %) 8 H Lymphocytes (20.5 - 51.1 %) 12 L Monocytes (1.7 - 9.3 %) 9 Eosinophils (0 - 5.0 %) 2 Basophils (0.0 - 2.0 %) 1 Metamyelocytes (0.0 - 1.0 %) 1 Anisocytosis 2+ Macrocytic Cells 3+ Stomatocytes 2+ PUBS MCHC (33.0 - 37.0 G/DL) 33.7 Serology Hepatitis A IgM Ab (NONREACTIVE) NONREACTIVE Hep Bs Antigen (NONREACTIVE) NONREACTIVE Hep B Core IgM Ab Conf (NONREACTIVE) NONREACTIVE Hepatitis C Antibody (NONREACTIVE) NONREACTIVE 07/10 07/09 7550 2225 Chemistry Sodium (137 - 145 mmol/L) 134 L Potassium (3.5 - 5.1 mmol/L) 3.3 L Chloride (98 - 107 mmol/L) 94 L Carbon Dioxide (22 - 30 mmol/L) 16 L Anion Gap (5 - 16) 24 H BUN (7 - 17 mg/dL) 29 H Creatinine (0.5 - 1.0 mg/dL) 0.7 Estimated GFR (>60 ml/min) > 60 BUN/Creatinine Ratio (7 - 25 %) 41.4 H Magnesium (1.6 - 2.3 mg/dL) 2.2 Total Bilirubin (0.2 - 1.3 mg/dL) 8.5 H Direct Bilirubin (< 0.4 mg/dL) 7.6 H AST (14 - 36 U/L) 467 H ALT (9 - 52 U/L) 120 H Alkaline Phosphatase (<127 U/L) 288 H Total Protein (6.3 - 8.2 g/dL) 5.9 L Albumin (3.5 - 5.0 g/dL) 3.2 L Coagulation PT (9.4 - 12.5 SEC) 13.2 H INR (0.90 - 1.19) 1.26 H Hematology CBC w Diff MAN DIFF ORDERED WBC (4.8 - 10.8 /CUMM) 3.9 L RBC (4.20 - 5.40 /CUMM) 3.48 L Hgb (12.0 - 16.0 G/DL) 12.0 Hct (37 - 47 %) 35.6 L MCV (81.0 - 99.0 FL) 102.3 H MCH (27.0 - 31.0 PG) 34.5 H RDW (11.5 - 14.5 %) 15.6 H Plt Count (130 - 400 /CUMM) 72 L MPV (7.4 - 10.4 FL) 9.2 Segmented Neutrophils (42.2 - 75.2 %) 62 Band Neutrophils (0.0 - 5.0 %) 9 H Lymphocytes (20.5 - 51.1 %) 18 L Monocytes (1.7 - 9.3 %) 11 H Hypochromic-Microcytic 1+ Anisocytosis 1+ Macrocytic Cells 3+ Target Cells FEW Stomatocytes FEW PUBS MCHC (33.0 - 37.0 G/DL) 33.7 07/09 07/09 1226 1202 Chemistry Sodium (137 - 145 mmol/L) 135 L Potassium (3.5 - 5.1 mmol/L) 3.8 Chloride (98 - 107 mmol/L) 91 L Carbon Dioxide (22 - 30 mmol/L) 21 L Anion Gap (5 - 16) 24 H BUN (7 - 17 mg/dL) 31 H Creatinine (0.5 - 1.0 mg/dL) 0.9 Estimated GFR (>60 ml/min) > 60 BUN/Creatinine Ratio (7 - 25 %) 34.4 H Glucose (65 - 99 mg/dL) 70 Calcium (8.4 - 10.2 mg/dL) 7.6 L Magnesium (1.6 - 2.3 mg/dL) 2.3 Total Bilirubin (0.2 - 1.3 mg/dL) 9.2 H AST (14 - 36 U/L) 580 H ALT (9 - 52 U/L) 149 H Alkaline Phosphatase (<127 U/L) 292 H Total Protein (6.3 - 8.2 g/dL) 6.9 Albumin (3.5 - 5.0 g/dL) 4.0 Globulin (1.9 - 4.2 gm/dL) 2.9 Albumin/Globulin Ratio (1.1 - 2.2 %) 1.4 Amylase (30 - 110 U/L) 34 Hematology CBC w Diff MAN DIFF ORDERED WBC (4.8 - 10.8 /CUMM) 5.9 RBC (4.20 - 5.40 /CUMM) 4.14 L Hgb (12.0 - 16.0 G/DL) 14.4 Hct (37 - 47 %) 41.8 MCV (81.0 - 99.0 FL) 101.2 H MCH (27.0 - 31.0 PG) 34.7 H RDW (11.5 - 14.5 %) 15.6 H Plt Count (130 - 400 /CUMM) 84 L MPV (7.4 - 10.4 FL) 8.6 Segmented Neutrophils (42.2 - 75.2 %) 61 Band Neutrophils (0.0 - 5.0 %) 22 H Lymphocytes (20.5 - 51.1 %) 8 L Monocytes (1.7 - 9.3 %) 9 Platelet Estimate (ADEQUATE) DECREASED Poikilocytosis 1+ Anisocytosis 1+ Macrocytic Cells 1+ Target Cells 1+ Stomatocytes 1+ PUBS MCHC (33.0 - 37.0 G/DL) 34.3 Toxicology Methadone Screen Cancelled Barbiturate Screen Cancelled Ur Phencyclidine Scrn Cancelled Amphetamines Screen Cancelled U Benzodiazepines Scrn Cancelled Urine Cocaine Screen Cancelled Urine Cannabis Screen Cancelled Serum Alcohol (<10 MG/DL) 481.0 Imaging/Other Studies: SERVICE DATE: 07/10/16- EXAM TYPE: US - US-LIMITED ABDOMEN EXAMINATION: US ABDOMEN LIMITED CLINICAL INFORMATION: Lethargy, jaundice. Assess for cirrhosis and ascites. COMPARISON: Multiple priors, most recent CT abdomen/pelvis dated 12/17/2015. TECHNIQUE: Real-time imaging of the right upper quadrant abdominal viscera. FINDINGS: PANCREAS: Not well visualized. LIVER: The liver is enlarged and diffusely hyperechoic, consistent with fatty infiltration as seen on the prior examinations. No definite focal lesion or intrahepatic biliary ductal dilatation is identified. GALLBLADDER: Poorly visualized and contracted. There are multiple gallbladder stones. There is no definite gallbladder wall thickening or pericholecystic free fluid. COMMON BILE DUCT: Normal in caliber measuring 0.3 cm in diameter. RIGHT KIDNEY: Normal. No hydronephrosis. No renal calculi or focal parenchymal lesions. The kidney measures 13.5 cm in maximum dimension. FREE FLUID: Free fluid is noted within the right upper quadrant. IMPRESSION: 1. Free fluid within the right upper quadrant. 2. Diffusely enlarged and hyperechoic liver, consistent with fatty infiltration as seen on the prior examinations. 3. Poorly visualized gallbladder with multiple stones. No definite wall thickening or pericholecystic free fluid. No common bile duct dilatation. 4. Poor visualization of the pancreas.
--- NOTE | 2016-07-12 12:22 | NUR ---
NURSING NOTE: REPEAT LABS CHANGED FROM 1400PM TO 1800PM. K PHOS BOLUS TO HANG AFTER MAG BOLUS'S COMPLETE. DR GONZALEZ AWARE. PT DENIES COMPLAINTS
[2016-07-12 13:49] VITALS: BP 132/70
--- NOTE | 2016-07-12 13:50 | NUR ---
NURSING NOTE: BP 132/70, HR 106, UNIQUE ORTEZ MD 018 MADE AWARE. CIWA 1 AT THIS TIME FOR FORGETFULNESS. BED ALARM IN PLACE. PT DENIES COMPLAINTS. SAFTETY MAINTAINED, FAMILY AT BEDSIDE. IV PROTONIX GIVEN PER MD ORDER. ABDOMEN REMAINS DISTENDED; SOFT/FIRM IN SOME AREAS. SKIN MILDLY JAUNDICE, SCLERA ICTERIC. SEE DOCUMENTED BMS, PT VOIDING ON BEDPAN, INC AT TIMES, ENCOURAGED TO GET OOB AND SIT IN CHAIR OR ON BSC, PT REFUSING.BARRIER CREAM APPLIED TO BOTTOM/BRITTNEY AREA; BLANCHEABLE REDNESS, SIZEWISE MATTRESS ORDERED, AWAITING DELIVERY. PT DENIES PAIN.
[2016-07-12 16:30] VITALS: BP 120/80
[2016-07-12 22:49] VITALS: BP 120/82
--- NOTE | 2016-07-13 07:04 | PN- Housestaff ---
IRAM PICKENS,ABDON 07/13/16 0704: Subjective Follow-up For: Alcohol withdrawal; Alcoholic liver disease/hepatitis; Dyselectrolytemia. Complaints: nausea Subjective: I followed up and examined the patient today. She is resting comfortably in bed , has oxygen via nasal cannula running at 2 L/m, doesn't offer any complaints, but seems lethargic. She is oriented to time place and person, responding appropriately, not confused. Her vitals overnight have been within normal limits except for her persistent tachycardia. No other issues. Her CIWA scores have been progressively decreasing, to the point where it was 0s and 1s yesterday, and overnight the max is 3. Review of Systems Constitutional: Reports: see HPI. Objective Last 24 Hrs of Vital Signs/I&O Vital Signs Date Time Temp Pulse Resp B/P B/P Pulse O2 O2 Flow FiO2 Mean Ox Delivery Rate 07/13 1600 98.5 121 20 122/70 07/13 1600 96 Nasal 1.0L Cannula 07/13 1441 98.5 121 20 122/70 96 Nasal 2.0L Cannula 07/13 1214 96 Nasal 2.0L Cannula 07/13 0718 98.3 115 20 108/74 94 Nasal 2.0L Cannula 07/13 0000 Nasal 1.0L Cannula 07/12 2347 116 120/82 07/12 2249 98.7 116 20 120/82 98 Nasal 2.0L Cannula Intake & Output 07/13 1600 07/13 0800 07/13 0000 Intake Total 812 671 4608 Output Total 400 550 Balance 100 750 900 Intake, IV 0 750 650 Intake, Oral 500 800 Number 2 2 3 Bowel Movements Output, Urine 400 550 Patient 74.843 kg Weight Physical Exam General Appearance: Oriented X3, Cooperative, No Acute Distress, tired Other Physical Findings: Skin: Jaundice present Neck: Supple, No JVD Cardiovascular: Regular Rate, Normal S1, Normal S2 Lungs: Clear to Auscultation, basal occassional crepts Abdomen: diminished bowel sounds, distended non-tender Extremities: No Edema, Normal Pulses Current Medications: Current Medications Sig/Connor Start time Last Medication Dose Route Stop Time Status Admin Albuterol Sulfate 3 ML Q4-PRN PRN 07/09 2130 AC 07/13 INH 1212 Clonidine 0.1 MG DAILY AC 07/14 0700 CAN PO Clonidine 0.1 MG BID 07/12 1353 DC 07/12 PO 2347 Folic Acid 1 MG DAILY 07/09 1433 AC 07/13 PO 0843 Loperamide HCl 4 MG ONE ONE 07/13 0945 DC 07/13 PO 07/13 0946 1151 Loperamide HCl 2 MG Q3P PRN 07/13 0945 AC PO Lorazepam 0.5 MG ONCE 07/14 0000 DC PO 07/14 0001 Lorazepam 0.5 MG TID 07/13 1000 AC 07/13 PO 07/20 0959 1602 Lorazepam 0.5 MG Q6H 07/13 0000 DC PO 07/13 1801 Lorazepam 1 MG Q8 07/11 1400 DC 07/13 PO 0536 Lorazepam 0 Q1P PRN 07/09 1830 AC 07/10 IV 1508 Morphine Sulfate 2 MG Q6PRN PRN 07/10 0630 AC IV Multivitamins 1 TAB DAILY 07/09 1433 AC 07/13 PO 0842 Omeprazole 40 MG DAILY AC 07/13 0734 AC 07/13 PO 0842 Ondansetron HCl 4 MG ONCE ONE 07/13 1415 DC 07/13 IV 07/13 1416 1414 Pantoprazole Sodium 40 MG DAILY 07/12 1215 DC 07/12 IV 1346 Patient Medication 1 ED .STK-MED ONE 07/13 1346 DC Teaching ED 07/13 1347 Phosphate 250 MG PC AND AT BEDTIME 07/11 1300 AC 07/13 PO 1755 Potassium Chloride 40 MEQ ONCE ONE 07/13 0945 DC 07/13 PO 07/13 0946 1152 Potassium Chloride 40 MEQ BID 07/12 1000 AC 07/13 PO 07/13 2201 0843 Potassium Chloride 40 MEQ Q10H 07/12 0945 DC 07/13 Sodium Chloride 1,000 ML IV 0535 Potassium Phosphate 15 mMol ONE ONE 07/13 2045 AC Dextrose/Water 250 ML IV 07/14 0048 Sodium Phosphate 15 mMol ONE ONE 07/12 2100 DC 07/12 Sodium Chloride 250 ML IV 07/13 0103 2239 Thiamine HCl 100 MG DAILY 07/09 1433 AC 07/13 PO 0842 Last 24 Hrs of Lab/Anand Results Last 24 Hrs of Labs/Mics: Laboratory Tests 07/13/16 0605: Anion Gap 11, Estimated GFR > 60, BUN/Creatinine Ratio 10.0, Phosphorus 1.5 L, Magnesium 1.9, Total Bilirubin 12.7 H, Direct Bilirubin 11.2 H, AST 287 H, ALT 122 H, Alkaline Phosphatase 263 H, Total Protein 5.7 L, Albumin 3.0 L, PT 13.0 H, INR 1.24 H, CBC w Diff MAN DIFF ORDERED, RBC 3.74 L, MCV 104.0 H, MCH 34.5 H, RDW 15.9 H, MPV 11.1 H, Segmented Neutrophils 52, Band Neutrophils 3, Lymphocytes 29, Monocytes 14 H, Eosinophils 2, Nucleated RBCs 1 H, Platelet Estimate DECREASED, Poikilocytosis 1+, Anisocytosis 1+, Macrocytic Cells 1+, Target Cells 1+, Stomatocytes 2+, PUBS MCHC 33.1 Orders CIWA Score (last 24 hrs): 0-3 Assessment/Plan Assessment: 55-year-old female with past medical history of right sided breast cancer, status post mastectomy, COPD, GERD, was brought in by her sister for alcohol detoxification. Patient is currently being admitted in the general medical floor: Alcohol withdrawal, undergoing detoxification Patient seems to have chronic alcohol-related problems, has recently started drinking heavily, more than usual, but has the will to cut down on alcohol. * CIWA is improving * Continue thiamine, folic acid, and multivitamins * Ativan 0.5 mg TID with Ativan PRN doses. No Librium in the setting of abnormal LFTs * After her detox is over, she might be started on acamprosate 666 mg 3 times daily per Psychiatry consult. * Social works consult has been placed, will follow. * Appreciate Psychiatry services consult. Possible refeeding syndrome with hypokalemia, hypophosphatemia and hypomagnesemia Reports intense tiredness. Persistently low potassium, phos and Mag * She was aggressively repleted orally and intravenously * Will closely monitor * Continue Neutraphos powder before meals, and potassium phosphate was added today once. * Repeat BEP, Phos and Mag tomorrow. * Diarrhea secondary to irritable bowel syndrome can also be one of the causes of decreased electrolytes. Expected to normalize after her bowel symptoms are in control. Hypoxia * The patient was requiring 2 L/m oxygen via nasal cannula and still appeared tired thus increasing the suspicion for 1. Pulmonary edema, 2. Pulmonary embolism. * Due to aggressive electrolyte repletion, that included IV fluids, possibility of congestive lungs were ruled out with clinical examination and a chest x-ray. IV fluids running at 100 mL per hour was discontinued this morning. * Due to persistent tachycardia, an EKG was repeated which showed sinus tachycardia with no changes compared to the previous EKG. Chest x-ray was negative. She did not have any leg swellings, no pain on palpation of bilateral calves. Thrombocytopenia * Platelet count trending 64 today, was 57, 58, 72, 84. * Likely due to alcohol * No active bleeding * Will continue to monitor Clinical depression/Major Depressive Disorder, no SI/HI * Not starting any psychotropics per Psychiatric consult currently. They will reassess once she is detoxified. Alcoholic liver disease, hepatitis * Patient's Total bilirubin is rising, 12.7 today but AST, ALT, alkaline phosphatase are starting to trend down. * Usg of liver suggestive of hepatic steatosis with free fluid in the RUQ. Non- tender ruling out SBP clinically. IBS * Continues to have diarrhea; stool culture sent, so far negative, so started imodium per GI today * C.diff negative #Diet: Regular diet #DVT prophylaxis: ALPS #CODE STATUS is full code Problem List: 1. Alcohol dependence with withdrawal 2. Alcoholic hepatitis 3. Hepatic steatosis 4. IBS (irritable bowel syndrome) 5. COPD (chronic obstructive pulmonary disease) 6. Jaundice Pain Ratin Pain Location: - Pain Goal: Pain 4 or less Pain Plan: prn Tomorrow's Labs & Rationales: INR, LFT, BEP, Mg, Phos, CBC to f/u and replete as necessary. SHANIKA MULLEN MD 07/13/16 1331: Attending MD Review Statement Attending Statement Attending MD Statement: examined this patient, discuss w/resident/PA/GEAR SHAPER SET UP OPERATOR, agreed w/resident/PA/GEAR SHAPER SET UP OPERATOR, reviewed EMR data (avail), discussed with case mgmt, reviewed images, amended to note Attending Assessment/Plan: Ms. Villatoro was interviewed, examined, and her EHR reviewed. She notes generalized weakness but denies sometimes of increasing withdrawal. She notes improvement with her antidiarrheal. We are continuing to follow her withdrawal scores and adjusting her lorazepam appropriately. We will follow her stool culture nonetheless contraindicated continue her loperamide. We will continue to follow her liver functions and her platelet counts and intervene accordingly.
[2016-07-13 07:18] VITALS: BP 108/74
--- NOTE | 2016-07-13 07:49 | Patient Discharge Instructions ---
Discharge Instructions General Discharge Information You were seen/treated for: Alcohol detoxification Liver disease Special Instructions: Please follow up with your primary care provider Dr. Garcia and building equipment inspector Dr. Bruno within 10 days of discharge. You were started on a long course of steroid therapy for the liver diease. Stop the medication if you develop any signs of an infection such as fever, cough or if there are no signs of improvement per your doctor's decision. You will need to have your bloodwork checked everyday by a staff visiting your home. Please have the results sent to your doctor. Please restrain from drinking alcohol. Please avoid taking any NSAIDs (i.e. ibuprofen) and Tylenol. If you decide you would like to see psychiatry on an ongoing basis please call [facility] at [phone] to arrange for an intake appointment. Diet Continue normal diet: Yes Recommended Diet: Heart Healthy Activity Full Activity/No Limits: Yes Acute Coronary Syndrome Inclusion Criteria At DC or during hospital stay patient has or had the following: ACS DIAGNOSIS No Discharge Core Measures Meds if any: Prescribed or Continued at Discharge Meds if any: NOT Prescribed or Continued at Discharge Congestive Heart Failure Inclusion Criteria At DC or during hospital stay patient has or had the following: CHF DIAGNOSIS No Discharge Core Measures Meds if any: Prescribed or Continued at Discharge Meds if any: NOT Prescribed or Continued at Discharge Cerebrovascular accident Inclusion Criteria At DC or during hospital stay patient has or had the following: CVA/TIA Diagnosis No Discharge Core Measures Meds if any: Prescribed or Continued at Discharge Meds if any: NOT Prescribed or Continued at Discharge Venous thromboembolism Inclusion Criteria VTE Diagnosis No VTE Type NONE VTE Confirmed by (Test) NONE Discharge Core Measures - Per Current guidelines, there needs to be overlap - treatment for the first 5 days of Warfarin therapy. - If discharged on Warfarin prior to 5 days of - overlap therapy, the patient will need to be - assessed for post discharge needs including - *Post discharge parental anticoagulation - *Warfarin and/or parental anticoagulation education - *Follow up date to check INR post discharge At least 5 days overlap therapy as Inpatient No Meds if any: Prescribed or Continued at Discharge Note: Overlap Therapy is Warfarin and Anticoagulant Meds if any: NOT Prescribed or Continued at Discharge
[2016-07-13 07:51] LABS: HEMATOCRIT 38.9 % (37-47); MEAN CORPUSCULAR HGB 34.5 PG (27.0-31.0); MEAN CORPUSCULAR HGB CONC 33.1 G/DL (33.0-37.0); MEAN PLATELET VOLUME 11.1 FL (7.4-10.4); PLATELET COUNT 64 /CUMM (130-400); RBC DISTRIBUTION WIDTH 15.9 % (11.5-14.5); RED BLOOD CELL CT 3.74 /CUMM (4.20-5.40); WHITE BLOOD CELL COUNT 7.5 /CUMM (4.8-10.8)
[2016-07-13 14:41] VITALS: BP 122/70
--- NOTE | 2016-07-13 15:03 | RADIOLOGY REPORT ---
EXAMINATION: XR PORTABLE CHEST CLINICAL INFORMATION: Tachycardia requiring additional oxygen. Rule out lung congestion. Receiving IV fluids at 100 mL an hour. COMPARISON: Chest x-ray dated 07/11/2016 and 12/05/2008. TECHNIQUE: Portable AP semierect view of the chest was obtained. FINDINGS: The cardiomediastinal silhouette is within normal limits in size allowing for technique and low lung volumes. Low lung volumes are seen. Evaluation is also limited by overlapping soft tissues. No definite focal consolidation, effusion or pneumothorax is seen. No evidence of pulmonary edema. Bony structures are unremarkable. IMPRESSION: Low lung volumes. No acute pulmonary process.
[2016-07-13 16:00] VITALS: BP 122/70
--- NOTE | 2016-07-13 19:22 | NUR ---
Referral received this am via electronic repair order clerk. EHR reviewed. Full assessment to follow.
[2016-07-13 22:13] VITALS: BP 106/80
[2016-07-14] VITALS (9 sets, daily range): BP systolic 102–110; BP diastolic 64–82
--- NOTE | 2016-07-14 07:25 | NUR ---
NURSING NOTE: BP 106/70, HR 100, ABDON SOLUTIONS MANAGER AWARE
--- NOTE | 2016-07-14 07:26 | NUR ---
NURSING NOTE: PT HEART RATE THIS MORNING WAS 119. PT DENIES SYMPTOMS. BONDING SUPERVISOR STAN GUNTER MADE AWARE. NO FURTHER ORDERS AT THIS TIME. WILL CONTINUE TO MONITOR.
--- NOTE | 2016-07-14 07:35 | PN- Housestaff ---
IRAM PICKENS,ABDON 07/14/16 0734: Subjective Follow-up For: Alcohol detoxification; Diselectrolytemia; Alcoholic hepatitis. Subjective: I followed up and examined the patient today. She is resting comfortably in bed , not in distress breathing normally in room air, is still complaining that she has frequent loose motions. Vitals have been stable, no overnight issues otherwise. Review of Systems Constitutional: Reports: see HPI. Gastrointestinal: Reports: diarrhea. Objective Last 24 Hrs of Vital Signs/I&O Vital Signs Date Time Temp Pulse Resp B/P B/P Pulse O2 O2 Flow FiO2 Mean Ox Delivery Rate 07/14 1328 98.0 98 20 110/64 97 Room Air 07/14 1056 96 Room Air Room Air 07/14 0725 100 106/70 07/14 0633 99.0 119 20 104/78 95 Room Air 07/14 0600 99.0 119 20 104/78 07/13 2217 94 Room Air 07/13 2213 98.3 123 22 106/80 94 Nasal 2.0L Cannula Intake & Output 07/14 1600 07/14 0800 07/14 0000 Intake Total 920 120 800 Output Total 500 850 Balance 420 120 -50 Intake, IV 20 Intake, Oral 900 120 800 Number 3 5 4 Bowel Movements Output, Urine 500 850 Physical Exam General Appearance: Alert, Oriented X3, Cooperative, No Acute Distress Other Physical Findings: Skin: Jaundice present Neck: Supple, No JVD Cardiovascular: Regular Rate, Normal S1, Normal S2 Lungs: Clear to Auscultation, basal occassional crepts Abdomen: diminished bowel sounds, distended non-tender Extremities: No Edema, Normal Pulses Current Medications: Current Medications Sig/Connor Start time Last Medication Dose Route Stop Time Status Admin Albuterol Sulfate 3 ML Q4-PRN PRN 07/09 2130 AC 07/13 INH 1212 Clonidine 0.1 MG DAILY AC 07/14 0700 CAN PO Clonidine 0.1 MG BID 07/12 1353 DC 07/12 PO 2347 Folic Acid 1 MG DAILY 07/09 1433 AC 07/13 PO 0843 Loperamide HCl 4 MG ONE ONE 07/13 0945 DC 07/13 PO 07/13 0946 1151 Loperamide HCl 2 MG Q3P PRN 07/13 0945 AC PO Lorazepam 0.5 MG ONCE 07/14 0000 DC PO 07/14 0001 Lorazepam 0.5 MG TID 07/13 1000 AC 07/13 PO 07/20 0959 2213 Lorazepam 0 Q1P PRN 07/09 1830 AC 07/10 IV 1508 Morphine Sulfate 2 MG Q6PRN PRN 07/10 0630 AC IV Multivitamins 1 TAB DAILY 07/09 1433 AC 07/13 PO 0842 Omeprazole 40 MG DAILY AC 07/13 0734 AC 07/14 PO 0559 Ondansetron HCl 4 MG ONCE ONE 07/13 1415 DC 07/13 IV 07/13 1416 1414 Patient Medication 1 ED .STK-MED ONE 07/13 1346 DC Teaching ED 07/13 1347 Phosphate 250 MG PC AND AT BEDTIME 07/11 1300 AC 07/13 PO 2121 Potassium Chloride 40 MEQ ONCE ONE 07/13 0945 DC 07/13 PO 07/13 0946 1152 Potassium Chloride 40 MEQ BID 07/12 1000 DC 07/13 PO 07/13 2201 2121 Potassium Chloride 40 MEQ Q10H 07/12 0945 DC 07/13 Sodium Chloride 1,000 ML IV 0535 Potassium Phosphate 15 mMol ONE ONE 07/13 2045 DC 07/13 Dextrose/Water 250 ML IV 07/14 0048 2213 Thiamine HCl 100 MG DAILY 07/09 1433 AC 07/13 PO 0842 Last 24 Hrs of Lab/Anand Results Last 24 Hrs of Labs/Mics: Laboratory Tests 07/14/16 0614: Sodium Pending, Potassium Pending, Chloride Pending, Carbon Dioxide Pending, Anion Gap Pending, BUN Pending, Creatinine Pending, BUN/Creatinine Ratio Pending , Phosphorus Pending, Magnesium Pending, Total Bilirubin Pending, Direct Bilirubin Pending, AST Pending, ALT Pending, Alkaline Phosphatase Pending, Total Protein Pending, Albumin Pending, PT Pending, INR Pending, CBC w Diff Pending, WBC Pending, RBC Pending, Hgb Pending, Hct Pending, MCV Pending, MCH Pending, RDW Pending, Plt Count Pending, MPV Pending, PUBS MCHC Pending Assessment/Plan Assessment: 55-year-old female with past medical history of right sided breast cancer, status post mastectomy, COPD, GERD, was brought in by her sister for alcohol detoxification. Patient is currently being admitted in the general medical floor: Alcohol withdrawal, undergoing detoxification Patient seems to have chronic alcohol-related problems, has recently started drinking heavily, more than usual, but has the will to cut down on alcohol. * CIWA is improving * Continue thiamine, folic acid, and multivitamins * Ativan 0.5 mg BID with Ativan PRN doses. No Librium in the setting of abnormal LFTs * After her detox is over, she can be started on acamprosate 666 mg 3 times daily per Psychiatry consult. * Social works consult has been placed, will follow. * Appreciate Psychiatry services consult. Possible refeeding syndrome with hypokalemia, hypophosphatemia and hypomagnesemia Reports intense tiredness. Persistently low potassium, phos and Mag. Potassium level was better today. * She was aggressively repleted orally and intravenously * Will closely monitor * Continue Neutraphos powder before meals, and potassium phosphate was added today once. * Repeat BEP, Phos and Mag tomorrow. * Diarrhea secondary to irritable bowel syndrome can also be one of the causes of decreased electrolytes. Expected to normalize after her bowel symptoms are in control. Hypoxia * Patient is breathing normally on room air, hypoxia has resolved. Thrombocytopenia * Platelet count trending 96 today, was 64, 57, 58, 72, 84. * Likely due to alcohol * No active bleeding * Will continue to monitor Clinical depression/Major Depressive Disorder, no SI/HI * Not starting any psychotropics per Psychiatric consult currently. They will reassess once she is detoxified. Alcoholic liver disease, hepatitis * Patient's Total bilirubin is stable today, 12.7 today but AST, ALT, alkaline phosphatase are starting to trend down. * Usg of liver suggestive of hepatic steatosis with free fluid in the RUQ. Non- tender ruling out SBP clinically. IBS * Continues to have diarrhea; stool culture sent, so far negative, so started imodium per GI * C.diff negative Malnutrition * Patient's BMI is 25.8 but her albumin is 2.7, which was 4.0 on July 09, and the patient has had severe electrolyte disbalance most possibly due to alcohol or malabsorption, or diarrhea/IBS. In any case, patient is malnourished and would benefit from nutritional consult. #Diet: Regular diet #DVT prophylaxis: ALPS #CODE STATUS is full code Problem List: 1. Alcohol dependence with withdrawal 2. Alcoholic hepatitis 3. Hepatic steatosis 4. Jaundice 5. IBS (irritable bowel syndrome) 6. COPD (chronic obstructive pulmonary disease) Pain Ratin Pain Location: - Pain Goal: Pain 4 or less Pain Plan: PRN Tomorrow's Labs & Rationales: BEP, CBC, Mg, phos, INR, LFT SHANIKA MULLEN MD 07/14/16 1140: Attending Review Statement Attending Statement Attending Statement: examined this patient, agreed w/resident/PA/CYBER DEFENSE INCIDENT RESPONDER, reviewed EMR data (avail), discussed with nursing, discussed with case mgmt, amended to note Attending Assessment/Plan: Ms. Villatoro was interviewed, examined, and her EHR reviewed. Problems addressed today are improving acute ethanol withdrawal syndrome with a decreasing CIWA score and benzodiazepine requirement. Her acute alcoholic hepatitis is also noted to be resolving although her abdomen remains softly distended likely to ascites. Her hypokalemia has resolved however she is still requiring supplementation of phosphate and magnesium to correct her electrolyte abnormalities. Loperamide has improved her diarrhea although it is still present. She remains malnourished with a low serum albumin. At this time we should continue to follow her CIWA scores and treat appropriately. We will also continue thiamine, folate, and multivite's. We will continue to follow her liver functions and her prothrombin time. We will continue to replete phosphate and magnesium. We will also continue her loperamide. As per the recommendation of the psychiatry service we will withhold any pharmacological intervention pending correction of her liver function tests.
[2016-07-14 08:07] LABS: MEAN CORPUSCULAR HGB 34.8 PG (27.0-31.0); MEAN CORPUSCULAR HGB CONC 33.2 G/DL (33.0-37.0); MEAN PLATELET VOLUME 11.9 FL (7.4-10.4); PLATELET COUNT 96 /CUMM (130-400); RBC DISTRIBUTION WIDTH 16.5 % (11.5-14.5); RED BLOOD CELL CT 3.53 /CUMM (4.20-5.40)
[2016-07-14 08:18] LABS: PT 13.3 SEC (9.4-12.5)
--- NOTE | 2016-07-14 13:55 | NUR ---
NURSING SHIFT NOTE: PT REMAINS AWAKE, ALERT, FORGETFUL AT TIMES, ROOM AIR, CIWA 0-1. FALL PREVENTION PROTOCOL IN PLACE, BED ALARM IN PLACE AND WORKING, FAMILY AT BEDSIDE. NEW IV PLACED TODAY; +BLOOD RETURN, FLUSHED PER PROTOCOL, PREV IV DCD IT WAS OUTDATE. PT HAD 3 SMALL LOOSE BM IN COMMODE THIS SHIFT; PRN IMMODIUM GIVEN; SEE EMAR, ALLIE REDNESS TO BRITTNEY/BOTTOM; BARRIER CREAM APPLIED. PT TURNS AND REPOSITIONS SELF IN BED. SIZEWISE MATTRESS ORDERED PT SEEN BY SOCIAL WORK TODAY.SAFETY MAINTAINED, NEEDS IN REACH.
--- NOTE | 2016-07-14 14:56 | PN- Psychiatry ---
Assessment/Plan Impression: Identifying Info: 55-year-old single, recently unemployed female living with her boyfriend in [place], history of chronic off-and-on alcohol use over the past 6 years. Consult requested for ETOH use and depression. SUBJECTIVE "I'm doing pretty all right." Denies any complaints at present, no subjective symptoms of withdrawal endorsed. States tremor only bothers her when she reaches for something. Discussed the possibility of starting medication to aid with alcohol cravings today which she declines at present. She states she would be more open to starting a medication on an outpatient basis. She is open to aftercare. Brief ROS Gait: Impaired Sleep: Fair Appetite: Impaired OBJECTIVE Mental Status Exam Presentation/Appearance: Cooperative with evaluation. Hospital garb, lying in bed. Fine tremor noted. Orientation: x4 Sensorium: Awake and alert Eye contact: Appropriate Affect: Somewhat blunted Mood: "Pretty alright" Depression: Denies Anxiety: Denies Thought Content: - Denies SI/HI, AH/VH, PI. States and also believes they will not kill themselves. - Denies Hopeless/Helpless Thoughts Thought Process: Linear Associations: Appropriate Speech: Normal tone and rate Judgment: Fair Insight: Fair Cognition: Memory: Grossly intact, staff reports impairment Attention/Concentration: Grossly intact Fund of Knowledge: Did not assess Abstractions:Did not assess MMSE: Did not assess CIWA between 0-1 today. Ativan 1.5mg in last 24h. Per nursing report patient has been intermittently confused and a poor historian at times. For example when asked how much she typically drinks she stated "95% " when asked to clarifying question the patient stated that she slept part of the time. ASSESSMENT 55-year-old single female with a history of treatment alcohol use over the past 6 years presents with increasing use in the context of job loss. At present she denies any mood symptoms and is experiencing mild alcohol withdrawal symptoms. She is agreeable to follow-up care for her alcohol use but when not being interested in starting medication for alcohol cravings at this time. Diagnosis Alcohol use disorder, severe Rule out delirium due to alcohol withdrawal, mild Rule out adjustment disorder A total of30 minutes was spent with the patient with more than 50% of the time spent in counseling and/or coordination of care. Suggestion: 1. Appreciate Social Work assistance with disposition. 2. Patient declines starting ETOH craving medication at present. 3. Continue CIWA, medicate with Ativan appropriately, continue vitamins. Thank you for including psychiatry in this case we'll continue to follow only on an as-needed basis. Subjective Subjective: as above
--- NOTE | 2016-07-14 21:42 | Event Note ---
Event Note Event Note: Nurse noted blood in stool. She has been having mucosy diarrhea. HR in 120s, BP systolic in 110. C diff was already checked on July 10 and was negative. Patient has not been getting antibiotics since then. Stool cx from July 12 negative. Has been getting imodium for diarrhea Assessment & Plan: Diarrhea most likely secondary to IBS with dehydation causing tachycardia start ns at 75ml/hr for 1 bag Tachycardia could be due to alcohol withdrawal, but has been scoring low on CIWA , and BP remains stable, therefore less likely the cause of tachycardia Suspicion of c diff is low, but will send for stool culture and c diff again Continue imodium (that is already ordered). watch h/h given blood in stool watch electrolytes closely, replete as needed GI follow up as needed Plan discussed with the resident, Dr Johana Ridley
--- NOTE | 2016-07-14 22:56 | NUR ---
ALERT AND ORIENTED X 3. ON ROOM AIR. DENIES SHORTNESS OF BREATH SCHOOL OFFICE ASSISTANT AWARE OF HR OF 122. NS @ 75 ORDERED. OTHER VSS DENIES CHEST PAIN. + PULSES. DENIES NUMBNESS/TINGLING SKIN C/D/I. MILD TREMORS NOTED RELATED TO DETOX, MUCOUSY STOOL NOTED. SCHOOL OFFICE ASSISTANT AWARE. LABS SENT NO DISCOMFORT NOTED. WILL CONTINUE TO MONITOR
[2016-07-15] VITALS (8 sets, daily range): BP systolic 106–130; BP diastolic 60–82
--- NOTE | 2016-07-15 07:02 | PN- Housestaff ---
IRAM PICKENS,ABDON 07/15/16 0702: Subjective Follow-up For: Alcohol detoxification; Diselectrolytemia; Alcoholic hepatitis. Complaints: mucous diarrhea, night staff reported blood mixed loose stools Subjective: I followed up and examined the patient today. She is resting comfortably in bed , not in distress breathing normally in room air, is still complaining that she has frequent loose motions which were mucous mixed per nursing staff and blood mixed per night housestaff (she has hemorrhoids though). Vitals have been stable EXCEPT FOR TACHYDARDIA (sinus per EKG), no overnight issues otherwise. This morning, at interview, the patient seems to have much distended abdomen, seems to help mild distress because of it, but does not complain of any pain abdomen. Her CIWA scores are downtrending and are minimal. No more in withdrawal clinically. Review of Systems Constitutional: Reports: see HPI. Gastrointestinal: Reports: see HPI, bloating, diarrhea, distention, changes in stool. Denies: bowel incontinence, melena, nausea, vomiting. Objective Last 24 Hrs of Vital Signs/I&O Vital Signs Date Time Temp Pulse Resp B/P B/P Pulse O2 O2 Flow FiO2 Mean Ox Delivery Rate 07/15 1659 94 Room Air 07/15 1600 98.3 120 20 130/72 07/15 1355 98.3 120 20 130/72 93 Room Air 07/15 1028 116 07/15 1000 104 106/78 07/15 0945 104 106/60 07/15 0800 100 20 108/80 96 Room Air 07/15 0614 98.5 118 22 110/68 92 Room Air 07/14 2252 99.4 127 20 102/70 93 Room Air 07/14 2200 98.5 122 20 110/82 07/14 2013 93 Room Air 07/14 2000 122 07/15 1999 98.5 122 20 110/82 Intake & Output 07/15 1600 01 0800 07/15 0000 Intake Total 1950 500 600 Output Total 650 100 550 Balance 1300 400 50 Intake, IV 1100 500 Intake, Oral 850 600 Number 2 2 3 Bowel Movements Output, Stool 150 Output, Urine 650 100 400 Physical Exam General Appearance: Alert, Oriented X3, Cooperative, Mild Distress (due to distended abdomen) Other Physical Findings: Skin: Jaundice present Neck: Supple, No JVD Cardiovascular: Regular Rate, Normal S1, Normal S2 Lungs: Clear to Auscultation, basal occassional crepts Abdomen: diminished bowel sounds, more distended than yesterday, still non- tender Extremities: No Edema, Normal Pulses Psych: normal findings, no SI/HI Current Medications: Current Medications Sig/Connor Start time Last Medication Dose Route Stop Time Status Admin Albuterol Sulfate 3 ML Q4-PRN PRN 07/09 2130 07/15 INH 1658 Cholestyramine Resin 1 PAC BID 07/15 1442 07/15 PO 1553 Folic Acid 1 MG DAILY 07/09 1433 07/15 PO 0939 Loperamide HCl 2 MG Q3P PRN 07/13 0945 07/15 PO 1358 Lorazepam 0.5 MG BID 07/14 1000 DE 07/15 PO 07/21 0959 0939 Lorazepam 0 Q1P PRN 07/09 1830 07/10 IV 1508 Magnesium Oxide 400 MG DAILY 07/15 1011 DE 07/15 PO 07/16 2300 1327 Magnesium Sulfate 1 GM Q2H 07/15 1630 07/15 Dextrose/Water 100 ML IV 07/15 2029 1657 Magnesium Sulfate 1 GM Q2H 07/15 1445 DE Dextrose/Water 100 ML IV 07/15 1844 Morphine Sulfate 2 MG Q6PRN PRN 07/10 0630 IV Multivitamins 1 TAB DAILY 07/09 1433 07/15 PO 0939 Omeprazole 40 MG DAILY 07/13 0734 07/15 PO 0611 Ondansetron HCl 4 MG Q6P PRN 07/15 1445 07/15 IV 1452 Patient Medication 1 ED .STK-MED ONE 07/15 1241 DE Teaching ED 07/15 1242 Phenylephrine HCl 1 TEMI Q6P PRN 07/15 1630 AC AZ Phosphate 250 MG PC AND AT BEDTIME 07/15 1300 07/15 PO 07/16 2300 1553 Phosphate 250 MG PC AND AT BEDTIME 07/14 1800 DE 07/14 PO 07/14 2355 2141 Phosphate 250 MG PC AND AT BEDTIME 07/11 1300 DE 07/14 PO 1318 Sodium Chloride 500 ML BOLUS ONE 07/15 1430 DC 07/15 IV 07/15 1529 1439 Sodium Chloride 1,000 ML Q13H 07/14 2215 DE 07/14 IV 07/15 1114 2313 Thiamine HCl 100 MG DAILY 07/09 1433 AC 07/15 PO 0939 Last 24 Hrs of Lab/Anand Results Last 24 Hrs of Labs/Mics: Laboratory Tests 07/15/16 0630: Anion Gap 8, Estimated GFR > 60, BUN/Creatinine Ratio 16.0, Phosphorus 2.2 L, Magnesium 1.3 L, Total Bilirubin 14.1 H, Direct Bilirubin 12.4 H, AST 166 H, ALT 95 H, Alkaline Phosphatase 216 H, Total Protein 5.3 L, Albumin 2.6 L, TSH 5.040 H, Free T4 2.03 H, PT 14.0 H, INR 1.34 H, CBC w Diff MAN DIFF ORDERED, RBC 3.57 L, MCV 105.6 H, MCH 35.1 H, RDW 16.0 H, MPV 12.7 H, Segmented Neutrophils 47, Band Neutrophils 6 H, Lymphocytes 18 L, Monocytes 25 H, Metamyelocytes 1, Myelocytes 3 H, Platelet Estimate DECREASED, Polychromasia 1+, Macrocytic Cells 2+, Target Cells FEW, Stomatocytes 2+, PUBS MCHC 33.2 Microbiology 07/15 1753 URINE ROUT: Urine Culture - COLB 07/14 2199 STOOL: Stool Culture - RES 07/14 2199 STOOL: Clostridium difficile Toxin A & B - COMP Assessment/Plan Assessment: 55-year-old female with past medical history of right sided breast cancer, status post mastectomy, COPD, GERD, was brought in by her sister for alcohol detoxification. Patient is currently being admitted in the general medical floor: Alcohol withdrawal, undergoing detoxification Patient seems to have chronic alcohol-related problems, has recently started drinking heavily, more than usual, but has the will to cut down on alcohol. CIWA is improving, so will stop PO Ativan, but continue IV PRN Ativan which she has not received in the last couple of days. Continue thiamine, folic acid, and multivitamins. Will consider starting her on acamprosate 666 mg 3 times daily per Psychiatry consult. * Social works consult has been placed, will follow. * Appreciate Psychiatry services consult. Possible refeeding syndrome with hypokalemia, hypophosphatemia and hypomagnesemia Reports intense tiredness. Persistently low potassium, phos and Mag. Potassium level was better today. * She was aggressively repleted orally and intravenously * Will closely monitor * Repleted phos, and magnesium by IV per GI service suggestion to avoid diarrhea. * Repeat BEP, Phos and Mag tomorrow. * Diarrhea secondary to irritable bowel syndrome can also be one of the causes of decreased electrolytes. Expected to normalize after her bowel symptoms are in control. Alcoholic liver disease, hepatitis, ascites * Patient's Total bilirubin is stable today, 14.1 today but AST, ALT, alkaline phosphatase are starting to trend down. * Usg of liver suggestive of hepatic steatosis with free fluid in the RUQ. Non- tender ruling out SBP clinically. * CT abd-pelvis ordered, and depending on the amount of ascites patient has, will place a request for ultrasound-guided thoracentesis, diagnostic and therapeutic tomorrow. * Patient's abdomen is distended but not tender, thus has low suspicion for spontaneous bacterial peritonitis. IBS * Continues to have diarrhea. Mg supplement changed to IV form; stool culture nagative sofar, continue imodium per GI * C.diff negative * Fecal elastase, fecal fat, ordered per GI consultation. * Patient's stool samples later today have been negative for blood grossly. Overnight stool with blood mixed in it could be due to hemorrhoids. * GI consult appreciated. Malnutrition * Patient's BMI is 25.8 but her albumin is 2.7, which was 4.0 on July 09, and the patient has had severe electrolyte disbalance most possibly due to alcohol or malabsorption, or diarrhea/IBS. In any case, patient is malnourished and would benefit from nutritional consult. Hypoxia * Patient is breathing normally on room air, hypoxia has resolved. Thrombocytopenia * Platelet count trending 119 today, was 96, 64, 57, 58, 72, 84. * Likely due to alcohol * No active bleeding * Will continue to monitor Clinical depression/Major Depressive Disorder, no SI/HI * Not starting any psychotropics per Psychiatric consult currently. They will reassess once she is detoxified. #Diet: Regular diet #DVT prophylaxis: ALPS #CODE STATUS is full code Problem List: 1. Alcohol dependence with withdrawal 2. Alcoholic hepatitis 3. Jaundice 4. IBS (irritable bowel syndrome) 5. COPD (chronic obstructive pulmonary disease) 6. Ascites 7. Hemorrhoid Pain Ratin Pain Location: - Pain Goal: Pain 4 or less Pain Plan: prn Tomorrow's Labs & Rationales: CBC, BEP, Mg, phos, LFt, INR SHANIKA MULLEN MD 07/15/16 1458: Attending MD Review Statement Attending Statement Attending MD Statement: examined this patient, discuss w/resident/PA/WELDER HELPER, agreed w/resident/PA/WELDER HELPER, reviewed EMR data (avail), discussed with nursing, amended to note Attending Assessment/Plan: Ms. Villatoro continues to have low CIWA scores and it is requiring minimal chemical intervention at this time. Her transaminases and alkaline phosphatase have continued to improve but her bilirubin is increasing. Diarrhea is intermittently problematic. She continues to have significant hypophosphatemia and hypomagnesemia. Episode of rectal bleeding has been noted. There was also noted to be a small rise in her WBC today. We will continue to follow her CIWA scores and treat accordingly. Serial LFTs in prothrombin times will also be followed. In addition we will add cholestyramine her regimen which will help with her hyperbilirubinemia and also may possibly help decrease her diarrhea. We will continue to supplement her magnesium intravenously as suggested by Dr. Bruno and as well as supplement her phosphate and follow levels. We will be on the alert for any continued bleeding or hemodynamic instability. We will also monitor carefully for any evidence of acute infectious disease.
[2016-07-15 08:23] LABS: HEMATOCRIT 37.7 % (37-47); RED BLOOD CELL CT 3.57 /CUMM (4.20-5.40)
[2016-07-15 08:33] LABS: MEAN CORPUSCULAR HGB 35.1 PG (27.0-31.0); MEAN CORPUSCULAR HGB CONC 33.2 G/DL (33.0-37.0); MEAN CORPUSCULAR VOLUME 105.6 FL (81.0-99.0); MEAN PLATELET VOLUME 12.7 FL (7.4-10.4); PLATELET COUNT 119 /CUMM (130-400)
--- NOTE | 2016-07-15 10:28 | NUR ---
NURSING NOTE: MANUAL HR 116, ROUTINE EKG ORDERED BY MD Killian AND DONE BY MD HODAN CALLED TO READ EKG, PT DENIES COMPLAINTS, UA ORDERED; HAT PLACED IN BSC. AWAIT NEXT VOID, PT AND MST AWARE.
--- NOTE | 2016-07-15 13:58 | NUR ---
NURSING NOTE: BP 130/72, HR 120, PT DENIES COMPLAINTS AT THIS TIME, PT HAD A LOOSE MUCOUSY STOOL; LIGHT BROWN/YELLOW IN COLOR, GUIAC NEGATIVE, PT ALSO VOIDED 200ML OF ORANGE COLORED URINE; MIXED WITH STOOL UNABLE TO SEND UA. ABDON PICKENS MADE AWARE OF ALL OF THE ABOVE. PT AWAKE, A/OX3, ROOM AIR, DENIES PAIN OR DISTRESS, BED ALARM IN PLACE AND WORKING, ALPS ON. SAFETY MAINATINED,NEEDS IN REACH.
--- NOTE | 2016-07-15 14:22 | PN- Gastroenterology ---
Assessment/Plan Assessment/Recommendations: Assessment: Ms. Villatoro is a 55 year old female with D-IBS, GERD and etoh abuse who has been drinking more heavily over the past month and now has laboratory evidence of alcoholic hepatitis. She has been getting ativan for etoh withdrawal symptoms and she has been started on imodium for diarrhea which has led to some improvement, but not complete relief. She had an episode of rectal bleeding last night which hasn't persisted and was likely secondary to hemorrhoids based on the description of the event. She has remained hemodynamically stable and hasn't had any further bleeding so I don't feel that an endoscopic work up is warranted for this at this time. Her bilirubin remains moderately elevated and has acutally worsened over the past few days, but her INR has remained relatively stable and I feel that her LFTs will ultimatly improve with time if she is able to maintain her sobriety. Recommendations: 1. Follow daily LFTs and INR and would continue to observe off of steroids 2. Use benzodiazepenes as needed for etoh withdrawal symptoms 3. Social service consult for etoh abuse 4. Check stool studies to look for fecal fat and fecal elastase 5. Would discontinue oral magnesium and if supplementation is needed would recommend giving it IV as PO mag can lead to diarrhea. 5. Continue omeprazole as needed for heartburn. 6. Consideration will be given to repeat an EGD as an outpatient to assess for varices 7. Low sodium diet as tolerated. 8. Use prep H or anusol suppositories as needed for any further rectal bleeding 9. Notify GI for signs of hemodynamically significant GI bleeding. 10. Follow daily CBC and transfuse as needed to keep hgb > 8. I will continue to follow this patient and make further recommendations based on her clinical course and results of repeat blood work, US and stool testing. Problem List: 1. IBS (irritable bowel syndrome) 2. Jaundice 3. Hepatic steatosis 4. Abdominal pain 5. Diarrhea Subjective Subjective: Pt continues to have diarrhea which is described as 'mucousy'. She had one episode of rectal bleeding last night which was not mixed in with the stool. She hasn't had any further rectal bleeding since last night and she is without melena. She does have some vague epigastric discomfort, but she is without any vomiting. Objective Vital Signs and I&Os Vital Signs Date Time Temp Pulse Resp B/P B/P Pulse O2 O2 Flow FiO2 Mean Ox Delivery Rate 07/15 1355 98.3 120 20 130/72 93 Room Air 07/15 1028 116 07/15 1000 104 106/78 07/15 0945 104 106/60 07/15 0800 100 20 108/80 96 Room Air 07/15 0614 98.5 118 22 110/68 92 Room Air 07/14 2252 99.4 127 20 102/70 93 Room Air 07/14 2200 98.5 122 20 110/82 07/14 2013 93 Room Air 07/14 2000 122 07/14 2000 98.5 122 20 110/82 07/14 1800 98.5 110 20 110/82 07/14 1800 98.5 110 20 110/82 92 Room Air 07/14 1600 98.0 98 20 110/64 Intake & Output 07/15 1600 07/15 0400 07/14 1600 07/14 0400 07/13 1600 07/13 0400 Intake Total 7663 875 2495 800 1250 1450 Output Total 750 550 500 850 400 550 Balance 1200 50 540 -50 850 900 Intake, IV 1100 20 750 650 Intake, Oral 179 334 9087 800 500 800 Number 4 3 6 6 4 3 Bowel Movements Output, Stool 150 Output, Urine 750 400 500 850 400 550 Patient 165 lb Weight Physical Exam General Appearance: well developed/nourished, no apparent distress, comfortable Head: atraumatic, normal appearance Ears, Nose, Throat: + icterus Neck: normal inspection, supple Respiratory: normal breath sounds, chest non-tender Cardiovascular: regular rate/rhythm Abdomen: normal bowel sounds, soft, mild tenderness to deep palpation Extremities: normal inspection Skin: jaundice Current Medications: Current Medications Sig/Connor Start time Last Medication Dose Route Stop Time Status Admin Albuterol Sulfate 3 ML Q4-PRN PRN 07/09 2130 AC 07/14 INH 1055 Folic Acid 1 MG DAILY 07/09 1433 AC 07/15 PO 0939 Loperamide HCl 2 MG Q3P PRN 07/13 0945 AC 07/15 PO 1358 Lorazepam 0.5 MG BID 07/14 1000 DC 07/15 PO 07/21 0959 0939 Lorazepam 0 Q1P PRN 07/09 1830 AC 07/10 IV 1508 Magnesium Oxide 400 MG DAILY 07/15 1011 AC 07/15 PO 07/16 2300 1327 Magnesium Oxide 400 MG ONE ONE 07/14 1715 DC 07/14 PO 07/14 1716 1919 Morphine Sulfate 2 MG Q6PRN PRN 07/10 0630 IV Multivitamins 1 TAB DAILY 07/09 1433 AC 07/15 PO 0939 Omeprazole 40 MG DAILY 07/13 0734 AC 07/15 PO 0611 Patient Medication 1 ED .STK-MED ONE 07/15 1241 DC Teaching ED 07/15 1242 Phosphate 250 MG PC AND AT BEDTIME 07/15 1300 07/15 PO 07/16 2300 1327 Phosphate 250 MG PC AND AT BEDTIME 07/14 1800 RI 07/14 PO 07/14 2355 2141 Phosphate 250 MG PC AND AT BEDTIME 07/11 1300 RI 07/14 PO 1318 Sodium Chloride 1,000 ML Q13H 07/14 2215 RI 07/14 IV 07/15 1114 2313 Thiamine HCl 100 MG DAILY 07/09 1433 07/15 PO 0939 Results Pertinent Lab Results: Laboratory Tests 07/15 07/14 0630 0614 Chemistry Sodium (137 - 145 mmol/L) 137 137 Potassium (3.5 - 5.1 mmol/L) 4.4 4.4 Chloride (98 - 107 mmol/L) 101 103 Carbon Dioxide (22 - 30 mmol/L) 28 26 Anion Gap (5 - 16) 8 8 BUN (7 - 17 mg/dL) 8 5 L Creatinine (0.5 - 1.0 mg/dL) 0.5 0.4 L Estimated GFR (>60 ml/min) > 60 > 60 BUN/Creatinine Ratio (7 - 25 %) 16.0 12.5 Phosphorus (2.5 - 4.5 mg/dL) 2.2 L 1.7 L Magnesium (1.6 - 2.3 mg/dL) 1.3 L 1.5 L Total Bilirubin (0.2 - 1.3 mg/dL) 14.1 H 12.7 H Direct Bilirubin (< 0.4 mg/dL) 12.4 H 11.0 H AST (14 - 36 U/L) 166 H 209 H ALT (9 - 52 U/L) 95 H 108 H Alkaline Phosphatase (<127 U/L) 216 H 235 H Total Protein (6.3 - 8.2 g/dL) 5.3 L 5.4 L Albumin (3.5 - 5.0 g/dL) 2.6 L 2.7 L TSH (0.270 - 4.200 uIU/mL) 5.040 H Free T4 (0.64 - 1.79 ng/dL) 2.03 H Coagulation PT (9.4 - 12.5 SEC) 14.0 H 13.3 H INR (0.90 - 1.19) 1.34 H 1.27 H Hematology CBC w Diff MAN DIFF ORDERED MAN DIFF ORDERED WBC (4.8 - 10.8 /CUMM) 11.0 H 9.0 RBC (4.20 - 5.40 /CUMM) 3.57 L 3.53 L Hgb (12.0 - 16.0 G/DL) 12.5 12.3 Hct (37 - 47 %) 37.7 37.0 MCV (81.0 - 99.0 FL) 105.6 H 105.0 H MCH (27.0 - 31.0 PG) 35.1 H 34.8 H RDW (11.5 - 14.5 %) 16.0 H 16.5 H Plt Count (130 - 400 /CUMM) 119 L 96 L MPV (7.4 - 10.4 FL) 12.7 H 11.9 H Segmented Neutrophils (42.2 - 75.2 %) 47 54 Band Neutrophils (0.0 - 5.0 %) 6 H 7 H Lymphocytes (20.5 - 51.1 %) 18 L 24 Monocytes (1.7 - 9.3 %) 25 H 13 H Basophils (0.0 - 2.0 %) 1 Metamyelocytes (0.0 - 1.0 %) 1 1 Myelocytes (0 - 0 %) 3 H Platelet Estimate (ADEQUATE) DECREASED DECREASED Polychromasia 1+ 1+ Macrocytic Cells 2+ 2+ Target Cells FEW Stomatocytes 2+ 3+ PUBS MCHC (33.0 - 37.0 G/DL) 33.2 33.2 07/13 07/12 07/12 0605 1999 1814 Chemistry Sodium (137 - 145 mmol/L) 140 138 Potassium (3.5 - 5.1 mmol/L) 3.3 L Cancelled 3.3 L Chloride (98 - 107 mmol/L) 103 101 Carbon Dioxide (22 - 30 mmol/L) 26 24 Anion Gap (5 - 16) 11 13 BUN (7 - 17 mg/dL) 4 L 3 L Creatinine (0.5 - 1.0 mg/dL) 0.4 L 0.4 L Estimated GFR (>60 ml/min) > 60 > 60 BUN/Creatinine Ratio (7 - 25 %) 10.0 7.5 Phosphorus (2.5 - 4.5 mg/dL) 1.5 L 1.0 L Magnesium (1.6 - 2.3 mg/dL) 1.9 2.3 Total Bilirubin (0.2 - 1.3 mg/dL) 12.7 H Direct Bilirubin (< 0.4 mg/dL) 11.2 H AST (14 - 36 U/L) 287 H ALT (9 - 52 U/L) 122 H Alkaline Phosphatase (<127 U/L) 263 H Total Protein (6.3 - 8.2 g/dL) 5.7 L Albumin (3.5 - 5.0 g/dL) 3.0 L Coagulation PT (9.4 - 12.5 SEC) 13.0 H INR (0.90 - 1.19) 1.24 H Hematology CBC w Diff MAN DIFF ORDERED WBC (4.8 - 10.8 /CUMM) 7.5 RBC (4.20 - 5.40 /CUMM) 3.74 L Hgb (12.0 - 16.0 G/DL) 12.9 Hct (37 - 47 %) 38.9 MCV (81.0 - 99.0 FL) 104.0 H MCH (27.0 - 31.0 PG) 34.5 H RDW (11.5 - 14.5 %) 15.9 H Plt Count (130 - 400 /CUMM) 64 L MPV (7.4 - 10.4 FL) 11.1 H Segmented Neutrophils (42.2 - 75.2 %) 52 Band Neutrophils (0.0 - 5.0 %) 3 Lymphocytes (20.5 - 51.1 %) 29 Monocytes (1.7 - 9.3 %) 14 H Eosinophils (0 - 5.0 %) 2 Nucleated RBCs (0.0 - 0.0 /100WBC) 1 H Platelet Estimate (ADEQUATE) DECREASED Poikilocytosis 1+ Anisocytosis 1+ Macrocytic Cells 1+ Target Cells 1+ Stomatocytes 2+ PUBS MCHC (33.0 - 37.0 G/DL) 33.1
--- NOTE | 2016-07-15 14:52 | NUR ---
NURSING NOTE: PT C/O NAUSEA, NO VOMITING NOTED, 018 AWARE, ZOFRAN GIVEN PER MD ORDER, WILL GIVE REPORT TO NEXT SHIFT, NEEDS IN REACH
--- NOTE | 2016-07-15 16:11 | NUR ---
MEt with patient yesterday to discuss possible aftercare options. One significant barrier for her presently, is the lack of insurance. Her authorization from [employer] for this admission is temporary nad will NOT cover aftercare. Patient reports to me today that the eligibility speacialist has met with her to initiate a permanent application. Amina is aware that she will be required to have a payment source in order to start outpatient treatmnet; she verbalizes understanding . Amina's admission was initially only authorized until yesterday; concurrent clinical provided to [facility] today and another day granted. Patient and case work aide notified. Will follow and will be available to assist with extension of authorization if needed and referral to aftercare.
--- NOTE | 2016-07-15 23:07 | CT SCAN REPORT ---
EXAMINATION: CT ABDOMEN AND PELVIS WITH CONTRAST CLINICAL INFORMATION: Ascites. Distended abdomen. Discomfort. Pain. COMPARISON: 12/17/2015 TECHNIQUE: Multidetector volumetric imaging was performed of the abdomen and pelvis before and after the IV administration of 94 mL of Optiray 320 intravenous contrast. Sagittal and coronal reformatted images were obtained on the technologist's workstation. DLP: 544 mGy-cm FINDINGS: LUNG BASES: The lung bases are clear. Bilateral breast implants are partially visualized. The visualized cardiac structures are unremarkable. LIVER, GALLBLADDER, AND BILIARY TREE: The liver is enlarged, measuring 26 cm in CC dimension. This compares to approximately 20 cm on the study from 12/17/2015. It is heterogeneously decreased in attenuation. There is a normal Contour. No focal hepatic lesion. No biliary ductal dilatation. The gallbladder is contracted containing multiple stones. This is similar to previous. No wall thickening or adjacent inflammatory changes. PANCREAS: Unremarkable. SPLEEN: Unremarkable. ADRENAL GLANDS: Unremarkable. KIDNEYS AND URETERS: The kidneys are normal in size, shape, and attenuation. No hydronephrosis, hydroureter, or calculi seen. No perinephric stranding. BLADDER: The bladder is decompressed with no gross abnormality. GASTROINTESTINAL TRACT: The stomach and small bowel are unremarkable. No dilated loops of bowel or evidence of obstruction. There is a normal appendix. There is mild colonic diverticulosis without evidence of diverticulitis. A majority of the colon is decompressed. No free air or free fluid. ABDOMINAL WALL: No significant hernia is appreciated. LYMPH NODES: Normal. VASCULAR: Unremarkable. PELVIC VISCERA: Uterus is not seen. No adnexal mass. OSSEOUS STRUCTURES: No acute or suspicious osseous abnormality. IMPRESSION: No acute findings of the abdomen or pelvis. No ascites. Hepatomegaly and hepatic steatosis. The size of the liver has increased from previous, previously measuring up to 20 cm in CC dimension. Cholelithiasis.
[2016-07-16] VITALS (7 sets, daily range): BP systolic 105–124; BP diastolic 60–86
--- NOTE | 2016-07-16 07:25 | PN- Housestaff ---
IRAM PICKENS,ABDON 07/16/16 0724: Subjective Follow-up For: Alcohol detoxification; Diselectrolytemia; Alcoholic hepatitis. Subjective: I followed up and examined the patient today. She is resting comfortably in bed , and since that she has significant abdominal distention and had a CAT scan of abdomen yesterday. She still has diarrhea. Her vitals have remained stable, CIWA score is 0, no overnight issues. Review of Systems Constitutional: Reports: see HPI. Gastrointestinal: Reports: distention. Objective Last 24 Hrs of Vital Signs/I&O Vital Signs Date Time Temp Pulse Resp B/P B/P Pulse O2 O2 Flow FiO2 Mean Ox Delivery Rate 07/16 1517 99.0 121 20 124/70 91 Room Air 07/16 1333 93 Room Air Room Air 07/16 0809 108 110/60 07/16 0721 98.1 109 20 110/86 93 07/16 0600 98.1 109 20 110/86 07/15 2153 97.6 123 19 110/82 92 Intake & Output 07/16 1600 07/16 0800 07/16 0000 Intake Total 2250 120 1150 Output Total 1081 1100 Balance 1169 120 50 Intake, IV 10 350 Intake, Oral 2240 120 800 Number 7 3 1 Bowel Movements Output, Stool 1 Output, Urine 1080 1100 Physical Exam General Appearance: Alert, Oriented X3, Cooperative, No Acute Distress Other Physical Findings: Skin: Jaundice present Neck: Supple, No JVD Cardiovascular: Regular Rate, Normal S1, Normal S2 Lungs: Clear to Auscultation, basal occassional crepts Abdomen: diminished bowel sounds, distended, non-tender Extremities: No Edema, Normal Pulses Psych: normal findings, no SI/HI Current Medications: Current Medications Sig/Connor Start time Last Medication Dose Route Stop Time Status Admin Albuterol Sulfate 3 ML Q4-PRN PRN 07/09 2130 AC 07/15 INH 1658 Ceftriaxone Sodium 1,000 MG Q24H 07/16 1600 AC 07/16 IV 1829 Cholestyramine Resin 1 PAC BID 07/15 1442 AC 07/16 PO 0955 Folic Acid 1 MG DAILY 07/09 1433 AC 07/16 PO 0955 Loperamide HCl 2 MG Q3P PRN 07/13 0945 AC 07/16 PO 0955 Lorazepam 0 Q1P PRN 07/09 1830 DC 07/10 IV 1508 Magnesium Sulfate 1 GM Q2H 07/15 1630 DC 07/15 Dextrose/Water 100 ML IV 07/15 2028 1856 Morphine Sulfate 2 MG Q6PRN PRN 07/10 0630 AC IV Multivitamins 1 TAB DAILY 07/09 1433 AC 07/16 PO 0955 Omeprazole 40 MG DAILY AC 07/13 0734 AC 07/16 PO 0600 Ondansetron HCl 4 MG Q6P PRN 07/15 1445 AC 07/15 IV 1452 Phenylephrine HCl 1 TEMI Q6P PRN 07/15 1630 AC MA Phosphate 250 MG PC AND AT BEDTIME 07/15 1300 AC 07/16 PO 07/16 2300 1828 Thiamine HCl 100 MG DAILY 07/09 1433 AC 07/16 PO 0955 Last 24 Hrs of Lab/Anand Results Last 24 Hrs of Labs/Mics: Laboratory Tests 07/16/16 0620: Anion Gap 10, Estimated GFR > 60, BUN/Creatinine Ratio 18.0, Phosphorus 2.9, Magnesium 1.9, Total Bilirubin 15.6 H, Direct Bilirubin 13.7 H, AST 140 H, ALT 81 H, Alkaline Phosphatase 204 H, Total Protein 5.5 L, Albumin 2.7 L, PT 13.7 H, INR 1.31 H, CBC w Diff MAN DIFF ORDERED, RBC 3.47 L, MCV 105.8 H, MCH 34.9 H, RDW 17.2 H, MPV 12.2 H, Segmented Neutrophils 55, Band Neutrophils 7 H, Lymphocytes 12 L, Monocytes 23 H, Eosinophils 3, Platelet Estimate VERIFIED BY SMEAR, Poikilocytosis 1+, Anisocytosis 1+, Target Cells 1+, Stomatocytes 1+, PUBS MCHC 33.0 Assessment/Plan Assessment: 55-year-old female with past medical history of right sided breast cancer, status post mastectomy, COPD, GERD, was brought in by her sister for alcohol detoxification. Patient is currently being admitted in the general medical floor: Alcohol withdrawal, detoxification completed Patient seems to have chronic alcohol-related problems, has recently started drinking heavily, more than usual, but has the will to cut down on alcohol. CIWA improved, so stopped PO Ativan, but continue IV PRN Ativan. Continue thiamine, folic acid, and multivitamins. Will consider starting her on acamprosate 666 mg 3 times daily per Psychiatry consult. * Social works consult has been placed, will follow. * Appreciate Psychiatry services consult. Possible refeeding syndrome with hypokalemia, hypophosphatemia and hypomagnesemia Reports intense tiredness, is feeling slightly better today. Potassium has improved, but phos and Mag still slowly getting better. * She was aggressively repleted orally and intravenously * Will closely monitor * Repeat BEP, Phos and Mag tomorrow. * Diarrhea secondary to irritable bowel syndrome can also be one of the causes of decreased electrolytes. Expected to normalize after her bowel symptoms are in control. Alcoholic liver disease, hepatitis, ascites * Patient's Total bilirubin is stable today, 14.1 today but AST, ALT, alkaline phosphatase are starting to trend down. * Usg of liver suggestive of hepatic steatosis with free fluid in the RUQ. Non- tender ruling out SBP clinically. * CT abd-pelvis done yesterday did not show bursitis, but demonstrated hepatomegaly and hepatic steatosis. The size of the liver has increased up to 20 cm in CC dimension. * Patient's abdomen is distended but not tender, thus has low suspicion for spontaneous bacterial peritonitis. IBS * Continues to have diarrhea. Mg supplement changed to IV form; stool culture nagative sofar, continue imodium per GI * C.diff negative * Fecal elastase, fecal fat, ordered per GI consultation. * Patient's stool samples later today have been negative for blood grossly. Overnight stool with blood mixed in it could be due to hemorrhoids. * GI consult appreciated. Malnutrition * Patient's BMI is 25.8 but her albumin is 2.7, which was 4.0 on July 09, and the patient has had severe electrolyte disbalance most possibly due to alcohol or malabsorption, or diarrhea/IBS. In any case, patient is malnourished and would benefit from nutritional consult. Hypoxia * Patient is breathing normally on room air, hypoxia has resolved. Thrombocytopenia * Platelet count trending 131 today, was 119, 96, 64, 57, 58, 72, 84. * Likely due to alcohol * No active bleeding * Will continue to monitor Clinical depression/Major Depressive Disorder, no SI/HI * Not starting any psychotropics per Psychiatric consult currently. They will reassess once she is detoxified. #Diet: Regular diet #DVT prophylaxis: ALPS #CODE STATUS is full code Problem List: 1. Alcohol dependence with withdrawal 2. Alcoholic hepatitis 3. Jaundice 4. IBS (irritable bowel syndrome) 5. Diarrhea 6. Hypokalemia 7. Hypomagnesemia 8. Hypophosphatemia 9. Hemorrhoid 10. Ascites Pain Ratin Pain Location: - Pain Goal: Pain 4 or less Pain Plan: prn Tomorrow's Labs & Rationales: CBC, BEP, Mg, Phos, LFT, INR SHANIKA MULLEN MD 07/16/16 1440: Attending MD Review Statement Attending Statement Attending MD Statement: examined this patient, discuss w/resident/PA/TOURIST HOME KEEPER, agreed w/resident/PA/TOURIST HOME KEEPER, reviewed EMR data (avail), discussed with nursing, reviewed images, amended to note Attending Assessment/Plan: Ms. Villatoro appears more alert and comfortable today. She still notes diarrhea however the frequency has improved. She notes no further bleeding. She states she did ambulate today without difficulty. She is afebrile. Heart rate is borderline tachycardic. Respiration, BP, and oxygen saturations are stable. Pulmonary exam is clear. Cardiac exam reveals a regular rate and rhythm which is as above mildly tachycardic. Her abdomen is softly distended with normal bowel sounds. There is mild tenderness to deep palpation in the right upper quadrant. WBC has risen to 13,500 today. Potassium, phosphate, and magnesium are now therapeutic. Urine culture is growing greater than 100,000 colonies of gram- negative rods. Her abdominal CT scan shows hepatomegaly and gallstones without evidence of cholecystitis or ductal changes. We will continue to monitor her CIWA scores and treat her alcohol withdrawal syndrome appropriately. We are continuing her Multivites, folate, and thiamine. We will continue cholestyramine which appears to have improved diarrhea. We will continue to track her liver functions for her alcoholic hepatitis and her electrolytes and intervene appropriately. We will start ceftriaxone for her urinary tract infection. We will continue physical therapy.
[2016-07-16 08:03] LABS: HEMATOCRIT 36.7 % (37-47); MEAN CORPUSCULAR HGB 34.9 PG (27.0-31.0); MEAN CORPUSCULAR VOLUME 105.8 FL (81.0-99.0); MEAN PLATELET VOLUME 12.2 FL (7.4-10.4); PLATELET COUNT 131 /CUMM (130-400); RBC DISTRIBUTION WIDTH 17.2 % (11.5-14.5); RED BLOOD CELL CT 3.47 /CUMM (4.20-5.40); WHITE BLOOD CELL COUNT 13.1 /CUMM (4.8-10.8)
--- NOTE | 2016-07-16 08:10 | NUR ---
NURSING NOTE: HR 108. ABDON PICKENS AWARE, PT DENIES DISTRESS OR CHEST PAIN. SAFETY MAINTANED, BED ALARM IN PLACE, NEEDS IN REACH
[2016-07-16 08:17] LABS: PT 13.7 SEC (9.4-12.5)
--- NOTE | 2016-07-16 13:00 | NUR ---
NURSING NOTE: REPORT GIVEN TO REN NEXT SHIFT RN AT THIS TIME, PT REMAINS, AWAKE, A/FORGETFUL AT TIMES, IMPULSIVE AT TIMES, BED ALARM IN PLACE AND WORKING AT THIS TIME. PT REMAINS JAUNDICE, DENIES COMPLAINTS. BMS MUCOUSY BUT SMALLER THAN YESTERDAY; ABDOMEN DISTENDED, DENIES PAIN. IV PATENT, NEEDS IN REACH, SAFETY MAINTAINED.
--- NOTE | 2016-07-17 04:29 | NUR ---
NURSE NOTE: PT HAD LIQUID STOOL, BRIGHT RED BLOOD. MD MADE AWARE AT THIS TIME. WILL CONTINUE TO MONITOR.
[2016-07-17 06:48] VITALS: BP 108/73
[2016-07-17 08:19] LABS: HEMATOCRIT 36.3 % (37-47); MEAN CORPUSCULAR HGB 34.9 PG (27.0-31.0); MEAN CORPUSCULAR HGB CONC 33.2 G/DL (33.0-37.0); MEAN CORPUSCULAR VOLUME 105.4 FL (81.0-99.0); MEAN PLATELET VOLUME 11.9 FL (7.4-10.4); PLATELET COUNT 188 /CUMM (130-400); RBC DISTRIBUTION WIDTH 17.2 % (11.5-14.5); RED BLOOD CELL CT 3.44 /CUMM (4.20-5.40); WHITE BLOOD CELL COUNT 14.7 /CUMM (4.8-10.8)
[2016-07-17 08:38] LABS: PT 13.9 SEC (9.4-12.5)
--- NOTE | 2016-07-17 08:43 | PN- Housestaff ---
Subjective Follow-up For: Alcohol detoxification; Dyselectrolytemia; Alcoholic hepatitis. Subjective: I followed up and examined the patient today. She is resting comfortably in bed , she has significant abdominal distention, and had mucousy stools with yoandy bright red blood which was painless. This is however not new to her. Her vitals have remained stable. Of note, she has been tachycardic since admission which was reassessed using EKG that showed sinus tachycardia again. No signs of alcohol withdrawal. Review of Systems Constitutional: Reports: see HPI. Gastrointestinal: Reports: diarrhea (mucosy), distention, bloody stool. Objective Last 24 Hrs of Vital Signs/I&O Vital Signs Date Time Temp Pulse Resp B/P B/P Pulse O2 O2 Flow FiO2 Mean Ox Delivery Rate 07/17 1459 98.8 118 20 120/78 94 Room Air 07/17 1346 98.8 112 20 120/78 94 Room Air 07/17 1000 100 20 110/80 07/17 0648 99.5 108 18 108/73 94 Room Air 07/17 0000 Room Air 07/16 2351 99.5 122 20 105/71 92 Room Air Intake & Output 07/17 1600 07/17 0800 07/17 0000 Intake Total 810 480 480 Output Total 400 Balance 410 480 480 Intake, IV 10 Intake, Oral 800 480 480 Number 3 2 2 Bowel Movements Output, Urine 400 Physical Exam General Appearance: Alert, Oriented X3, Cooperative, No Acute Distress Other Physical Findings: Clinical findings same as yesterday's. Current Medications: Current Medications Sig/Connor Start time Last Medication Dose Route Stop Time Status Admin Albuterol Sulfate 2 PUF Q4 HRS NEEDED PRN 07/16 1915 AC INH Ceftriaxone Sodium 1,000 MG Q24H 07/16 1600 AC 07/17 IV 1605 Cholestyramine Resin 1 PAC BID 07/15 1442 AC 07/17 PO 2111 Folic Acid 1 MG DAILY 07/09 1433 AC 07/17 PO 1000 Loperamide HCl 2 MG Q3P PRN 07/13 0945 AC 07/17 PO 0543 Morphine Sulfate 2 MG Q6PRN PRN 07/10 0630 DC IV Multivitamins 1 TAB DAILY 07/09 1433 AC 07/17 PO 1000 Omeprazole 40 MG DAILY AC 07/13 0734 AC 07/17 PO 0542 Ondansetron HCl 4 MG Q6P PRN 07/15 1445 AC 07/15 IV 1452 Phenylephrine HCl 1 TEMI Q6P PRN 07/15 1630 AC MA Phosphate 250 MG PC AND AT BEDTIME 07/15 1300 DC 07/16 PO 07/16 2300 2119 Thiamine HCl 100 MG DAILY 07/09 1433 AC 07/17 PO 1000 Last 24 Hrs of Lab/Anand Results Last 24 Hrs of Labs/Mics: Laboratory Tests 07/17/16 0604: Anion Gap 10, Estimated GFR > 60, BUN/Creatinine Ratio 25.0, Phosphorus 3.7, Magnesium 1.9, PT 13.9 H, INR 1.33 H, CBC w Diff MAN DIFF ORDERED, RBC 3.44 L , MCV 105.4 H, MCH 34.9 H, RDW 17.2 H, MPV 11.9 H, Segmented Neutrophils 57, Band Neutrophils 9 H, Lymphocytes 17 L, Monocytes 14 H, Basophils 1, Metamyelocytes 2 H, Platelet Estimate ADEQUATE, Polychromasia 2+, Hypochromic- Microcytic 1+, Macrocytic Cells 2+, PUBS MCHC 33.2 Microbiology 07/17 1806 STOOL: Clostridium difficile Toxin A & B - RECD 07/17 1806 STOOL: Stool Culture - RECD Assessment/Plan Assessment: 55-year-old female with past medical history of right sided breast cancer, status post mastectomy, COPD, GERD, was brought in by her sister for alcohol detoxification. Patient is currently being admitted in the general medical floor: Alcohol withdrawal, detoxification completed Patient seems to have chronic alcohol-related problems, has recently started drinking heavily, more than usual, but has the will to cut down on alcohol. CIWA improved, so stopped PO Ativan, but continue IV PRN Ativan. Continue thiamine, folic acid, and multivitamins. Will consider starting her on acamprosate 666 mg 3 times daily per Psychiatry consult, if required. * Social works consult has been placed, will follow. * Appreciate Psychiatry services consult. Possible refeeding syndrome with hypokalemia, hypophosphatemia and hypomagnesemia Reports intense tiredness, is feeling slightly better today. Potassium has improved, but phos and Mag still slowly getting better. * She was aggressively repleted orally and intravenously * Will closely monitor * Repeat BEP, Phos and Mag tomorrow. * Diarrhea secondary to irritable bowel syndrome can also be one of the causes of decreased electrolytes. Expected to normalize after her bowel symptoms are in control. Alcoholic liver disease, hepatitis, ascites * Patient's Total bilirubin is stable today, 14.1 today but AST, ALT, alkaline phosphatase are starting to trend down. * Usg of liver suggestive of hepatic steatosis with free fluid in the RUQ. Non- tender ruling out SBP clinically. * CT abd-pelvis done yesterday did not show bursitis, but demonstrated hepatomegaly and hepatic steatosis. The size of the liver has increased up to 20 cm in CC dimension. * Patient's abdomen is distended but not tender, thus has low suspicion for spontaneous bacterial peritonitis. IBS * Continues to have diarrhea. Mg supplement changed to IV form; stool culture nagative sofar, continue imodium per GI * C.diff sent earlier was negative. * Fecal elastase, fecal fat, ordered per GI consultation. * Patient's stool samples later today have been negative for blood grossly. Overnight stool with blood mixed in it could be due to hemorrhoids. * GI consult appreciated. Bright red blood per rectum Patient has had on and off episodes of bright red blood per rectum, this time with mucus. However, since the patient was started on ceftriaxone yesterday, and the patient has been in the hospital for a few days already, C. difficile should be ruled out. Stool culture also sent today keeping in mind that it could be infective as well. These tests were sent after consulting Benson Bradley MD from gastroenterology services over phone today. Unless the patient's vitals are unstable, Dr. Bradley will see the patient tomorrow. * We'll monitor vitals closely * Inform gastroenterology services immediately if patient starts bleeding profusely or there is a significant change in vital statistics. Malnutrition * Patient's BMI is 25.8 but her albumin is 2.7, which was 4.0 on July 09, and the patient has had severe electrolyte disbalance most possibly due to alcohol or malabsorption, or diarrhea/IBS. In any case, patient is malnourished and would benefit from nutritional consult. Hypoxia * Patient is breathing normally on room air, hypoxia has resolved. Thrombocytopenia * Platelet count trending 188 today, was 131, 119, 96, 64, 57, 58, 72, 84. * Likely due to alcohol * No active bleeding * Will continue to monitor Clinical depression/Major Depressive Disorder, no SI/HI * Not starting any psychotropics per Psychiatric consult currently. They will reassess once she is detoxified. #Diet: Regular diet #DVT prophylaxis: ALPS #CODE STATUS is full code Problem List: 1. IBS (irritable bowel syndrome) 2. Alcoholic hepatitis 3. Alcohol dependence with withdrawal 4. GERD (gastroesophageal reflux disease) 5. COPD (chronic obstructive pulmonary disease) 6. Hemorrhoid 7. Ascites 8. Diarrhea Pain Ratin Pain Location: - Pain Goal: Pain 4 or less Pain Plan: prn Tomorrow's Labs & Rationales: INR, CBC, BEP, LFT, Mg, phos
[2016-07-17 10:00] VITALS: BP 110/80
--- NOTE | 2016-07-17 11:45 | NUR ---
NURSING NOTE: PT HAD SMALL STOOL IN BEDSIDE COMMODE; MUCOUSY WHITE "OATMEAL" LIKE BUT ALSO BRIGHT RED BLOOD; NO CLOTS, APPROX 75M. ABDON PICKENS 084 CALLED AND MADE AWARE, CAME TO LOOK AT IT. PT DENIES COMPLAINTS, PATTERNATOR TO CALL GI. PT BACK TO BED, BED ALARM IN PLACE, SAFETY MAINITAINED
[2016-07-17 13:46] VITALS: BP 120/78
--- NOTE | 2016-07-17 13:47 | NUR ---
NURSING NOTE: PT HAD ANOTHER BM, MOSTLY BLOODY; SOME SMALL AMOUNT OF MUCOUS ALSO NOTED. BP 120/78, HR 112, ABDON [employer] CALLED AND MADE AWARE, PT DENIES COMPLAINTS, FRIEND AT BEDSIDE,BED ALARM IN PLACE, NEEDS IN REACH. NO FURTHER ORDERS AT THIS TIME.
[2016-07-17 14:59] VITALS: BP 120/78
--- NOTE | 2016-07-17 16:25 | NUR ---
NURSING NOTE; AT THIS TIME PT NOTED TO HAVE ANOTHER BM, SOME MUCOUS NOTED, ABOUT 50ML OF BLOOD NOTED; PT HAS NO COMPLAINTS AT THIS TIME; SHOW CARD LETTERER #[id number] AWARE, SAFETY MAINTAINED, CALL GONZALEZ IN REACH
--- NOTE | 2016-07-17 17:24 | PN- Att Addend ---
Attending Addendum Attending Brief Note Covering attending note Patient is alert and oriented has no shakes or tremors vital signs are stable. Overnight had some loose bowel movements and some Ed blood through the rectum of times. Her H&H hasn't dropped much will have GI reevaluate the patient, monitor labs Stool cultures have been negative so far 24 TOTALS 07/17 0000 07/16 0000 Intake Total 2850 3600 Output Total 1081 1850 Balance 1769 1750 Intake, IV 10 1950 Intake, Oral 2840 1650 Number 12 5 Bowel Movements Output, Stool 1 Output, Urine 1080 1850 Current Medications Sig/Connor Start time Last Medication Dose Route Stop Time Status Admin Albuterol Sulfate 2 PUF Q4 HRS NEEDED PRN 07/16 1915 AC INH Albuterol Sulfate 3 ML Q4-PRN PRN 07/09 2130 DC 07/16 INH 1900 Ceftriaxone Sodium 1,000 MG Q24H 07/16 1600 AC 07/17 IV 1605 Cholestyramine Resin 1 PAC BID 07/15 1442 AC 07/17 PO 1000 Folic Acid 1 MG DAILY 07/09 1433 AC 07/17 PO 1000 Loperamide HCl 2 MG Q3P PRN 07/13 0945 AC 07/17 PO 0543 Lorazepam 0 Q1P PRN 07/09 1830 DC 07/10 IV 1508 Morphine Sulfate 2 MG Q6PRN PRN 07/10 0630 DC IV Multivitamins 1 TAB DAILY 07/09 1433 AC 07/17 PO 1000 Omeprazole 40 MG DAILY AC 07/13 0734 AC 07/17 PO 0542 Ondansetron HCl 4 MG Q6P PRN 07/15 1445 AC 07/15 IV 1452 Phenylephrine HCl 1 TEMI Q6P PRN 07/15 1630 AC UT Phosphate 250 MG PC AND AT BEDTIME 07/15 1300 DC 07/16 PO 07/16 2300 2119 Ramelteon 8 MG ONCE ONE 07/16 2100 DC 07/16 PO 07/16 2101 2120 Thiamine HCl 100 MG DAILY 07/09 1433 AC 07/17 PO 1000 Laboratory Tests 07/17/16 0604: Anion Gap 10, Estimated GFR > 60, BUN/Creatinine Ratio 25.0, Phosphorus 3.7, Magnesium 1.9, PT 13.9 H, INR 1.33 H, CBC w Diff MAN DIFF ORDERED, RBC 3.44 L , MCV 105.4 H, MCH 34.9 H, RDW 17.2 H, MPV 11.9 H, Segmented Neutrophils 57, Band Neutrophils 9 H, Lymphocytes 17 L, Monocytes 14 H, Basophils 1, Metamyelocytes 2 H, Platelet Estimate ADEQUATE, Polychromasia 2+, Hypochromic- Microcytic 1+, Macrocytic Cells 2+, PUBS MCHC 33.2 07/16/16 0620: Anion Gap 10, Estimated GFR > 60, BUN/Creatinine Ratio 18.0, Phosphorus 2.9, Magnesium 1.9, Total Bilirubin 15.6 H, Direct Bilirubin 13.7 H, AST 140 H, ALT 81 H, Alkaline Phosphatase 204 H, Total Protein 5.5 L, Albumin 2.7 L, PT 13.7 H, INR 1.31 H, CBC w Diff MAN DIFF ORDERED, RBC 3.47 L, MCV 105.8 H, MCH 34.9 H, RDW 17.2 H, MPV 12.2 H, Segmented Neutrophils 55, Band Neutrophils 7 H, Lymphocytes 12 L, Monocytes 23 H, Eosinophils 3, Platelet Estimate VERIFIED BY SMEAR, Poikilocytosis 1+, Anisocytosis 1+, Target Cells 1+, Stomatocytes 1+, PUBS MCHC 33.0 07/15/161824: Urinalysis LIGHT H, Urine Color ORANG H, Urine Clarity HAZY H, Urine pH 6.5, Ur Specific [place] 1.015, Urine Protein 30 H, Urine Ketones TRACE H, Urine Nitrite POS H, Urine Bilirubin POS@ICTO H, Urine Urobilinogen 1.0, Ur Leukocyte Esterase NEG, Ur Microscopic SEDIMENT EXAMINED, Urine RBC RARE, Urine WBC 3-5 H, Ur Epithelial Cells MOD H, Urine Bacteria MANY H, Urine Mucus FEW, Urine Hemoglobin NEG, Urine Glucose NEG Microbiology 07/15 1824 URINE ROUT: Urine Culture - COMP ESCHERICHIA COLI Microbiology Date/Time Procedure - Status Source Growth 07/17 1642 Clostridium difficile Toxin A & B - ORD STOOL 07/17 1642 Stool Culture - ORD STOOL
--- NOTE | 2016-07-17 18:10 | NUR ---
NURSING NOTE; PT HAD ANOTHER BM, BM NOTED TO BE MUCOUSY WITH 50ML OF BLOOD, #084 AWARE, STOOL AND CDIFF CULTURE SENT, PT DENIES ANY COMPLAINT AT THIS TIME, VSS, SAFETY MAINTAINED, CALL GONZALEZ IN REACH
[2016-07-17 22:30] VITALS: BP 120/64
[2016-07-18] VITALS (10 sets, daily range): BP systolic 106–120; BP diastolic 64–80
--- NOTE | 2016-07-18 01:00 | NUR ---
NURSING NOTE: PATIENTS HR 112 AT THIS TIME; OTHER VSS. PT RESTING IN BED IN NO ACUTE DISTRESS. MD RESENDIZ MADE AWARE. WILL CONTINUE TO MONITOR.
--- NOTE | 2016-07-18 03:32 | NUR ---
NURSING NOTE: PATIENT HAS HAD 3 LIQUID BLOODY BM'S WITH MUCOUS SINCE 2300 THIS EVENING. PATIENT REPORTS NO LIGHT HEADEDNESS OR DIZZINESS, RESTING IN BED, NO ACUTE DISTRESS PAIN 0/10, VSS. MD GIL MADE AWARE, PLAN IS TO FOLLOW UP WITH MORNING LABS. WILL CONTINUE TO MONITOR.
--- NOTE | 2016-07-18 05:40 | NUR ---
NURSING NOTE: PATIENT C/O 6/10 LEFT SIDED ABDOMINAL PAIN AT THIS TIME. MD RESENDIZ MADE AWARE; STATED HE WILL BE ON THE FLOOR TO SEE THE PATIENT SHORTLY. INFORMED PATIENT, WILL CONTINUE TO MONITOR.
[2016-07-18 08:31] LABS: HEMATOCRIT 35.1 % (37-47); MEAN CORPUSCULAR VOLUME 106.1 FL (81.0-99.0); MEAN PLATELET VOLUME 11.7 FL (7.4-10.4); PLATELET COUNT 234 /CUMM (130-400); RBC DISTRIBUTION WIDTH 17.3 % (11.5-14.5); RED BLOOD CELL CT 3.31 /CUMM (4.20-5.40)
--- NOTE | 2016-07-18 08:45 | PN- Housestaff ---
Subjective Follow-up For: Alcohol detoxification, resolved; Dyselectrolytemia, resolving; Alcoholic hepatitis; Abdominal distension. Subjective: I followed up and examined the patient today. She is resting comfortably in bed. She has significant abdominal distention, is continuing to have mucousy stools with yoandy bright red blood, which is painless. The frequency is decreasing though. Her vitals continued to be stable. Review of Systems Constitutional: Reports: see HPI. Gastrointestinal: Reports: diarrhea, bloody stool. Objective Last 24 Hrs of Vital Signs/I&O Vital Signs Date Time Temp Pulse Resp B/P B/P Pulse O2 O2 Flow FiO2 Mean Ox Delivery Rate 07/18 1446 99.3 112 18 110/68 93 Room Air / 1200 98.9 98 20 118/78 96 Room Air / 0756 98.7 99 20 106/68 94 Room Air 06/ 0000 98.5 112 18 120/64 07/17 2230 98.5 112 18 120/64 94 Room Air Intake & Output 07/18 1600 07/18 0800 07/18 0000 Intake Total 910 490 900 Output Total 400 250 450 Balance 510 240 450 Intake, IV 10 10 Intake, Oral 900 480 900 Number 3 5 5 Bowel Movements Output, Urine 400 250 450 Physical Exam General Appearance: Alert, Oriented X3, Cooperative, No Acute Distress Other Physical Findings: Patient today has right upper quadrant tenderness, abdomen is still distended, rest of examination is just the same as yesterday's. Current Medications: Current Medications Sig/Connor Start time Last Medication Dose Route Stop Time Status Admin Albuterol Sulfate 2 PUF Q4 HRS NEEDED PRN 07/16 1915 AC INH Ceftriaxone Sodium 1,000 MG Q24H 07/16 1600 AC 07/17 IV 1605 Cholestyramine Resin 1 PAC BID 07/15 1442 AC 07/18 PO 0921 Folic Acid 1 MG DAILY 07/09 1433 AC 07/18 PO 0921 Loperamide HCl 2 MG Q3P PRN 07/13 0945 AC 07/18 PO 0529 Multivitamins 1 TAB DAILY 07/09 1433 AC 07/18 PO 0921 Omeprazole 40 MG DAILY AC 07/13 0734 AC 07/18 PO 0529 Ondansetron HCl 4 MG Q6P PRN 07/15 1445 AC 07/15 IV 1452 Phenylephrine HCl 1 TEMI Q6P PRN 07/15 1630 AC AL Thiamine HCl 100 MG DAILY 07/09 1433 AC 07/18 PO 0921 Last 24 Hrs of Lab/Anand Results Last 24 Hrs of Labs/Mics: Laboratory Tests 07/18/16 0620: Anion Gap 10, Estimated GFR > 60, BUN/Creatinine Ratio 20.0, Phosphorus 3.2, Magnesium 1.9, Total Bilirubin 18.7 H, Direct Bilirubin 16.5 H, AST 126 H, ALT 67 H, Alkaline Phosphatase 180 H, Total Protein 5.3 L, Albumin 2.5 L, PT 14.1 H, INR 1.35 H, CBC w Diff MAN DIFF ORDERED, RBC 3.31 L, MCV 106.1 H, MCH 35.0 H, RDW 17.3 H, MPV 11.7 H, Segmented Neutrophils 69, Band Neutrophils 12 H, Lymphocytes 4 L, Monocytes 13 H, Basophils 1, Metamyelocytes 1, Platelet Estimate ADEQUATE, Hypochromic-Microcytic 1+, Anisocytosis 1+, Macrocytic Cells 2+, Stomatocytes 2+, PUBS MCHC 33.0 Microbiology 07/17 1806 STOOL: Clostridium difficile Toxin A & B - RES 07/17 1806 STOOL: Stool Culture - RES Assessment/Plan Assessment: 55-year-old female with past medical history of right sided breast cancer, status post mastectomy, COPD, GERD, was brought in by her sister for alcohol detoxification. Patient is currently being admitted in the general medical floor: Alcoholic liver disease, hepatitis * Patient's Total bilirubin is stable today, 18.7, which is increasing daily but AST, ALT, alkaline phosphatase are starting to trend down. * USG of liver suggestive of hepatic steatosis with free fluid in the RUQ. Non- tender ruling out SBP clinically. * CT abd-pelvis did not show ascites, but demonstrated hepatomegaly and hepatic steatosis. The size of the liver has increased up to 20 cm in CC dimension. * Patient's abdomen is distended but not tender, thus has low suspicion for spontaneous bacterial peritonitis. This AM, pt had tenderness on palpating RUQ, but this is non-specific. * GI service consulted. Awaiting recommendations. IBS * Continues to have diarrhea, but it is blood dmixed now. Electrolytes are getting better. Stool culture nagative from last time and so has been C diff. Tuesday's stool culture results ending. Fecal elastase, fecal fat, ordered per GI consultation. Peding results. * GI consult appreciated. Bright red blood per rectum Patient has had on and off episodes of bright red blood per rectum, this time with mucus. C. difficile ruled out. Stool culture pending. Vitals have been stable, and we'll monitor her closely. * Inform gastroenterology services immediately if patient starts bleeding profusely or there is a significant change in vital statistics. * She is undergoing lower GI endoscopy tomorrow morning, possibly upper GI as well. NPO from [place]. Alcohol withdrawal, detoxification completed Patient seems to have chronic alcohol-related problems, has recently started drinking heavily, more than usual, but has the will to cut down on alcohol. CIWA improved, so stopped PO Ativan, but continue IV PRN Ativan. Continue thiamine, folic acid, and multivitamins. Will consider starting her on acamprosate 666 mg 3 times daily per Psychiatry consult, if required. * Social works consult has been placed, will follow. * Appreciate Psychiatry services consult. Possible refeeding syndrome with dyselectrolytemia, improved Reported intense tiredness, is feeling better today. Potassium, Phos and Mag improved. * She was aggressively repleted orally and intravenously * Will closely monitor * Repeat BEP, Phos and Mag tomorrow. * Diarrhea secondary to irritable bowel syndrome can also be one of the causes of decreased electrolytes. Expected to normalize after her bowel symptoms are in control. Malnutrition * Patient's BMI is 25.8 but her albumin is 2.7, which was 4.0 on July 09, and the patient has had severe electrolyte disbalance most possibly due to alcohol or malabsorption, or diarrhea/IBS. In any case, patient is malnourished and would benefit from nutritional consult. Hypoxia * Patient is breathing normally on room air, hypoxia has resolved. Thrombocytopenia * Platelet count trending 234 today, was 188, 131, 119, 96, 64, 57, 58, 72, 84. * Likely due to alcohol * No active bleeding * Will continue to monitor Clinical depression/Major Depressive Disorder, no SI/HI * Not starting any psychotropics per Psychiatric consult currently. They will reassess once she is detoxified. #Diet: Regular diet #DVT prophylaxis: ALPS #CODE STATUS is full code Problem List: 1. IBS (irritable bowel syndrome) 2. Diarrhea 3. BRBPR (bright red blood per rectum) 4. Alcohol dependence with withdrawal Pain Ratin Pain Location: RUQ Pain Goal: Pain 4 or less Pain Plan: prn Tomorrow's Labs & Rationales: CBC, BEP, INR, LFT
[2016-07-18 09:09] LABS: PT 14.1 SEC (9.4-12.5)
--- NOTE | 2016-07-18 09:11 | NUR ---
NURSING NOTE: PT HAD A BLOODY BM, APPROX 75ML. PT DENIES COMPLAINTS, BALYEE MOD 158 CALLED AND MADE AWARE, NO FURTHER ORDERS AT THIS TIME. NEEDS IN REACH, BED ALARM ON
--- NOTE | 2016-07-18 14:45 | NUR ---
NURSING NOTE: BP 110/68, HR 112, 084 MADE AWARE, NO FURTHER ORDERS AT THIS TIME. PT DENIES COMPLAINTS.
--- NOTE | 2016-07-18 14:55 | PN- Att Addend ---
Attending Addendum Attending Brief Note Covering attending note Patient comfortable in bed, at the bedside my stated she still had some blood with her stools. Temp max 99 3, the rest of the vital signs are stable with no major changes on physical her H&H 11.6 and 30 5.1H count 234,000, INR 1.35 Stool cultures showed mixed maurilio and negative for C. difficile Current Medications Sig/Connor Start time Last Medication Dose Route Stop Time Status Admin Albuterol Sulfate 2 PUF Q4 HRS NEEDED PRN 07/16 1915 AC INH Ceftriaxone Sodium 1,000 MG Q24H 07/16 1600 AC 07/17 IV 1605 Cholestyramine Resin 1 PAC BID 07/15 1442 AC 07/18 PO 0921 Folic Acid 1 MG DAILY 07/09 1433 AC 07/18 PO 0921 Loperamide HCl 2 MG Q3P PRN 07/13 0945 AC 07/18 PO 0529 Multivitamins 1 TAB DAILY 07/09 1433 AC 07/18 PO 0921 Omeprazole 40 MG DAILY AC 07/13 0734 AC 07/18 PO 0529 Ondansetron HCl 4 MG Q6P PRN 07/15 1445 AC 07/15 IV 1452 Phenylephrine HCl 1 TEMI Q6P PRN 07/15 1630 AC AL Thiamine HCl 100 MG DAILY 07/09 1433 AC 07/18 PO 0921 Laboratory Tests 07/18/16 0620: Anion Gap 10, Estimated GFR > 60, BUN/Creatinine Ratio 20.0, Phosphorus 3.2, Magnesium 1.9, Total Bilirubin 18.7 H, Direct Bilirubin 16.5 H, AST 126 H, ALT 67 H, Alkaline Phosphatase 180 H, Total Protein 5.3 L, Albumin 2.5 L, PT 14.1 H, INR 1.35 H, CBC w Diff MAN DIFF ORDERED, RBC 3.31 L, MCV 106.1 H, MCH 35.0 H, RDW 17.3 H, MPV 11.7 H, Segmented Neutrophils 69, Band Neutrophils 12 H, Lymphocytes 4 L, Monocytes 13 H, Basophils 1, Metamyelocytes 1, Platelet Estimate ADEQUATE, Hypochromic-Microcytic 1+, Anisocytosis 1+, Macrocytic Cells 2+, Stomatocytes 2+, PUBS MCHC 33.0 07/17/16 0604: Anion Gap 10, Estimated GFR > 60, BUN/Creatinine Ratio 25.0, Phosphorus 3.7, Magnesium 1.9, PT 13.9 H, INR 1.33 H, CBC w Diff MAN DIFF ORDERED, RBC 3.44 L , MCV 105.4 H, MCH 34.9 H, RDW 17.2 H, MPV 11.9 H, Segmented Neutrophils 57, Band Neutrophils 9 H, Lymphocytes 17 L, Monocytes 14 H, Basophils 1, Metamyelocytes 2 H, Platelet Estimate ADEQUATE, Polychromasia 2+, Hypochromic- Microcytic 1+, Macrocytic Cells 2+, PUBS MCHC 33.2 Microbiology Date/Time Procedure - Status Source Growth 07/17 1806 Clostridium difficile Toxin A & B - RES STOOL 07/17 1806 Stool Culture - RES STOOL Vital Signs Date Time Temp Pulse Resp B/P B/P Pulse O2 O2 Flow FiO2 Mean Ox Delivery Rate 07/18 1446 99.3 112 18 110/68 93 Room Air 07/18 1200 98.9 98 20 118/78 96 Room Air 07/18 0756 98.7 99 20 106/68 94 Room Air Intake & Output 07/18 1600 Intake Total 910 Output Total 400 Balance 510 Intake, IV 10 Intake, Oral 900 Number 3 Bowel Movements Output, Urine 400
--- NOTE | 2016-07-18 15:02 | PN- Gastroenterology ---
Assessment/Plan Assessment/Recommendations: 1. Alcoholic hepatitis/cirrhosis. No evident ascites or encephalopathy. Marked jaundice, mild coagulopathy. Blood per rectum may be from rectal varices or internal hemorrhoids. 2. Hematochezia. As above. Mucus, pain, diarrhea; rule out colitis. No substantial drop in hemoglobin. Recommendations: 1. Follow daily LFTs and INR and would continue to observe off of steroids 2. Use benzodiazepenes as needed for etoh withdrawal symptoms 3. Social service consult for etoh abuse 4. Check stool studies to look for fecal fat and fecal elastase 5. Would discontinue oral magnesium and if supplementation is needed would recommend giving it IV as PO mag can lead to diarrhea. 5. Continue omeprazole as needed for heartburn. 6. Low sodium diet as tolerated. 7. Use prep H or anusol suppositories as needed for any further rectal bleeding 8.. Follow daily CBC and transfuse as needed to keep hgb > 8. 9. Flexible sigmoidoscopy tomorrow (plus/minus EGD; defer to Dr. Bruno). Nothing by mouth after midnight. 2 fleets enemas spinner continuous to procedure. Subjective Subjective: Continues to have diarrhea. Describes blood per rectum frequently. Nurse also describes mucus. She has developed left sided abdominal pain. There's been no nausea, vomiting, indigestion, or fever. Objective Vital Signs and I&Os Vital Signs Date Time Temp Pulse Resp B/P B/P Pulse O2 O2 Flow FiO2 Mean Ox Delivery Rate 07/18 1446 99.3 112 18 110/68 93 Room Air 06/04 1200 98.9 98 20 118/78 96 Room Air / 0756 98.7 99 20 106/68 94 Room Air 06/04 0000 98.5 112 18 120/64 06/03 2230 98.5 112 18 120/64 94 Room Air 06/03 1459 98.8 118 20 120/78 94 Room Air Intake & Output 07/18 1600 /04 0400 / 1600 / 0400 / 1600 06/ 0400 Intake Total 7153 567 2436 480 2370 1150 Output Total 650 272 183 2260 1100 Balance 750 450 308 404 1636 50 Intake, IV 20 10 10 350 Intake, Oral 9291 905 7526 480 2360 800 Number 5 8 5 2 8 3 Bowel Movements Output, Stool 1 Output, Urine 650 632 104 5148 1100 Physical Exam: No apparent distress, normal cognition. Sclera are icteric. No oropharyngeal lesion. Multiple spider telangiectasias. Abdomen is obese, soft and diffusely tender. Extremities with 1+ edema bilaterally. Current Medications: Current Medications Sig/Connor Start time Last Medication Dose Route Stop Time Status Admin Albuterol Sulfate 2 PUF Q4 HRS NEEDED PRN 07/16 1915 AC INH Ceftriaxone Sodium 1,000 MG Q24H 07/16 1600 AC 07/17 IV 1605 Cholestyramine Resin 1 PAC BID 07/15 1442 AC 07/18 PO 0921 Folic Acid 1 MG DAILY 07/09 1433 AC 07/18 PO 0921 Loperamide HCl 2 MG Q3P PRN 07/13 0945 AC 07/18 PO 0529 Multivitamins 1 TAB DAILY 07/09 1433 AC 07/18 PO 0921 Omeprazole 40 MG DAILY AC 07/13 0734 AC 07/18 PO 0529 Ondansetron HCl 4 MG Q6P PRN 07/15 1445 AC 07/15 IV 1452 Phenylephrine HCl 1 TEMI Q6P PRN 07/15 1630 AC WI Thiamine HCl 100 MG DAILY 07/09 1433 AC 07/18 PO 0921 Results Pertinent Lab Results: Laboratory Tests 07/18 07/17 0620 0604 Chemistry Sodium (137 - 145 mmol/L) 135 L 136 L Potassium (3.5 - 5.1 mmol/L) 4.1 4.3 Chloride (98 - 107 mmol/L) 102 102 Carbon Dioxide (22 - 30 mmol/L) 24 24 Anion Gap (5 - 16) 10 10 BUN (7 - 17 mg/dL) 10 10 Creatinine (0.5 - 1.0 mg/dL) 0.5 0.4 L Estimated GFR (>60 ml/min) > 60 > 60 BUN/Creatinine Ratio (7 - 25 %) 20.0 25.0 Phosphorus (2.5 - 4.5 mg/dL) 3.2 3.7 Magnesium (1.6 - 2.3 mg/dL) 1.9 1.9 Total Bilirubin (0.2 - 1.3 mg/dL) 18.7 H Direct Bilirubin (< 0.4 mg/dL) 16.5 H AST (14 - 36 U/L) 126 H ALT (9 - 52 U/L) 67 H Alkaline Phosphatase (<127 U/L) 180 H Total Protein (6.3 - 8.2 g/dL) 5.3 L Albumin (3.5 - 5.0 g/dL) 2.5 L Coagulation PT (9.4 - 12.5 SEC) 14.1 H 13.9 H INR (0.90 - 1.19) 1.35 H 1.33 H Hematology CBC w Diff MAN DIFF ORDERED MAN DIFF ORDERED WBC (4.8 - 10.8 /CUMM) 16.0 H 14.7 H RBC (4.20 - 5.40 /CUMM) 3.31 L 3.44 L Hgb (12.0 - 16.0 G/DL) 11.6 L 12.0 Hct (37 - 47 %) 35.1 L 36.3 L MCV (81.0 - 99.0 FL) 106.1 H 105.4 H MCH (27.0 - 31.0 PG) 35.0 H 34.9 H RDW (11.5 - 14.5 %) 17.3 H 17.2 H Plt Count (130 - 400 /CUMM) 234 188 MPV (7.4 - 10.4 FL) 11.7 H 11.9 H Segmented Neutrophils (42.2 - 75.2 %) 69 57 Band Neutrophils (0.0 - 5.0 %) 12 H 9 H Lymphocytes (20.5 - 51.1 %) 4 L 17 L Monocytes (1.7 - 9.3 %) 13 H 14 H Basophils (0.0 - 2.0 %) 1 1 Metamyelocytes (0.0 - 1.0 %) 1 2 H Platelet Estimate (ADEQUATE) ADEQUATE ADEQUATE Polychromasia 2+ Hypochromic-Microcytic 1+ 1+ Anisocytosis 1+ Macrocytic Cells 2+ 2+ Stomatocytes 2+ PUBS MCHC (33.0 - 37.0 G/DL) 33.0 33.2 07/16 07/15 0620 1825 Chemistry Sodium (137 - 145 mmol/L) 135 L Potassium (3.5 - 5.1 mmol/L) 4.1 Chloride (98 - 107 mmol/L) 101 Carbon Dioxide (22 - 30 mmol/L) 25 Anion Gap (5 - 16) 10 BUN (7 - 17 mg/dL) 9 Creatinine (0.5 - 1.0 mg/dL) 0.5 Estimated GFR (>60 ml/min) > 60 BUN/Creatinine Ratio (7 - 25 %) 18.0 Phosphorus (2.5 - 4.5 mg/dL) 2.9 Magnesium (1.6 - 2.3 mg/dL) 1.9 Total Bilirubin (0.2 - 1.3 mg/dL) 15.6 H Direct Bilirubin (< 0.4 mg/dL) 13.7 H AST (14 - 36 U/L) 140 H ALT (9 - 52 U/L) 81 H Alkaline Phosphatase (<127 U/L) 204 H Total Protein (6.3 - 8.2 g/dL) 5.5 L Albumin (3.5 - 5.0 g/dL) 2.7 L Coagulation PT (9.4 - 12.5 SEC) 13.7 H INR (0.90 - 1.19) 1.31 H Hematology CBC w Diff MAN DIFF ORDERED WBC (4.8 - 10.8 /CUMM) 13.1 H RBC (4.20 - 5.40 /CUMM) 3.47 L Hgb (12.0 - 16.0 G/DL) 12.1 Hct (37 - 47 %) 36.7 L MCV (81.0 - 99.0 FL) 105.8 H MCH (27.0 - 31.0 PG) 34.9 H RDW (11.5 - 14.5 %) 17.2 H Plt Count (130 - 400 /CUMM) 131 MPV (7.4 - 10.4 FL) 12.2 H Segmented Neutrophils (42.2 - 75.2 %) 55 Band Neutrophils (0.0 - 5.0 %) 7 H Lymphocytes (20.5 - 51.1 %) 12 L Monocytes (1.7 - 9.3 %) 23 H Eosinophils (0 - 5.0 %) 3 Platelet Estimate (ADEQUATE) VERIFIED BY SMEAR Poikilocytosis 1+ Anisocytosis 1+ Target Cells 1+ Stomatocytes 1+ PUBS MCHC (33.0 - 37.0 G/DL) 33.0 Urines Urinalysis LIGHT H Urine Color (YEL,AMB,STR) ORANG H Urine Clarity (CLEAR) HAZY H Urine pH (5.0 - 8.0) 6.5 Ur Specific Kempner (1.001 - 1.035) 1.015 Urine Protein (NEG,<30 MG/DL) 30 H Urine Ketones (NEG) TRACE H Urine Nitrite (NEG) POS H Urine Bilirubin (NEG) POS@ICTO H Urine Urobilinogen (0.1 - 1.0 EU/dl) 1.0 Ur Leukocyte Esterase (NEG) NEG Ur Microscopic SEDIMENT EXAMINED Urine RBC (0 - 5 /HPF) RARE Urine WBC (0 - 2 /HPF) 3-5 H Ur Epithelial Cells (NONE,FEW) MOD H Urine Bacteria (NEG/NONE) MANY H Urine Mucus (FEW,NONE) FEW Urine Hemoglobin (NEG) NEG Urine Glucose (N MG/DL) NEG Imaging/Other Studies: Stool C. difficile toxin negative. Culture pending. CT scan from several days ago was without ascites, nor intestinal distention.
--- NOTE | 2016-07-18 15:13 | NUR ---
PATIENT OFF FLOOR FOR X RAY
--- NOTE | 2016-07-18 15:44 | RADIOLOGY REPORT ---
EXAMINATION: XR ABDOMEN CLINICAL INDICATION: Abdominal distention COMPARISON: 07/15/2016 CT scan abdomen pelvis TECHNIQUE: AP view of the abdomen. FINDINGS: There is a paucity of the small bowel gas which can be due to fluid-filled small bowel loops. Gas and stool are seen in the course of sigmoid colon and rectum. Splenomegaly. The right lateral aspect of the abdomen and right diaphragmatic are not included in this exam. There is a 10 mm calcific density adjacent to L1 right transverse process, correlates with the gallstone seen on the comparison CT scan. No free intra-abdominal air seen in this x-ray. IMPRESSION: Limited exam. No significant interval change as compared to 07/15/2016 CT scan. No x-ray evidence of bowel obstruction.
--- NOTE | 2016-07-18 18:12 | NUR ---
1600 BACK ON FLOOR ALERT AND ORIENTED X 3. ON ROOM AIR. DENIES SHORTNESS OF BREATH VITAL SIGNS STABLE. HR 112 DAY MD AWARE. DENIES NUMBNESS/TINGLING NO EDEMA NOTED. JAUNDICE NOTED. DENIES ANY PAIN BLOODY STOOL NOTED. PATTERN ROOM ATTENDANT AWARE. PATIENT RESTING AT THIS TIME WILL CONTINUE TO MONITOR
[2016-07-19 06:00] VITALS: BP 120/70
[2016-07-19 06:58] VITALS: BP 120/70
--- NOTE | 2016-07-19 07:44 | NUR ---
Followiwng patients progress. While Amina's detox seems to be finished and without complications, she has had some medical issues related to her chronic GI concerns. Concurrent clinical review submited to [facility] on Tuesday, 07/16; additional 3 units received through today with review due tomorrow. Follow
--- NOTE | 2016-07-19 07:59 | PN- Housestaff ---
Subjective Follow-up For: Alcohol detoxification, resolved; Dyselectrolytemia, resolving; Alcoholic hepatitis; Abdominal distension; BRBPR. Complaints: BRBPR Subjective: I followed up and examined the patient today. She is resting comfortably in bed , abdomen distended but not in distress. Complains that she is still having bright red blood per rectum with mucusy stool. Vitals have been stable, no overnight issues otherwise. She is currently nothing by mouth, awaiting lower GI endoscopy later today. Review of Systems Constitutional: Reports: see HPI. Gastrointestinal: Reports: bloody stool. Objective Last 24 Hrs of Vital Signs/I&O Vital Signs Date Time Temp Pulse Resp B/P B/P Pulse O2 O2 Flow FiO2 Mean Ox Delivery Rate 07/19 1229 99.0 102 20 114/76 96 Room Air 07/19 0658 98.6 100 20 120/70 90 Room Air / 0600 98.6 100 20 120/70 07/18 2227 99.5 108 20 120/80 92 Room Air 07/18 2200 99.5 108 20 120/80 Intake & Output 07/19 1600 07/19 0800 07/19 0000 Intake Total 0 0 500 Output Total 300 Balance 0 0 200 Intake, Oral 0 0 500 Number 6 15 3 Bowel Movements Output, Urine 300 Physical Exam General Appearance: Alert, Oriented X3, Cooperative, No Acute Distress Other Physical Findings: No new findings from yesterday's clinical examination. Current Medications: Current Medications Sig/Connor Start time Last Medication Dose Route Stop Time Status Admin Albuterol Sulfate 2 PUF Q4 HRS NEEDED PRN 07/16 1915 AC INH Ceftriaxone Sodium 1,000 MG Q24H 07/16 1600 AC 07/19 IV 1810 Chlorhexidine 1 GM .STK-MED ONE 07/19 1420 DC Gluconate TOP 07/19 1421 Cholestyramine Resin 1 PAC BID 07/15 1442 AC 07/19 PO 205 Folic Acid 1 MG DAILY 07/09 1433 AC 07/19 PO 09 Loperamide HCl 2 MG Q3P PRN 07/13 0945 AC 07/18 PO 0529 Multivitamins 1 TAB DAILY 07/09 1433 AC 07/19 PO 0926 Omeprazole 40 MG DAILY AC 07/13 0734 AC 07/19 PO 0600 Ondansetron HCl 4 MG Q6P PRN 07/15 1445 AC 07/15 IV 1452 Patient Medication 1 ED .STK-MED ONE 07/19 1409 GA Teaching ED 07/19 1410 Phenylephrine HCl 1 TEMI Q6P PRN 07/15 1630 AC WA Sodium Phosphate 2 UNIT ONCE ONE 07/19 0600 DC 07/19 WA 07/19 0601 0559 Thiamine HCl 100 MG DAILY 07/09 1433 AC 07/19 PO 0926 Last 24 Hrs of Lab/Anand Results Last 24 Hrs of Labs/Mics: Laboratory Tests 07/19/16 0635: Anion Gap 11, Estimated GFR > 60, BUN/Creatinine Ratio 22.5, Total Bilirubin 20.5 H, Direct Bilirubin 18.4 H, AST 133 H, ALT 73 H, Alkaline Phosphatase 185 H, Total Protein 5.6 L, Albumin 2.6 L, PT 14.9 H, INR 1.42 H, CBC w Diff MAN DIFF ORDERED, RBC 3.33 L, MCV 105.4 H, MCH 35.2 H, RDW 18.3 H, MPV 11.7 H, Segmented Neutrophils 77 H, Band Neutrophils 8 H, Lymphocytes 12 L, Monocytes 3, Platelet Estimate ADEQUATE, Poikilocytosis 1+, Anisocytosis 1+, Macrocytic Cells 1+, Stomatocytes 1+, PUBS MCHC 33.4 Assessment/Plan Assessment: 55-year-old female with past medical history of right sided breast cancer, status post mastectomy, COPD, GERD, was brought in by her sister for alcohol detoxification. Patient is currently being admitted in the general medical floor: Pyelonephritis * Continue ceftriaxone, today is day 4 Alcoholic liver disease, hepatitis * Patient's Total bilirubin is trending daily 20.5, but AST, ALT, alkaline phosphatase are trending down. * Continue cholestyramine * USG of liver suggestive of hepatic steatosis with free fluid in the RUQ. Non- tender ruling out SBP clinically. * CT abd-pelvis did not show ascites, but demonstrated hepatomegaly and hepatic steatosis. The size of the liver has increased up to 20 cm in CC dimension. * Patient's abdomen is distended but not tender, thus has low suspicion for spontaneous bacterial peritonitis. This AM, pt had tenderness on palpating RUQ, but this is non-specific. * GI service consulted. Will follow recommendations. IBS * Continues to have diarrhea, but it is blood dmixed now. Electrolytes are getting better. Stool culture nagative from last time and so has been C diff. Tuesday's stool culture results ending. Fecal elastase, fecal fat, ordered per GI consultation. Peding results. * GI consult appreciated. Bright red blood per rectum Patient has had on and off episodes of bright red blood per rectum, this time with mucus. C. difficile ruled out. Stool culture pending. Vitals have been stable, and we'll monitor her closely. * Inform gastroenterology services immediately if patient starts bleeding profusely or there is a significant change in vital statistics. * She is undergoing lower GI endoscopy today, has been NPO from [place]. Need to follow UGI endoscopy results. Alcohol withdrawal, detoxification completed Patient seems to have chronic alcohol-related problems, has recently started drinking heavily, more than usual, but has the will to cut down on alcohol. CIWA improved, so stopped PO Ativan, but continue IV PRN Ativan. Continue thiamine, folic acid, and multivitamins. Will consider starting her on acamprosate 666 mg 3 times daily per Psychiatry consult, if required (likely not). * Social works consult has been placed, will follow. * Appreciate Psychiatry services consult. Possible refeeding syndrome with dyselectrolytemia, improved Reported intense tiredness, is feeling better today. Potassium, Phos and Mag improved. * She was aggressively repleted orally and intravenously * Will closely monitor * Repeat BEP, Phos and Mag tomorrow. * Diarrhea secondary to irritable bowel syndrome can also be one of the causes of decreased electrolytes. Have normalized after her bowel symptoms are in control. Malnutrition * Patient's BMI is 25.8 but her albumin is 2.7, which was 4.0 on July 09, and the patient has had severe electrolyte disbalance most possibly due to alcohol or malabsorption, or diarrhea/IBS. In any case, patient is malnourished and would benefit from nutritional consult. Hypoxia * Patient is breathing normally on room air, hypoxia has resolved. Thrombocytopenia * Platelet count trending 259 today, was 234, 188, 131, 119, 96, 64, 57, 58, 72, 84. * Likely due to alcohol * No active bleeding * Will continue to monitor Clinical depression/Major Depressive Disorder, no SI/HI * Not starting any psychotropics per Psychiatric consult currently. They will reassess once she is detoxified. #Diet: Regular diet #DVT prophylaxis: ALPS #CODE STATUS is full code Problem List: 1. IBS (irritable bowel syndrome) 2. BRBPR (bright red blood per rectum) 3. Alcohol dependence with withdrawal 4. Alcoholic hepatitis Pain Ratin Pain Location: - Pain Goal: Pain 4 or less Pain Plan: prn Tomorrow's Labs & Rationales: INR, LFT, CBC, BEP, Mg, phos
[2016-07-19 08:15] LABS: MEAN CORPUSCULAR HGB 35.2 PG (27.0-31.0); MEAN CORPUSCULAR HGB CONC 33.4 G/DL (33.0-37.0); MEAN CORPUSCULAR VOLUME 105.4 FL (81.0-99.0); MEAN PLATELET VOLUME 11.7 FL (7.4-10.4); PLATELET COUNT 259 /CUMM (130-400); RBC DISTRIBUTION WIDTH 18.3 % (11.5-14.5); RED BLOOD CELL CT 3.33 /CUMM (4.20-5.40)
[2016-07-19 08:18] LABS: PT 14.9 SEC (9.4-12.5)
--- NOTE | 2016-07-19 11:04 | NUR ---
NURSING NOTE: PATIENT REQUESTED TO BE CLEANED UP AND BED LINENS CHANGED AFTER SHE GOES FOR COLONOSCOPY THIS AFTERNOON. WILL CONTINUE TO MONITOR.
--- NOTE | 2016-07-19 11:34 | NUR ---
NURSING NOTE: PATIENT'S CAME IN TO VISIT PATIENT AND ASKED TO SPEAK WITH PATIENT'S RING PACKER ABOUT INSURANCE ISSUES. RING PACKER VICKY NOTIFIED AND WILL SPEAK WITH PATIENT AND . WILL CONTINUE TO MONITOR.
[2016-07-19 12:29] VITALS: BP 114/76
--- NOTE | 2016-07-19 12:35 | NUR ---
NURSING NOTE: PATIENT LEFT FLOOR FOR GI SUITE FOR UPPER AND LOWER OSCOPIES. PATIENT A/OX3, DENIES PAIN AT THIS TIME. PATIENT JAUNDICE. PATIENT IV IN PLACE AND PATENT. PROCEDURE NAOMI COMPLETED AND SIGNED ON CHART. WILL AWAIT RETURN.
--- NOTE | 2016-07-19 13:08 | Proc Note Colonoscopy ---
Colonoscopy Procedure Medical History: unchanged (see [facility] consult/notes) Mental Status: alert/oriented Heart/Lung Eval Prior to Sedation: within normal limits Candidate for Sedation? Yes Date of Last Colonoscopy: 2013 Procedure Date: 07/19/16 Procedure Type: colonoscopy w/biopsy Sewing Department Supervisor: Andrew Bruno MD ASA Classification: III Indications: Bloody diarrhea. Instrument (Colonoscope): single channel Meds Received: MAC Patient's Tolerance: good Complications: none Extent Reached: terminal ileum Prep: good Procedure: After getting written informed consent the patient was placed in the left lateral decubitus position with pulse oximetry, cardiac monitoring, and supplemental oxygen was given. IV sedation was given until the desired effect was achieved. A rectal exam was performed which revealed small external hemorrhoids. A high definition variable stiffness Olympus colonoscope was then inserted into the anus and advanced to the terminal ileum with little difficulty. Retroflexed views were obtained and photodocumentation was obtained. Close inspection of the colonic mucosa was performed on insertion and withdrawal of the colonoscope with a withdrawal time that was adequate in length to closely inspect all folds and murphy of the colon. Findings: There were a few scattered diverticula appreciated in the descending colon. The remainder of the visualized colonic mucosa was grossly unremarkable. There were no polyps, masses, ulcers or significant erythematous changes appreciated. Retroflexed views in the rectum revealed small internal hemorrhoids. The terminal ileum was normal in appearance. Random biopsies were obtained from the right with colon cold biopsy forceps and were sent to pathology for further evaluation. Impression: 1. Mild left-sided diverticulosis. 2. Grossly normal colonic and ileal mucosa status post random colonic biopsies. 3. Small internal and external hemorrhoids. Recommendations: 1. She should be advanced to a high fiber diet as tolerated. 2. Imodium should be used as needed for diarrhea. 3. She should follow up the pathology results me as an outpatient. 4. She should administer local/topical care for hemorrhoidal bleeding as needed. 5. She should repeat a colonoscopy in 10 years for screening purposes. Followup Colonscopy Screen In: in 10 years CC: SEBAS PICKENS,SHANIKA Hernández
--- NOTE | 2016-07-19 14:45 | PN- Att Addend ---
Attending Addendum Attending Brief Note Ms. Villatoro was interviewed, examined, and her EHR are reviewed. She still notes frequent diarrheal stools but overall notes that she is stronger. Rectal bleeding was evaluated today via colonoscopy. Maximum temperature is 99.9. The remainder of her vital signs are stable. She is now noticeably jaundiced. Pulmonary exam shows equal air movement without rales, rhonchi, or wheezes. Arteriovascular exam shows a regular rate and rhythm without murmur. Her abdomen remains softly distended but is nontender. Her WBC is now 17,000 and it is continuing to gradually rise. Her transaminases have essentially plateaued. Bilirubin has risen to 20. INR is 1.4. Colonoscopy findings are notable for a few diverticuli and internal and external hemorrhoids. Electrolyte abnormalities have corrected. Her serum albumin remains low. Previous urine culture grew Escherichia coli which was sensitive to ceftriaxone. Her acute alcohol withdrawal is essentially resolved with CIWA scores of 0. Her LFTs continue to be abnormal. We should continue to monitor her liver function tests and INRs. Of concern is the fact that her temperature and her white count had risen in spite of her being treated appropriately with ceftriaxone for her urinary tract infection. We should continue to treat her diarrhea. We should also continue to encourage oral intake and increased activity.
[2016-07-19 22:53] VITALS: BP 109/62
--- NOTE | 2016-07-20 06:09 | PN- Housestaff ---
LUC PICKENS,SONIA 07/20/16 0609: Subjective Follow-up For: Dyselectrolytemia, resolving; Alcoholic hepatitis; Abdominal distension; BRBPR. Subjective: Patient seen and examined this morning. Resting comfortably in bed with no acute complaints. No events reported overnight. CIWA score remains at 0, requiring no IV Ativan PRN over the past 24 hours. She had multiple bowel movements some of which were bloOdy (BRPR). Denies any fever, chills, chest discomfort, palpitations, dyspnea abdominal pain, nausea, vomiting, headache. Review of Systems Constitutional: Reports: see HPI. Objective Last 24 Hrs of Vital Signs/I&O Vital Signs Date Time Temp Pulse Resp B/P B/P Pulse O2 O2 Flow FiO2 Mean Ox Delivery Rate 07/20 1430 98.1 100 18 116/76 93 Room Air 07/20 0722 98.2 102 18 103/68 92 Room Air 07/19 2253 98.9 107 18 109/62 93 Room Air Intake & Output 07/20 1600 07/20 0800 07/20 0000 Intake Total 930 480 480 Output Total 350 350 Balance 580 130 480 Intake, IV 30 Intake, Oral 900 480 480 Number 3 2 Bowel Movements Output, Urine 350 350 Physical Exam General Appearance: Alert, Oriented X3, Cooperative, No Acute Distress Skin: No Rashes, No Breakdown, No Significant Lesion Skin Temp/Moisture Exam: Warm/Dry HEENT: Atraumatic, PERRLA, EOMI, Mucous Membr. moist/pink Neck: Supple, No thryomegaly, +2 Carotid Pulse wo Bruit Cardiovascular: Regular Rate, Normal S1, Normal S2, No Murmurs, Gallops, Rubs Lungs: rales in left base Abdomen: Normal Bowel Sounds, Soft, No Masses Extremities: No Clubbing, No Cyanosis, No Edema, Normal Pulses, No Tenderness/ Swelling Assessment/Plan Assessment: 55-year-old female with past medical history of right sided breast cancer, status post mastectomy, COPD, GERD, was admmited to for alcohol detoxification. Patient is currently being admitted in the general medical floor: Pyelonephritis * Currenlty on ceftriaxone - day 5 * May d/c today if CXR is negative for PNA Alcoholic liver disease, hepatitis Maddrey's discriminant score = 39.4 points (>32 points indicates poor prognosis and patient may benefit from glucocorticoid therapy). MELD score is 25->19.6% estimated 3 month mortality. Per discussion with with Dr. Bruno (GI) and Dr. Mullen (Attending) we will start her on steroid therapy. * PO prednisolone 40mg daily x 28 dyas with a 16-day prednisolone taper (we decrease the dose by 10 mg/day every four days until a dose of 10 mg/day is reached, at which point we decrease it by 5 mg/day every three days). * Stop therapy if patient develops signs of an infection like fever, cough or fails to show signs of improvement after a week of therapy (ie, those who fail to have improvement in their bilirubin or DF). * Monitor improvement by calculating the Liz's score after 7 days of treatment. * Continue cholestyramine * GI following, appreciate recs IBS Colonoscopy 6/5 grossly normal except for small internal and external hemorrhoids. * Continues to have diarrhea (still bloody) but improving. * BEP daily, replete electrolytes * Follow stool cultures * Follow up on biopsy results * Fecal elastase, fecal fat, ordered per GI consultation. Peding results. * Hgh fiber diet as tolerated * Imodium for diarrhea * Local/topical care for hemorrhoidal bleeding as needed. * Repeat a colonoscopy in 10 years for screening purposes. Bright red blood per rectum Patient has had on and off episodes of bright red blood per rectum, this time with mucus. C. difficile ruled out. Stool culture pending. Vitals have been stable, and we'll monitor her closely. * Inform gastroenterology services immediately if patient starts bleeding profusely or there is a significant change in vital statistics. * Colonoscopy 6/5 grossly normal except for small internal and external hemorrhoids. Alcohol withdrawal, detoxification completed * Discontinue CIWA protocol * Continue thiamine, folic acid, and multivitamins. * Will consider starting her on acamprosate 666 mg 3 times daily per Psychiatry consult, if required (likely not). * Social works consult has been placed, will follow. * Appreciate Psychiatry services consult. Possible refeeding syndrome with dyselectrolytemia, improved Reported intense tiredness, is feeling better today. Potassium, Phos and Mag improved. * She was aggressively repleted orally and intravenously * Will closely monitor * Repeat BEP, Phos and Mag as needed * Diarrhea secondary to irritable bowel syndrome can also be one of the causes of decreased electrolytes. Have normalized after her bowel symptoms are in control. Malnutrition * Patient's BMI is 25.8 but her albumin is 2.7, which was 4.0 on July 09, and the patient has had severe electrolyte disbalance most possibly due to alcohol or malabsorption, or diarrhea/IBS. In any case, patient is malnourished and would benefit from nutritional consult. Hypoxia * Patient is breathing normally on room air, hypoxia has resolved. Thrombocytopenia - improving * Platelet count trending up * Likely due to alcohol * No active bleeding * Will continue to monitor Clinical depression/Major Depressive Disorder, no SI/HI * Not starting any psychotropics per Psychiatric consult currently. They will reassess once she is detoxified. #Diet: Regular diet #DVT prophylaxis: ALPS #CODE STATUS is full code Problem List: 1. BRBPR (bright red blood per rectum) 2. Hypophosphatemia 3. Hypomagnesemia 4. Hypokalemia 5. Hemorrhoid 6. Ascites 7. IBS (irritable bowel syndrome) 8. GERD (gastroesophageal reflux disease) 9. COPD (chronic obstructive pulmonary disease) Pain Ratin Pain Location: 0 Pain Goal: Remain pain free Pain Plan: Mild Tomorrow's Labs & Rationales: CBC BEP SHANIKA MULLEN MD 07/20/16 1336: Attending MD Review Statement Attending Statement Attending MD Statement: examined this patient, discuss w/resident/PA/APPOINTMENT CLERK, agreed w/resident/PA/APPOINTMENT CLERK, discussed with case mgmt, amended to note Attending Assessment/Plan: Of major concern today is the patient's continued rise in bilirubin and also an increase in INR despite the fact that her transaminases have once again started to decrease. I agree with the initiation of prednisone alone as presented by Dr. Mays. We will need to monitor her liver functions and INR over the following week according to protocol. Her maximum temperature is once again 99.0 at approximately 1230 hrs. yesterday. WBC decreased slightly to 16,600 today. Today is her fifth day of ceftriaxone therapy for documented urinary tract infection. Upon examination I did hear some fine end inspiratory rales at the left base posteriorly. Although unlikely I would repeat a chest x-ray to determine if there is any evidence of pneumonitis. If the chest x-ray is negative I would give the fifth dose of ceftriaxone and discontinue antibiotics. If not I would institute broad- spectrum antibiotic coverage. At this time we can discontinue CIWA scores she is demonstrated no evidence of continued withdrawal. As to her diarrhea which has continued we should continue her loperamide and cholestyramine. There has been a decrease in the bloody component we should continue to follow her H&H and continue topical therapy for her hemorrhoids.
[2016-07-20 07:22] VITALS: BP 103/68
--- NOTE | 2016-07-20 07:53 | NUR ---
NURSING NOTE: ASSUMED CARE OF PT. PT AWAKE, A/OX3, STEADY GAIT NOTED, BED ALARM DCD ON PREVIOUS SHIFT; DIETARY AWARE OF NURSING MISC FOR HIGH FIBER DIET. SAFETY MAINTAINED. NEEDS IN REACH
[2016-07-20 08:33] LABS: PT 16.2 SEC (9.4-12.5)
[2016-07-20 08:41] LABS: HEMATOCRIT 34.1 % (37-47); MEAN CORPUSCULAR HGB 34.8 PG (27.0-31.0); MEAN CORPUSCULAR HGB CONC 33.1 G/DL (33.0-37.0); MEAN CORPUSCULAR VOLUME 105.1 FL (81.0-99.0); MEAN PLATELET VOLUME 11.2 FL (7.4-10.4); PLATELET COUNT 302 /CUMM (130-400); RBC DISTRIBUTION WIDTH 17.9 % (11.5-14.5); RED BLOOD CELL CT 3.24 /CUMM (4.20-5.40); WHITE BLOOD CELL COUNT 16.6 /CUMM (4.8-10.8)
--- NOTE | 2016-07-20 09:23 | Event Note ---
Event Note Event Note: Patient is being treated for alcoholic hepatitis but her labs have continued to show worsening total biliribin/direct bilirubin and increasing INR since admission despite improvements in her transaminases, though not yet back in the normal range. I calculated the Maddrey's discriminant score to be 39.4 points (>32 points indicates poor prognosis and patient may benefit from glucocorticoid therapy). MELD score is 25->19.6% estimated 3 month mortality. I think patient may benefit from steroid therapy. I have discussed these findings with Dr. Bruno (GI) and Dr. Garcia (Attending) and they agree with the plan. Plan -Patient has been started on PO prednisolone 40mg daily x 28 dyas with a 16-day prednisolone taper (we decrease the dose by 10 mg/day every four days until a dose of 10 mg/day is reached, at which point we decrease it by 5 mg/day every three days). -Stop therapy if patient develops signs of an infection like fever, cough or fails to show signs of improvement after a week of therapy (ie, those who fail to have improvement in their bilirubin or DF). -Monitor improvement by calculating the Casa's score after 7 days of treatment.
--- NOTE | 2016-07-20 13:18 | NUR ---
NURSING NOTE: PT C/O NAUSEA; ZOFRAN GIVEN, DR MULLEN AWARE
[2016-07-20 14:30] VITALS: BP 116/76
--- NOTE | 2016-07-20 14:53 | NUR ---
NURSING NOTE: PCXR DONE PER MD ORDER. PT DENIES DISTRESS AT THIS TIME.
--- NOTE | 2016-07-20 14:55 | NUR ---
NURSING SHIFT NOTE: PT REMAINS AWAKE, A/OX3, ROOM AIR, IV PATENT; OK PER DR MULLEN TO DC IV AFTER 1600PM DOSE. DENIES NAUSEA AT THIS TIME, DENIES PAIN, CIWA 0;DCD BY DOPE DRY HOUSE OPERATOR. ONE SMALL BLOODY BM THIS SHIFT. VOIDING ORANGE URINE, PT REMAINS JAUNDICE. STEADY GAIT NOTED, NEEDS IN REACH, DENIES COMPLAINTS
--- NOTE | 2016-07-20 16:06 | RADIOLOGY REPORT ---
EXAMINATION: XR PORTABLE CHEST CLINICAL INFORMATION: Leukocytosis and rales COMPARISON: 07/13/2016 TECHNIQUE: Portable AP view of the chest was obtained. FINDINGS: Lungs are symmetrically expanded and clear. Cardiac silhouette is in the normal size range. The mediastinal and hilar contours are normal. No pneumothorax or pleural effusion. The visualized bones are unremarkable. IMPRESSION: No acute cardiopulmonary abnormality.
--- NOTE | 2016-07-20 16:23 | NUR ---
Concurrent clinical [facility]. Authorization received for 2 additional units until 07/22/16. Case discussed with correctional casework specialist; will continue to follow.
[2016-07-20 22:00] VITALS: BP 110/70
--- NOTE | 2016-07-21 00:16 | NUR ---
ALERT AND ORIENTED X 3. ON ROOM AIR. DENIES SHORTNESS OF BREATH VITAL SIGNS STABLE. DENIES CHEST PAIN. + PULSES. DENIES NUMBNESS/TINGLING NO EDEMA NOTED. JAUNDICE. DENIES DISCOMFORT. PATIENT RESTING COMFORTABLY
--- NOTE | 2016-07-21 05:58 | PN- Housestaff ---
See Addendum Subjective Follow-up For: Dyselectrolytemia, resolving; Alcoholic hepatitis; Bloody diarrhea Subjective: Patient seen and examined this morning. Resting comfortably in bed with no acute complaints. Endorses persistent diarrhea but less bloody. Remains stable off CIWA protocol which was discontinued yest. Denies any fever, chills, chest discomfort, palpitations, dyspnea abdominal pain, nausea, vomiting, headache. No events reported overnight. Review of Systems Constitutional: Reports: see HPI. Objective Last 24 Hrs of Vital Signs/I&O Vital Signs Date Time Temp Pulse Resp B/P B/P Pulse O2 O2 Flow FiO2 Mean Ox Delivery Rate 07/21 0735 98.6 87 18 102/74 94 Room Air 07/20 2200 98.1 92 19 110/70 93 Room Air 07/20 1430 98.1 100 18 116/76 93 Room Air Intake & Output 07/21 1600 07/21 0800 07/21 0000 Intake Total 300 500 Output Total 600 550 Balance -300 -50 Intake, Oral 300 500 Number 1 Bowel Movements Output, Urine 600 550 Physical Exam General Appearance: Alert, Oriented X3, Cooperative, No Acute Distress Other Physical Findings: Skin: No Rashes, No Breakdown, No Significant Lesion Skin Temp/Moisture Exam: Warm/Dry HEENT: Atraumatic, PERRLA, EOMI, Mucous Membr. moist/pink Neck: Supple, No thryomegaly, +2 Carotid Pulse wo Bruit Cardiovascular: Regular Rate, Normal S1, Normal S2, No Murmurs, Gallops, Rubs Lungs: rales in left base Abdomen: Normal Bowel Sounds, Soft, No Masses Extremities: No Clubbing, No Cyanosis, No Edema, Normal Pulses, No Tenderness/ Swelling Current Medications: Current Medications Sig/Connor Start time Last Medication Dose Route Stop Time Status Admin Albuterol Sulfate 2 PUF Q4 HRS NEEDED PRN 07/16 1915 AC INH Ceftriaxone Sodium 1,000 MG Q24H 07/16 1600 DC 07/20 IV 07/20 1600 1658 Cholestyramine Resin 1 PAC BID 07/15 1442 AC 07/21 PO 1018 Folic Acid 1 MG DAILY 07/09 1433 AC 07/21 PO 1017 Loperamide HCl 2 MG Q3P PRN 07/13 0945 AC 07/18 PO 0529 Multivitamins 1 TAB DAILY 07/09 1433 AC 07/21 PO 1018 Omeprazole 40 MG DAILY AC 07/13 0734 AC 07/21 PO 0559 Ondansetron HCl 4 MG Q6P PRN 07/15 1445 AC 07/20 IV 1317 Phenylephrine HCl 1 TEMI Q6P PRN 07/15 1630 AC OR Prednisolone 40 MG DAILY 07/20 1000 AC 07/21 PO 1018 Thiamine HCl 100 MG DAILY 07/09 1433 AC 07/21 PO 1018 Last 24 Hrs of Lab/Anand Results Last 24 Hrs of Labs/Mics: Laboratory Tests 07/21/16 0623: Anion Gap 10, Estimated GFR > 60, BUN/Creatinine Ratio 22.0, Total Bilirubin 24.7 H, Direct Bilirubin 22.4 H, AST 151 H, ALT 68 H, Alkaline Phosphatase 180 H, Total Protein 5.6 L, Albumin 2.5 L, PT 15.3 H, INR 1.46 H Assessment/Plan Assessment: 55-year-old female with past medical history of right sided breast cancer, status post mastectomy, COPD, GERD, was admmited to for alcohol detoxification. Patient is currently being admitted in the general medical floor: Alcoholic liver disease, hepatitis Maddrey's discriminant score = 39.4 points (>32 points indicates poor prognosis and patient may benefit from glucocorticoid therapy). MELD score is 25->19.6% estimated 3 month mortality. Per discussion with with Dr. Bruno (GI) and Dr. Garcia (Attending) we will start her on steroid therapy. * PO prednisolone 40mg daily for 28 days - day 2 today * Upon discharge she will need a 16-day prednisolone taper (we decrease the dose by 10 mg/day every four days until a dose of 10 mg/day is reached, at which point we decrease it by 5 mg/day every three days). * Stop therapy if patient develops signs of an infection like fever, cough or fails to show signs of improvement after a week of therapy (ie, those who fail to have improvement in their bilirubin or DF). * Monitor improvement by calculating the Liz's score after 7 days of treatment. * Continue cholestyramine * GI following, appreciate recs IBS Colonoscopy 07/19 grossly normal except for small internal and external hemorrhoids. * Continues to have diarrhea (still bloody) but improving. * BEP daily, replete electrolytes * Follow stool cultures * Follow up on biopsy results * Fecal elastase, fecal fat, ordered per GI consultation. Peding results. * Hgh fiber diet as tolerated * Imodium for diarrhea * Local/topical care for hemorrhoidal bleeding as needed. * Repeat a colonoscopy in 10 years for screening purposes. Bright red blood per rectum Patient has had on and off episodes of bright red blood per rectum, this time with mucus. C. difficile ruled out. Stool culture pending. Vitals have been stable, and we'll monitor her closely. * Inform gastroenterology services immediately if patient starts bleeding profusely or there is a significant change in vital statistics. * Colonoscopy / grossly normal except for small internal and external hemorrhoids. Alcohol withdrawal, detoxification completed * Discontinue CIWA protocol * Continue thiamine, folic acid, and multivitamins. * Will consider starting her on acamprosate 666 mg 3 times daily per Psychiatry consult, if required (likely not). * Social works consult has been placed, will follow. * Appreciate Psychiatry services consult. Possible refeeding syndrome with dyselectrolytemia, improved Reported intense tiredness, is feeling better today. Potassium, Phos and Mag improved. * She was aggressively repleted orally and intravenously * Will closely monitor * Repeat BEP, Phos and Mag as needed * Diarrhea secondary to irritable bowel syndrome can also be one of the causes of decreased electrolytes. Have normalized after her bowel symptoms are in control. Pyelonephritis - resolved * Completed 5 days of IV ceftriaxone Malnutrition * Patient's BMI is 25.8 but her albumin is 2.7, which was 4.0 on July 09, and the patient has had severe electrolyte disbalance most possibly due to alcohol or malabsorption, or diarrhea/IBS. In any case, patient is malnourished and would benefit from nutritional consult. Hypoxia * Patient is breathing normally on room air, hypoxia has resolved. Thrombocytopenia - improving * Platelet count trending up * Likely due to alcohol * No active bleeding * Will continue to monitor Clinical depression/Major Depressive Disorder, no SI/HI * Not starting any psychotropics per Psychiatric consult currently. They will reassess once she is detoxified. #Diet: Regular diet #DVT prophylaxis: ALPS #CODE STATUS is full code Problem List: 1. BRBPR (bright red blood per rectum) 2. Hemorrhoid 3. GERD (gastroesophageal reflux disease) 4. IBS (irritable bowel syndrome) 5. COPD (chronic obstructive pulmonary disease) 6. Alcoholic hepatitis Pain Ratin Pain Location: 0 Pain Goal: Remain pain free Pain Plan: Mild Tomorrow's Labs & Rationales: CBC BEP
[2016-07-21 07:35] VITALS: BP 102/74
[2016-07-21] MEDS ORDERED: LOPERAMIDE2 M2 PO (08:10)
[2016-07-21] MEDS ORDERED: CHOLESTYRAMINE L4 GM PO (08:10)
[2016-07-21] MEDS ORDERED: ZOFRAN4 M2 PO (08:10)
[2016-07-21 08:11] LABS: PT 15.3 SEC (9.4-12.5)
[2016-07-21] MEDS ORDERED: FOLIC ACID1 M1 PO (08:12)
[2016-07-21] MEDS ORDERED: VITAMIN B-1100 MG PO (08:12)
[2016-07-21] MEDS ORDERED: ONE DAILY MULT1 EAC2 PO (08:12)
[2016-07-21] MEDS ORDERED: PREDNISOLO15 MG/5 M4 PO (08:12)
[2016-07-21 12:06] LABS: HEMATOCRIT 37.1 % (37-47); MEAN CORPUSCULAR HGB 34.5 PG (27.0-31.0); MEAN CORPUSCULAR HGB CONC 32.5 G/DL (33.0-37.0); MEAN CORPUSCULAR VOLUME 106.3 FL (81.0-99.0); MEAN PLATELET VOLUME 10.4 FL (7.4-10.4); PLATELET COUNT 413 /CUMM (130-400); RBC DISTRIBUTION WIDTH 18.6 % (11.5-14.5); RED BLOOD CELL CT 3.49 /CUMM (4.20-5.40); WHITE BLOOD CELL COUNT 16.2 /CUMM (4.8-10.8)
[2016-07-21 14:29] VITALS: BP 116/70
[2016-07-21 22:42] VITALS: BP 118/72
--- NOTE | 2016-07-22 05:37 | NUR ---
NURSE NOTE: PT CAME TO FLOOR BY STAFF. AAOX3, RA. HYPERTENSIVE 182/96 AND HEART RATE 78. CALLING SURGICAL PA AT THIS TIME AND WILL MONITOR. DENYING CHEST PAIN.
--- NOTE | 2016-07-22 06:01 | PN- Housestaff ---
Subjective Follow-up For: Dyselectrolytemia, resolving; Alcoholic hepatitis; Bloody diarrhea Subjective: Patient seen and examined this morning. Patient reports waking up naseous with diffuse abdominal pain this morning. No vomiting. Took Zofran with a mild improvement. Still has diarrhea but no more visible blood. Denies any fever, chills, chest discomfort, palpitations, dyspnea, headache. No events reported overnight. Review of Systems Constitutional: Reports: see HPI. Objective Last 24 Hrs of Vital Signs/I&O Vital Signs Date Time Temp Pulse Resp B/P B/P Pulse O2 O2 Flow FiO2 Mean Ox Delivery Rate 07/22 0653 97.1 90 18 122/86 94 Room Air 07/22 0000 Room Air 07/21 2242 97.6 89 18 118/72 93 / 1429 98.3 98 18 116/70 92 Room Air 07/21 0735 98.6 87 18 102/74 94 Room Air Intake & Output 07/22 0800 07/22 0000 07/21 1600 Intake Total 480 480 800 Output Total 750 Balance 480 480 50 Intake, IV 0 Intake, Oral 480 480 800 Number 2 1 6 Bowel Movements Output, Urine 750 Physical Exam General Appearance: Alert, Oriented X3, Cooperative, No Acute Distress Other Physical Findings: Skin: No Rashes, No Breakdown, No Significant Lesion Skin Temp/Moisture Exam: Warm/Dry HEENT: Atraumatic, PERRLA, EOMI, Mucous Membr. moist/pink Neck: Supple, No thryomegaly, +2 Carotid Pulse wo Bruit Cardiovascular: Regular Rate, Normal S1, Normal S2, No Murmurs, Gallops, Rubs Lungs: rales in left base Abdomen: Normal Bowel Sounds, Soft, No Masses Extremities: No Clubbing, No Cyanosis, No Edema, Normal Pulses, No Tenderness/ Swelling Current Medications: Current Medications Sig/Connor Start time Last Medication Dose Route Stop Time Status Admin Albuterol Sulfate 2 PUF Q4 HRS NEEDED PRN 07/16 1915 AC INH Cholestyramine Resin 1 PAC BID 07/15 1442 AC 07/21 PO 210 Folic Acid 1 MG DAILY 07/09 1433 AC 07/21 PO 1017 Loperamide HCl 2 MG Q3P PRN 07/13 0945 AC 07/21 PO 210 Multivitamins 1 TAB DAILY 07/09 1433 AC 07/21 PO 1018 Omeprazole 40 MG DAILY AC 07/13 0734 AC 07/21 PO 0559 Ondansetron HCl 4 MG Q6 PRN 07/22 0600 AC 07/22 PO 0601 Ondansetron HCl 4 MG Q6P PRN 07/15 1445 DC 07/20 IV 1317 Patient Medication 1 ED .STK-MED ONE 07/21 1211 DC Teaching ED 07/21 1212 Phenylephrine HCl 1 TEMI Q6P PRN 07/15 1630 AC HI Prednisolone 40 MG DAILY 07/20 1000 AC 07/21 PO 1018 Thiamine HCl 100 MG DAILY 07/09 1433 AC 07/21 PO 1018 Last 24 Hrs of Lab/Anand Results Last 24 Hrs of Labs/Mics: Laboratory Tests 07/21/16 1043: CBC w Diff MAN DIFF ORDERED, RBC 3.49 L, MCV 106.3 H, MCH 34.5 H, RDW 18.6 H , MPV 10.4, Segmented Neutrophils 80 H, Band Neutrophils 2, Lymphocytes 6 L, Monocytes 12 H, Platelet Estimate VERIFIED BY SMEAR, Poikilocytosis 1+, Anisocytosis 1+, Macrocytic Cells 1+, Target Cells FEW, PUBS MCHC 32.5 L Assessment/Plan Assessment: 55-year-old female with past medical history of right sided breast cancer, status post mastectomy, COPD, GERD, was admmited to for alcohol detoxification. Patient is currently being admitted in the general medical floor: Alcoholic liver disease, hepatitis Maddrey's discriminant score = 39.4 points (>32 points indicates poor prognosis and patient may benefit from glucocorticoid therapy). MELD score is 25->19.6% estimated 3 month mortality. Per discussion with with Dr. Bruno (GI) and Dr. Garcia (Attending) we will start her on steroid therapy. * PO prednisolone 40mg daily for 28 days - day 3 today * Upon discharge she will need a 16-day prednisolone taper (we decrease the dose by 10 mg/day every four days until a dose of 10 mg/day is reached, at which point we decrease it by 5 mg/day every three days). * Stop therapy if patient develops signs of an infection like fever, cough or fails to show signs of improvement after a week of therapy (ie, those who fail to have improvement in their bilirubin or DF). * Monitor improvement by calculating the Liz's score after 7 days of treatment. * Continue cholestyramine * GI following, appreciate recs IBS Colonoscopy 07/19 grossly normal except for small internal and external hemorrhoids. * Continues to have nonbloody diarrhea but improving. * BEP daily, replete electrolytes * Follow stool cultures - NGTD * Follow up on biopsy results outpatient * Follow fecal elastase, fecal fat * Hgh fiber diet as tolerated * Imodium for diarrhea * Local/topical care for hemorrhoidal bleeding as needed. * Repeat a colonoscopy in 10 years for screening purposes. Bright red blood per rectum - resolved Patient has had on and off episodes of bright red blood per rectum, this time with mucus. C. difficile ruled out. Stool culture pending. Vitals have been stable, and we'll monitor her closely. * Inform gastroenterology services immediately if patient starts bleeding profusely or there is a significant change in vital statistics. * Colonoscopy done on 07/19 was grossly normal except for small internal and external hemorrhoids. Alcohol withdrawal - resolved * Monitor off CIWA protocol * Continue thiamine, folic acid, and multivitamins. * Will consider starting her on acamprosate 666 mg 3 times daily per Psychiatry consult, if required (likely not). * Social works consult following * Appreciate psych recs Pyelonephritis - resolved * Completed 5 days of IV ceftriaxone Thrombocytopenia - resolved Likely due to alcohol. No active bleeding * Will continue to monitor Clinical depression/Major Depressive Disorder, no SI/HI * Not starting any psychotropics per psych * Cont to appreciate psych recs #Diet: Low sodium HHD #DVT prophylaxis: ALPS #CODE STATUS is full code Problem List: 1. Diarrhea 2. Hepatic steatosis 3. Gastroesophageal reflux disease 4. Alcoholic hepatitis 5. BRBPR (bright red blood per rectum) 6. IBS (irritable bowel syndrome) 7. COPD (chronic obstructive pulmonary disease) Pain Ratin Pain Location: 0 Pain Goal: Remain pain free Pain Plan: Mild Tomorrow's Labs & Rationales: LFTs, INR - started on steroid for liver dz 2. Hepatic steatosis 3. Gastroesophageal reflux disease 4. Alcoholic hepatitis 5. BRBPR (bright red blood per rectum) 6. IBS (irritable bowel syndrome) 7. COPD (chronic obstructive pulmonary disease) Pain Ratin Pain Location: 0 Pain Goal: Remain pain free Pain Plan: Mild Tomorrow's Labs & Rationales: LFTs, INR - started on steroid for liver dz
[2016-07-22 06:53] VITALS: BP 122/86
[2016-07-22 08:38] LABS: PT 13.9 SEC (9.4-12.5)
[2016-07-22 09:12] LABS: HEMATOCRIT 37.6 % (37-47); MEAN CORPUSCULAR HGB 35.1 PG (27.0-31.0); MEAN CORPUSCULAR HGB CONC 33.4 G/DL (33.0-37.0); MEAN CORPUSCULAR VOLUME 105.1 FL (81.0-99.0); MEAN PLATELET VOLUME 10.3 FL (7.4-10.4); PLATELET COUNT 455 /CUMM (130-400); RBC DISTRIBUTION WIDTH 17.7 % (11.5-14.5); RED BLOOD CELL CT 3.58 /CUMM (4.20-5.40); WHITE BLOOD CELL COUNT 14.5 /CUMM (4.8-10.8)
--- NOTE | 2016-07-22 14:22 | PN- Gastroenterology ---
Assessment/Plan Assessment/Recommendations: Assessment: Ms. Villatoro is a 55 year old female with D-IBS, GERD and etoh abuse who has been drinking more heavily over the past month and has been here for a few weeks with etoh hepatitis. Her bilirubin has continued to increase, but her INR has been stable and actually slightly improved so I remain hopeful that her bilirubin will start to improve with continued sobriety and now with the steroids that have been started. She had some vomiting this morning with a scant amount of blood which is likely secondary to a stefania mejia tear. She is not behaving as a variceal bleed and with her platelet count being > then 150k it is unlikely she has varices. Recommendations: 1. Follow daily LFTs and INR and would continue steroids, but would plan to re- calculate a Lille score in one week and consider stopping them if there is no significant improvement. Would also hold the steroids for signs of infection. 2. Follow CBC daily 3. Continue PO omeprazole 4. Administer anti-emetics as needed 5. Low sodium diet, but would keep NPO after midnight for a diagnostic EGD in the am If EGD is negative and patient is otherwise stable consideration should be given to discharge the patient home with close outpatient follow up to continue to monitor her bilirubin. She is currently not a transplant candidate due to recent active etoh use and therefore a translpant evaluation would be unhelpful at this time. Problem List: 1. Gastroesophageal reflux disease 2. Jaundice 3. BRBPR (bright red blood per rectum) Subjective Subjective: She was started on steroids 2 days ago for an worsening/elevated maddrey score. She had some abdominal discomfort this morning with vomiting with a scant amount of vomiting, but no clots. No melena, no brbpr. She continues to be jaundiced, but denies pruritus. Objective Vital Signs and I&Os Vital Signs Date Time Temp Pulse Resp B/P B/P Pulse O2 O2 Flow FiO2 Mean Ox Delivery Rate 07/22 0653 97.1 90 18 122/86 94 Room Air 07/22 0000 Room Air 07/21 2242 97.6 89 18 118/72 93 07/21 1429 98.3 98 18 116/70 92 Room Air Intake & Output 07/22 1600 07/22 0400 07/21 1600 07/21 0400 07/20 1600 07/20 0400 Intake Total 450 529 5233 500 1410 480 Output Total 100 1350 550 700 Balance 380 480 -250 -50 710 480 Intake, IV 0 30 Intake, Oral 850 182 9978 500 1380 480 Number 2 1 6 5 Bowel Movements Output, Urine 100 1350 550 700 Physical Exam General Appearance: well developed/nourished, no apparent distress, alert, comfortable Head: atraumatic Neck: normal inspection, supple, full range of motion Cardiovascular: regular rate/rhythm Abdomen: normal bowel sounds, soft, non-tender Rectal: deferred Back: normal inspection Neurologic/Psychiatric: no motor/sensory deficits, awake, alert, oriented x 3, no asterixis, no tremors Skin: jaundice Current Medications: Current Medications Sig/Connor Start time Last Medication Dose Route Stop Time Status Admin Albuterol Sulfate 2 PUF Q4 HRS NEEDED PRN 07/16 1915 AC INH Cholestyramine Resin 1 PAC BID 07/15 1442 AC 07/22 PO 0840 Folic Acid 1 MG DAILY 07/09 1433 AC 07/22 PO 0839 Loperamide HCl 2 MG Q3P PRN 07/13 0945 AC 07/21 PO 2104 Multivitamins 1 TAB DAILY 07/09 1433 AC 07/22 PO 0839 Omeprazole 40 MG DAILY AC 07/13 0734 AC 07/22 PO 0848 Ondansetron HCl 4 MG Q6 PRN 07/22 0600 AC 07/22 PO 0601 Ondansetron HCl 4 MG Q6P PRN 07/15 1445 DC 07/20 IV 1317 Phenylephrine HCl 1 TEMI Q6P PRN 07/15 1630 AC AZ Prednisolone 40 MG DAILY 07/20 1000 AC 07/22 PO 0839 Simethicone 80 MG Q6P PRN 07/22 0830 AC PO Thiamine HCl 100 MG DAILY 07/09 1433 AC 07/22 PO 0839 Trimethobenzamide HCl 200 MG Q8P PRN 07/22 0830 AC 07/22 IM 0835 Results Pertinent Lab Results: Laboratory Tests 07/22 07/21 0610 1043 Chemistry Sodium (137 - 145 mmol/L) 137 Potassium (3.5 - 5.1 mmol/L) 3.9 Chloride (98 - 107 mmol/L) 102 Carbon Dioxide (22 - 30 mmol/L) 25 Anion Gap (5 - 16) 10 BUN (7 - 17 mg/dL) 10 Creatinine (0.5 - 1.0 mg/dL) 0.5 Estimated GFR (>60 ml/min) > 60 BUN/Creatinine Ratio (7 - 25 %) 20.0 Total Bilirubin (0.2 - 1.3 mg/dL) 23.6 H Direct Bilirubin (< 0.4 mg/dL) 21.2 H AST (14 - 36 U/L) 185 H ALT (9 - 52 U/L) 78 H Alkaline Phosphatase (<127 U/L) 178 H Total Protein (6.3 - 8.2 g/dL) 5.6 L Albumin (3.5 - 5.0 g/dL) 2.5 L Coagulation PT (9.4 - 12.5 SEC) 13.9 H INR (0.90 - 1.19) 1.33 H Hematology CBC w Diff MAN DIFF ORDERED MAN DIFF ORDERED WBC (4.8 - 10.8 /CUMM) 14.5 H 16.2 H RBC (4.20 - 5.40 /CUMM) 3.58 L 3.49 L Hgb (12.0 - 16.0 G/DL) 12.6 12.1 Hct (37 - 47 %) 37.6 37.1 MCV (81.0 - 99.0 FL) 105.1 H 106.3 H MCH (27.0 - 31.0 PG) 35.1 H 34.5 H RDW (11.5 - 14.5 %) 17.7 H 18.6 H Plt Count (130 - 400 /CUMM) 455 H 413 H MPV (7.4 - 10.4 FL) 10.3 10.4 Segmented Neutrophils (42.2 - 75.2 %) 82 H 80 H Band Neutrophils (0.0 - 5.0 %) 2 Lymphocytes (20.5 - 51.1 %) 12 L 6 L Monocytes (1.7 - 9.3 %) 6 12 H Platelet Estimate (ADEQUATE) INCREASED VERIFIED BY SMEAR Normochromic RBCs VERIFIED Poikilocytosis 1+ 1+ Anisocytosis 1+ 1+ Macrocytic Cells 1+ Target Cells FEW PUBS MCHC (33.0 - 37.0 G/DL) 33.4 32.5 L / 06/06 0623 0627 Chemistry Sodium (137 - 145 mmol/L) 138 134 L Potassium (3.5 - 5.1 mmol/L) 4.1 4.2 Chloride (98 - 107 mmol/L) 104 101 Carbon Dioxide (22 - 30 mmol/L) 24 24 Anion Gap (5 - 16) 10 9 BUN (7 - 17 mg/dL) 11 10 Creatinine (0.5 - 1.0 mg/dL) 0.5 0.5 Estimated GFR (>60 ml/min) > 60 > 60 BUN/Creatinine Ratio (7 - 25 %) 22.0 20.0 Phosphorus (2.5 - 4.5 mg/dL) 3.5 Magnesium (1.6 - 2.3 mg/dL) 2.0 Total Bilirubin (0.2 - 1.3 mg/dL) 24.7 H 22.4 H Direct Bilirubin (< 0.4 mg/dL) 22.4 H 19.9 H AST (14 - 36 U/L) 151 H 127 H ALT (9 - 52 U/L) 68 H 63 H Alkaline Phosphatase (<127 U/L) 180 H 167 H Total Protein (6.3 - 8.2 g/dL) 5.6 L 5.3 L Albumin (3.5 - 5.0 g/dL) 2.5 L 2.4 L Coagulation PT (9.4 - 12.5 SEC) 15.3 H 16.2 H INR (0.90 - 1.19) 1.46 H 1.55 H Hematology CBC w Diff MAN DIFF ORDERED WBC (4.8 - 10.8 /CUMM) 16.6 H RBC (4.20 - 5.40 /CUMM) 3.24 L Hgb (12.0 - 16.0 G/DL) 11.3 L Hct (37 - 47 %) 34.1 L MCV (81.0 - 99.0 FL) 105.1 H MCH (27.0 - 31.0 PG) 34.8 H RDW (11.5 - 14.5 %) 17.9 H Plt Count (130 - 400 /CUMM) 302 MPV (7.4 - 10.4 FL) 11.2 H Segmented Neutrophils (42.2 - 75.2 %) 72 Band Neutrophils (0.0 - 5.0 %) 5 Lymphocytes (20.5 - 51.1 %) 11 L Monocytes (1.7 - 9.3 %) 12 H Platelet Estimate (ADEQUATE) VERIFIED BY SMEAR Anisocytosis 1+ Macrocytic Cells 1+ Target Cells FEW PUBS MCHC (33.0 - 37.0 G/DL) 33.1
[2016-07-22 14:35] VITALS: BP 118/80
--- NOTE | 2016-07-22 14:57 | PN- Att Addend ---
Attending Addendum Attending Brief Note Ms. Villatoro was interviewed, examined, and her EHR reviewed. She recounted the previous morning's events. She has had no further vomiting or hematemesis but still notes diarrhea (of decreasing frequency) with intermittent hematochezia. She remains afebrile with stable vital signs. Pulmonary exam is benign. Cardiovascular exam reveals a regular rate and rhythm. Her abdomen is softly distended and nontender. She remains jaundiced. WBC has started to decrease. Her bilirubin has also started to decrease and her INR is starting to correct. Her transaminases are unchanged to slightly increased. I agree with Dr. Bruno's assessment that she should have an EGD to rule out varices. Her continuing to treat her alcoholic hepatitis with prednisolone which appears to be having a beneficial effect at this time. Her rectal bleeding appears to be hemorrhoidal as her H&H has actually improved. We are continuing to treat her diarrhea with loperamide. Ms. Villatoro recognizes the fact that she must abstain from alcohol permanently but she is concerned about her overall mental status. We will have psychiatry revisit and await their suggestions. We are continuing folate, thiamine, and multivitamins.
[2016-07-22 21:43] VITALS: BP 124/82
--- NOTE | 2016-07-23 05:42 | NUR ---
NSG NOTE: PT REPORTS 4-5 SMALL BM DURING THE NIGHT. ONE SMALL BLOODY BM NOTED. PT ALSO REPORTED TWO EPISODES OF NAUSEA DURING THE NIGHT, PT MEDICATED PER EMAR. MD CUMMINS AWARE. PT NPO AWAITING EGD THIS AM.
--- NOTE | 2016-07-23 05:46 | PN- Housestaff ---
LUC PICKENS,SHARI 07/23/16 0546: Subjective Follow-up For: Alcoholic hepatitis Hematemesis Diarrhea Subjective: Patient seen and examined this morning. No events reported overnight. She is currently NPO for EGD this morning. Still feels a little naseuous intermittently but it is improving and well controlled with the antiemetics. No further episodes of hematemesis since yest but she reports diarrhea with scant blood on top of stool yest. Denies any fever, chills, chest discomfort, palpitations, dyspnea, headache. Review of Systems Constitutional: Reports: see HPI. Objective Last 24 Hrs of Vital Signs/I&O Vital Signs Date Time Temp Pulse Resp B/P B/P Pulse O2 O2 Flow FiO2 Mean Ox Delivery Rate 07/22 2143 97.8 84 18 124/82 94 07/22 1435 98.4 82 20 118/80 94 Room Air Intake & Output 07/23 0800 07/23 0000 07/22 1600 Intake Total 480 600 Output Total 500 350 Balance -500 480 250 Intake, Oral 480 600 Number 3 1 Bowel Movements Output, Urine 500 350 Physical Exam General Appearance: Alert, Oriented X3, Cooperative, No Acute Distress Other Physical Findings: Skin: No Rashes, No Breakdown, No Significant Lesion Skin Temp/Moisture Exam: Warm/Dry HEENT: Atraumatic, PERRLA, EOMI, Mucous Membr. moist/pink Neck: Supple, No thryomegaly, +2 Carotid Pulse wo Bruit Cardiovascular: Regular Rate, Normal S1, Normal S2, No Murmurs, Gallops, Rubs Lungs: rales in left base Abdomen: Normal Bowel Sounds, Soft, No Masses Extremities: No Clubbing, No Cyanosis, No Edema, Normal Pulses, No Tenderness/ Swelling Current Medications: Current Medications Sig/Connor Start time Last Medication Dose Route Stop Time Status Admin Albuterol Sulfate 2 PUF Q4 HRS NEEDED PRN 07/16 1915 AC INH Cholestyramine Resin 1 PAC BID 07/15 1442 AC 07/22 PO 203 Folic Acid 1 MG DAILY 07/09 1433 AC 07/22 PO 0839 Loperamide HCl 2 MG Q3P PRN 07/13 0945 AC 07/21 PO 2104 Multivitamins 1 TAB DAILY 07/09 1433 AC 07/22 PO 0839 Omeprazole 40 MG DAILY AC 07/13 0734 AC 07/22 PO 0848 Ondansetron HCl 4 MG Q6 PRN 07/22 0600 AC 07/23 PO 0051 Phenylephrine HCl 1 TEMI Q6P PRN 07/15 1630 AC TN Prednisolone 40 MG DAILY 07/20 1000 AC 07/22 PO 0839 Simethicone 80 MG Q6P PRN 07/22 0830 AC PO Thiamine HCl 100 MG DAILY 07/09 1433 AC 07/22 PO 0839 Trimethobenzamide HCl 200 MG Q8P PRN 07/22 0830 AC 07/23 IM 0424 Assessment/Plan Assessment: 55-year-old female with past medical history of right sided breast cancer, status post mastectomy, COPD, GERD, was admmited to for alcohol detoxification. Patient is currently being admitted in the general medical floor: Alcoholic liver disease, hepatitis Maddrey's discriminant score = 39.4 points (>32 points indicates poor prognosis and patient may benefit from glucocorticoid therapy). MELD score is 25->19.6% estimated 3 month mortality. Per discussion with with Dr. Bruno (GI) and Dr. Mullen (Attending) we will start her on steroid therapy. * PO prednisolone 40mg daily for 28 days - day 4 today * Upon discharge she will need a 16-day prednisolone taper (we decrease the dose by 10 mg/day every four days until a dose of 10 mg/day is reached, at which point we decrease it by 5 mg/day every three days). * Stop therapy if patient develops signs of an infection like fever, cough or fails to show signs of improvement after a week of therapy (ie, those who fail to have improvement in their bilirubin or DF). * Monitor improvement by calculating the Liz's score after 7 days of treatment. * Continue cholestyramine * GI following, appreciate recs * EGD today to r/o varices IBS Colonoscopy 07/19 grossly normal except for small internal and external hemorrhoids. * Continues to have nonbloody diarrhea but improving. * BEP daily, replete electrolytes * Follow stool cultures - NGTD * Follow up on biopsy results outpatient * Follow fecal elastase, fecal fat * Hgh fiber diet as tolerated * Imodium for diarrhea * Local/topical care for hemorrhoidal bleeding as needed. * Repeat a colonoscopy in 10 years for screening purposes. Bright red blood per rectum - resolved Patient has had on and off episodes of bright red blood per rectum, this time with mucus. C. difficile ruled out. Stool culture pending. Vitals have been stable, and we'll monitor her closely. * Inform gastroenterology services immediately if patient starts bleeding profusely or there is a significant change in vital statistics. * Colonoscopy done on 07/19 was grossly normal except for small internal and external hemorrhoids. Alcohol withdrawal - resolved * Monitor off CIWA protocol * Continue thiamine, folic acid, and multivitamins. * Will consider starting her on acamprosate 666 mg 3 times daily per Psychiatry consult, if required (likely not). * Social works consult following * Appreciate psych recs Pyelonephritis - resolved * Completed 5 days of IV ceftriaxone Thrombocytopenia - resolved Likely due to alcohol. No active bleeding * Will continue to monitor Clinical depression/Major Depressive Disorder, no SI/HI * Not starting any psychotropics per psych * Cont to appreciate psych recs #Diet: Low sodium HHD #DVT prophylaxis: ALPS #CODE STATUS is full code Problem List: 1. Gastroesophageal reflux disease 2. Diarrhea 3. Hepatic steatosis 4. Alcohol dependence with withdrawal 5. Alcoholic hepatitis 6. COPD (chronic obstructive pulmonary disease) 7. GERD (gastroesophageal reflux disease) 8. Ascites 9. IBS (irritable bowel syndrome) Pain Ratin Pain Location: 0 Pain Goal: Remain pain free Pain Plan: Mild Tomorrow's Labs & Rationales: LFTs SHANIKA MULLEN MD 07/23/16 1522: Attending MD Review Statement Attending Statement Attending MD Statement: examined this patient, discuss w/resident/PA/BUSINESS ANALYST MANAGER, agreed w/resident/PA/BUSINESS ANALYST MANAGER, reviewed EMR data (avail), discussed with nursing, discussed with case mgmt, amended to note Attending Assessment/Plan: Ms. Villatoro still notes nausea but had no further emesis today. She still notes frequency of stool pattern appears to have only a single episode of hematochezia. She underwent EGD today with the only finding being that of some fundic polyps which were biopsied along with random biopsies of the gastric mucosa. He remains afebrile her vital signs are stable. Physical exam is essentially unchanged. WBC has continued to decrease. Bilirubin has also decreased and INR is essentially unchanged. As presented in our plan of yesterday we are attempting to discharge this patient to home. The single impediment to this plan is the inability to follow serial lab determinations. This is being discussed with the director of the laboratory and it appears that home draws may be possible. Her CMR has been reviewed and I agree with her medications with the exception of Ambien which I think we should not use. I will arrange for short-term follow-up on the first business day after her discharge.
[2016-07-23] MEDS ORDERED: OMEPRAZOLE40 M1 PO (05:54)
[2016-07-23 08:00] VITALS: BP 102/70
[2016-07-23 08:16] LABS: PT 14.3 SEC (9.4-12.5)
--- NOTE | 2016-07-23 08:22 | NUR ---
NURSING NOTE: PT LEFT FLOOR VIA STRETCHER WITH DISTRIBUTION FOR EGD IN GI. PT AWAKE, A/OX3, ROOM AIR, DENIES PAIN, GI CHECKLIST COMPLETE, CHART SENT WITH PT. NPO, AWAIT RETURN TO FLOOR. PT REMAINS JAUNDICE, EYES ICTERIC, PT DENIES N/V OR OTHER COMPLAINTS.
--- NOTE | 2016-07-23 09:14 | Proc Note Endoscopy ---
Endoscopy Procedure Medical History: unchanged (see [facility] consult/notes) Mental Status: alert/oriented Heart/Lung Eval Prior to Sedation: within normal limits Candidate for Sedation? Yes Procedure Date: 07/23/16 Procedure Type: EGD w/biopsy Pelletising Extruder Operator: Andrew Bruno MD ASA Classification: III Indications: Hematemesis, abdominal pain. Instrument: diagnostic gastroscope Meds Received: MAC Patient's Tolerance: good Complications: none Extent Reached: second part of duodenum Procedure: After getting written informed consent the patient was placed in the left lateral decubitus position with pulse oximetry, cardiac monitoring, and supplemental oxygen given. A bite block was inserted and IV sedation was given until the desired effect was achieved. A high definition upper Olympus endoscope was then inserted into the mouth and advanced to the second portion of the duodenum with little difficulty. Retroflexed views and photodocumentation was obtained. Findings: Esophagus: The esophageal mucosa was grossly normal appearance and there was a normal-appearing Z line at 40 cm from incisors. There were no esophageal strictures, ulcers, erosions, Esther-Kruse tears, or varices appreciated. Stomach: The gastric mucosa was grossly normal appearance. There were no ulcers , erosions, or masses appreciated. Distention and peristalsis of stomach appeared normal. Retroflexed views were normal and did not reveal a significant hiatal hernia, portal hypertensive gastropathy or gastric varices. There were several 2-4 mm sessile polyps in the body and fundus consistent in appearance with fundic gland polyps. A few of the polyps were sampled with cold biopsy forceps and were sent to pathology for further evaluation and random biopsies were also obtained from the antrum with cold biopsy forceps and were sent pathology for further evaluation. Duodenum: The duodenal bulb, sweep, and folds were grossly normal in appearance. Random biopsies were obtained from the second portion of duodenum and were sent pathology for further evaluation. There was bile appreciated throughout to the second portion of the duodenum. Impression: 1. Fundic gland polyps status post biopsies. 2. Otherwise grossly normal upper endoscopy without active bleeding or evidence of portal hypertension appreciated. Recommendations: 1. Advance diet as tolerated. 2. Continue an oral PPI as needed for heartburn or dyspeptic symptoms. 3. She should follow an antireflux regimen. 4. She should avoid NSAIDs. 5. She should follow up the pathology results with me as an outpatient. 6. If there are no other active issues consideration should be given to discharge the patient home later today with close follow-up as an outpatient for her alcoholic hepatitis. CC: SEBAS PICKENS,SHANIKA Hernández
[2016-07-23 09:41] VITALS: BP 110/60
--- NOTE | 2016-07-23 09:42 | NUR ---
NURSING NOTE: PT BACK TO FLOOR VIA STRETCHER WITH DISTRIBUTION FROM GI, PT AWAKE, A/OX3, ROOM AIR, VITALS OBTAINED, STEREOTYPE FINISHER AWARE, DIET ORDERED. PT SETTLED INTO BED, DENIES DISTRESS OR COMPLAINTS.
--- NOTE | 2016-07-23 13:15 | PN- Psychiatry ---
Assessment/Plan Impression: Identifying Info: 55-year-old single, recently unemployed female living with her boyfriend in [place], history of chronic off-and-on alcohol use over the past 6 years. Consult requested for ETOH use and depression. Reconsult ordered for mood and medication reccomendations. SUBJECTIVE "I feel fine." Denies any complaints at present, however she feels she would have an easier time maintaining sobriety if she started taking Lexapro again. asks to be restarted on it today. In the past she had been on 10mg and tolerated it well. Offered IOP and outpatient psychiatric services, pt is unsure if she would like to engage but states she will think about it after discharge. Brief ROS Gait: Not observed Sleep: Fair Appetite: Impaired OBJECTIVE Mental Status Exam Presentation/Appearance: Cooperative with evaluation. Hospital garb, lying in bed. Fine tremor noted. Orientation: x4 Sensorium: Awake and alert Eye contact: Appropriate Affect: Somewhat blunted but greater range than last visit Mood: "Fine" Depression: Denies Anxiety: Denies Thought Content: - Denies SI/HI, AH/VH, PI. States and also believes they will not kill themselves. - Denies Hopeless/Helpless Thoughts Thought Process: Linear Associations: Appropriate Speech: Normal tone and rate Judgment: Fair Insight: Fair Cognition: Memory: Grossly intact, staff reports impairment Attention/Concentration: Grossly intact Fund of Knowledge: Did not assess Abstractions:Did not assess MMSE: Did not assess ASSESSMENT 55-year-old single female with a history of treatment alcohol use over the past 6 years presents with increasing use in the context of job loss. At present she denies any mood symptoms and is experiencing mild alcohol withdrawal symptoms. She would like to start Lexapro which she had success with in the past. She denies any mood symptoms at present but feels the medication will be helpful to prvent them. Diagnosis Unspecified Mood Disorder Alcohol use disorder, severe Rule out adjustment disorder A total of 30 minutes was spent with the patient with more than 50% of the time spent in counseling and/or coordination of care. Suggestion: 1. Please start Lexapro 10mg daily. 2. Please include the following in the pts d/c instructions, "If you decide you would like to see psychiatry on an ongoing basis please call [facility] at [phone] to arrange for an intake appointment." Thank you for including psychiatry in this case we'll continue to follow only on an as-needed basis. Subjective Subjective: as above Objective Last 24 Hrs of Vital Signs/I&O Current Medications Sig/Connor Start time Last Medication Dose Route Stop Time Status Admin Albuterol Sulfate 2 PUF Q4 HRS NEEDED PRN 07/16 1915 AC INH Chlorhexidine 1 GM .STK-MED ONE 07/24 947 DC Gluconate TOP 07/23 0849 Cholestyramine Resin 1 PAC BID 07/15 1442 AC 07/23 PO 1055 Folic Acid 1 MG DAILY 07/09 1433 AC 07/23 PO 1055 Loperamide HCl 2 MG Q3P PRN 07/13 0945 AC 07/21 PO 2104 Multivitamins 1 TAB DAILY 07/09 1433 AC 07/23 PO 1055 Omeprazole 40 MG DAILY AC 07/13 0734 AC 07/22 PO 0848 Ondansetron HCl 4 MG .STK-MED ONE 07/24 947 DC IV 07/23 0849 Ondansetron HCl 4 MG Q6 PRN 07/22 0600 AC 07/23 PO 0051 Phenylephrine HCl 1 TEMI Q6P PRN 07/15 1630 AC MA Prednisolone 40 MG DAILY 07/20 1000 AC 07/23 PO 1056 Simethicone 80 MG Q6P PRN 07/22 0830 AC PO Thiamine HCl 100 MG DAILY 07/09 1433 AC 07/23 PO 1055 Trimethobenzamide HCl 200 MG Q8P PRN 07/22 0830 AC 07/23 IM 0424 Laboratory Tests 07/23/16 0610: Anion Gap 10, Estimated GFR > 60, BUN/Creatinine Ratio 16.7, Total Bilirubin 23.1 H, Direct Bilirubin 20.5 H, AST 251 H, ALT 102 H, Alkaline Phosphatase 190 H, Total Protein 5.6 L, Albumin 2.7 L, PT 14.3 H, INR 1.37 H Vital Signs Date Time Temp Pulse Resp B/P B/P Pulse O2 O2 Flow FiO2 Mean Ox Delivery Rate 07/23 940 98.3 98 20 110/60 96 Room Air 07/23 0800 97.9 94 20 102/70 96 Room Air 07/22 2143 97.8 84 18 124/82 94 07/22 1435 98.4 82 20 118/80 94 Room Air Intake & Output 07/23 1600 07/23 0800 07/23 0000 Intake Total 480 Output Total 500 Balance -500 480 Intake, Oral 480 Number 4 Bowel Movements Output, Urine 500
[2016-07-23] MEDS ORDERED: ONDANSETRON ODT4 M1 PO (13:40)
[2016-07-23] MEDS ORDERED: LEXAPRO10 M1 PO (13:41)
[2016-07-23 14:39] VITALS: BP 112/52
[2016-07-23] MEDS ORDERED: PREDNISOLO15 MG/5 M5 PO (16:17)
--- NOTE | 2016-07-26 16:12 | NUR ---
Late Entry: Aware of patients discharge on 07/23/16. Authorization had been received from [facility] for stay until today. [facility] notified of patients discharge home.
== END 2016-07-23 17:55 | DRG 280 ==
LOC: ERH 10:57 → ERHI 16:50 → 2NB 16:50 → ENRESERV 17:13 → ENTRNSPT 18:28 → 2NB 18:54 → CMPTRNSPT 19:08 → 2NB 07-12 20:38
PROVIDERS: Emergency Medicine; Internal Medicine; Student in an Organized Health Care Education/Training Program; ADMIT Internal Medicine
PROC: 0DBG8ZX Excision of Left Large Intestine, Via Natural or Artificial Opening Endoscopic, Diagnostic (ICD-10-PCS; principal; 2016-07-19)
PROC: 0DB68ZX Excision of Stomach, Via Natural or Artificial Opening Endoscopic, Diagnostic (ICD-10-PCS; 2016-07-23)
PROC: 0DB98ZX Excision of Duodenum, Via Natural or Artificial Opening Endoscopic, Diagnostic (ICD-10-PCS; 2016-07-23)
DX: K70.11 Alcoholic hepatitis with ascites (principal); D69.6 Thrombocytopenia, unspecified; N12 Tubulo-interstitial nephritis, not specified as acute or chronic; E83.42 Hypomagnesemia; E83.39 Other disorders of phosphorus metabolism; F10.239 Alcohol dependence with withdrawal, unspecified; R44.3 Hallucinations, unspecified; F10.229 Alcohol dependence with intoxication, unspecified; Y90.8 Blood alcohol level of 240 mg/100 ml or more; F32.9 Major depressive disorder, single episode, unspecified; E87.6 Hypokalemia; K29.20 Alcoholic gastritis without bleeding; K58.9 Irritable bowel syndrome, unspecified; K57.30 Diverticulosis of large intestine without perforation or abscess without bleeding; K64.8 Other hemorrhoids; R19.7 Diarrhea, unspecified; Z85.3 Personal history of malignant neoplasm of breast; K21.9 Gastro-esophageal reflux disease without esophagitis; K31.7 Polyp of stomach and duodenum
CPT/HCPCS: 2NBSP; 36415; 74000; 74177; 80307; 81001; 82436; 87045; 87086; 88305; 88312; 93005; 93010; 96360; 96361; 97110-GO; 97116-GO; 97161-GP; 97530-GO; G0480; J0696; J2405; J3101; J3250; J3490; J7040; J7060